=== PATIENT | male | born 1970 | race African-American/Black ===

== ENCOUNTER 2022-11-06 19:18 | Inpatient (IN) | payer BC ==
[~2022-11-06 19:18] MED LIST: HEPARIN SODIUM 1,000 UN/ML (10ML VL) IV ONE; METOPROLOL TARTRATE 5 MG/5 ML VIAL IVP ONE; PRASUGREL 10 MG TAB NG-TUBE ONE
[2022-11-06] MEDS ORDERED: DEXTROSE 5% IN WATER 100 ML with AMIODARONE 150 MG IV ONE ×3 (19:23→21:49)
[2022-11-06 19:26] LABS: Glucose,Whole Blood 153 mg/dL (70-110)
[2022-11-06] MEDS ORDERED: ETOMIDATE 2 MG/ML 10 ML VIAL IVP STA ×2 (19:26→19:32)
[2022-11-06] MEDS ORDERED: ROCURONIUM 10 MG/ML (5 ML VIAL) IV STA ×2 (19:26→19:32)
[2022-11-06] MEDS ORDERED: VERAPAMIL 2.5 MG/ML 2 ML AMP ONE (19:38)
--- NOTE | 2022-11-06 19:46 | ED ---
General Adult HPI - General Chief complaint: Cardiac Arrest/CPR Stated complaint: unresponsive Time Seen by Provider: 11/06/22 19:40 Source: EMS Mode of arrival: EMS Limitations: altered mental status - History of Present Illness Initial comments: Patient presents to the ED by ambulance for evaluation in cardiac arrest. Per EMS, the patient reported having chest pain and was ambulatory to the ambulance when they arrived. Per EMS, the patient was given aspirin his neighbors prior to their arrival, and he was given a dose of nitroglycerin by EMS. Initial EKG obtained by EMS and transmitted to the ED demonstrates ST elevations in leads V2 and V3. EMS reports that the patient became unresponsive and went into ventricular fibrillation arrest shortly thereafter. EMS reports shocking the patient 4 times prior to ED arrival. Patient was not on the nurse monitoring nor was CPR in progress on patient's arrival to the ED. CPR was started and patient was placed on a nurse monitoring immediately upon patient's arrival to the ED. Initial presenting ED cardiac rhythm was ventricular fibrillation. Patient was defibrillated with conversion to a perfusing wide complex rhythm with a measurable blood pressure and palpable peripheral pulses. A left hand peripheral IV was established, but infiltrated when patient was given given an IV amiodarone bolus. Two subsequent peripheral IVs were established, and patient was given another IV amiodarone (150mg) bolus, as well as an amp of IV sodium bicarbonate. Patient was then intubated via RSI, using IV etomidate and IV rocuronium. Dr. Anaya (interventional cardiology) was at bedside with the patient at this point and requested that the patient be transferred immediately to the labor arbitrator hearing office as the labor arbitrator hearing office was ready for him. Blood glucose obtained in the ED was in the 150s. - Related Data Allergies Allergy/AdvReac Type Severity Reaction Status Date / Time Unable to Assess Allergy Verified 11/06/22 19:32 Review of Systems ROS Statement: Those systems with pertinent positive or pertinent negative responses have been documented in the HPI. ROS Other: All systems not noted in ROS Statement are negative. Limitations: ROS unobtainable due to patients medical condition General Exam Limitations: altered mental status General appearance: other (Patient is unresponsive and with agonal respirations prior to intubation) Head exam: Present: atraumatic, normocephalic Eye exam: Present: other (Pupils are equal round and sluggishly reactive to light bilaterally) ENT exam: Present: mucous membranes moist Neck exam: Present: other (Trachea is midline) Respiratory exam: Present: normal lung sounds bilaterally, other (Agonal respirations prior to intubation). Absent: wheezes, rales, rhonchi, stridor Cardiovascular Exam: Present: normal rhythm, tachycardia, normal heart sounds (Normal radial pulses bilaterally (status post defibrillation)), other GI/Abdominal exam: Present: soft. Absent: guarding Extremities exam: Absent: pedal edema Neurological exam: Present: other (Patient is unresponsive and with agonal respirations prior to intubation) Skin exam: Present: warm, dry, intact Course Vital Signs 11/06/22 11/06/22 11/06/22 19:23 19:34 19:40 Pulse Rate 134 H 117 H Respiratory 0 L 14 Rate Blood Pressure 140/101 113/74 O2 Sat by Pulse 100 98 Oximetry Fraction of 100 Inspired Oxygen (FIO2) - Reevaluation(s) Reevaluation #1: 11/06/22 19:15 Code STEMI was activated and prehospital EKG findings were discussed with Dr. Anaya (blasting coal miner) over the phone. Patient has not yet arrived to the ED. 11/06/22 19:40 Patient is showing a normal sinus rhythm on the nurse monitoring and has palpable peripheral pulses at this time. Dr. Anaya is in the ED at bedside with the patient, and he requests sending the patient immediately to the labor arbitrator hearing office. He is aware that no ED EKG has been performed. 11/06/22 20:00 Case, H&P, prehospital EKG findings, ED management, and my discussions with Dr. Anaya as above were discussed with Dr. Sow. He accepts hospital admission. He has no further recommendations at this time. Procedures - Intubation Sedative: Etomidate Mg Given: 20 Paralytic: Rocuronium Mg Given: 50 Assist Device Used: other (Video laryngoscope) ET Tube Size: 8 ET Tube Uncuffed: No Tube Secured Depth (cm): 25 Tube Secured Location: lips Tube Placement Confirmation: visualized tube passing through cords, equal breath sounds bilaterally, no breath sounds over epigastrium Patient Tolerated Procedure: well Intubation Complications: none Medical Decision Making - Medical Decision Making Was pt. sent in by a medical professional or institution (, PA, ADMISSIONS GATE ATTENDANT, urgent care, hospital, or custodial...) When possible be specific @ -[No] Did you speak to anyone other than the patient for history (EMS, parent, family, police, friend...)? What history was obtained from this source @ -History was obtained from EMS. Did you review nursing and triage notes (agree or disagree)? Why? @ -[I reviewed and agree with nursing and triage notes] Were old charts reviewed (outside hosp., previous admission, EMS record, old EKG, old radiological studies, urgent care reports/EKG's, custodial records)? Report findings @ -[No old charts were reviewed] Differential Diagnosis (chest pain, altered mental status, abdominal pain women, abdominal pain men, vaginal bleeding, weakness, fever, dyspnea, syncope, headache, dizziness, GI bleed, back pain, seizure, CVA, palpatations, mental health, musculoskeletal)? @ -ACS/PA, STEMI, cardiac arrest, dysrhythmia, intracranial hemorrhage, syncope, dissection, pulmonary embolism, dehydration, left atrial abnormality, renal failure, hypoglycemia, CHF EKG interpreted by me (3pts min.). @ -[None done] X-rays interpreted by me (1pt min.). @ -Chest x-ray was reviewed myself, and I agree with the radiologist's interpretation as above. CT interpreted by me (1pt min.). @ -[None done] U/S interpreted by me (1pt. min.). @ -[None done] What testing was considered but not performed or refused? (CT, X-rays, U/S, labs)? Why? @ -[None] What meds were considered but not given or refused? Why? @ -[None] Did you discuss the management of the patient with other professionals (professionals i.e. , PA, ADMISSIONS GATE ATTENDANT, lab, RT, psych nurse, drug abuse social worker, passenger service supervisor, teacher, aboriginal liaison officer, supportive employment case manager)? Give summary @ -As above. Was smoking cessation discussed for >3mins.? @ -[No] Was critical care preformed (if so, how long)? @ -Yes, 50 minutes. Were there social determinants of health that impacted care today? How? (Homelessness, low income, unemployed, alcoholism, drug addiction, transportation, low edu. Level, literacy, decrease access to med. care, fpc, rehab)? @ -[No] Was there de-escalation of care discussed even if they declined (Discuss DNR or withdrawal of care, Hospice)? DNR status @ -[No] What co-morbidities impacted this encounter? (DM, HTN, Smoking, COPD, CAD, Cancer, CVA, ARF, Chemo, Hep., AIDS, mental health diagnosis, sleep apnea, morbid obesity)? @ -[None] Was patient admitted / discharged? Hospital course, mention meds given and route, prescriptions, significant lab abnormalities, going to OR and other pertinent info. @ -[Code STEMI was activated prior to patient's arrival to the ED based off of the initial EKG obtained by EMS and transmitted to the ED, which demonstrates ST elevations in leads V2 and V3. EMS reports that the patient became un responsive and went into ventricular fibrillation arrest shortly thereafter. EMS reports shocking the patient 4 times prior to ED arrival. Patient was not on the nurse monitoring nor was CPR in progress on patient's arrival to the ED. CPR was started and patient was placed on a nurse monitoring immediately upon patient's arrival to the ED. Initial presenting ED cardiac rhythm was ventricular fibrillation. Patient was defibrillated with conversion to a perfusing wide complex rhythm with a measurable blood pressure and palpable peripheral pulses. A left hand peripheral IV was established, but infiltrated when patient was given given an IV amiodarone bolus. Two subsequent peripheral IVs were established, and patient was given another IV amiodarone (150mg) bolus, as well as an amp of IV sodium bicarbonate. Patient was then intubated via RSI, using IV etomidate and IV rocuronium. Dr. Anaya (interventional cardiology) was at bedside with the patient at this point and requested that the patient be transferred immediately to the labor arbitrator hearing office, as the labor arbitrator hearing office was ready for him. Blood glucose obtained in the ED was in the 150s. Case was then discussed with Dr. Sow who accepted hospital admission.] Undiagnosed new problem with uncertain prognosis? @ -No Drug Therapy requiring intensive monitoring for toxicity (Heparin, Nitro, Insulin, Cardizem)? @ -[No] Were any procedures done? @ -[No] Diagnosis/symptom? @ -[Ventricular fibrillation cardiac arrest] Acute, or Chronic, or Acute on Chronic? @ -Acute Uncomplicated (without systemic symptoms) or Complicated (systemic symptoms)? @ -Complicated Side effects of treatment? @ -[No] Exacerbation, Progression, or Severe Exacerbation? @ -[No] Poses a threat to life or bodily function? How? (Chest pain, USA, PA, pneumonia, PE, COPD, DKA, ARF, appy, cholecystitis, CVA, Diverticulitis, Homicidal, Suicidal, threat to staff... and all critical care pts) @ -[No] Diagnosis/symptom? @ -STEMI Acute, or Chronic, or Acute on Chronic? @ -Acute Uncomplicated (without systemic symptoms) or Complicated (systemic symptoms)? @ -Complicated Side effects of treatment? @ -[none] Exacerbation, Progression, or Severe Exacerbation] @ -[no] Poses a threat to life or bodily function? @ -[no] - Lab Data Result diagrams: 11/06/22 19:53 11/06/22 19:53 Lab Results 11/06/22 11/06/22 11/06/22 Range/Units 19:24 19:53 19:53 WBC 16.4 H (3.8-10.6) k/uL RBC 5.27 (4.30-5.90) m/uL Hgb 16.2 (13.0-17.5) gm/dL Hct 51.1 (39.0-53.0) % MCV 96.9 (80.0-100.0) fL MCH 30.8 (25.0-35.0) pg MCHC 31.8 (31.0-37.0) g/dL RDW 12.8 (11.5-15.5) % Plt Count 282 (150-450) k/uL MPV 7.5 PT 9.7 (9.0-12.0) sec INR 0.9 (<1.2) APTT 22.4 (22.0-30.0) sec Sodium (137-145) mmol/L Potassium (3.5-5.1) mmol/L Chloride (98-107) mmol/L Carbon Dioxide (22-30) mmol/L Anion Gap mmol/L BUN (9-20) mg/dL Creatinine (0.66-1.25) mg/dL Est GFR (CKD-EPI)AfAm (>60 ml/min/1.73 sqM) Est GFR (CKD-EPI)NonAf (>60 ml/min/1.73 sqM) Glucose (74-99) mg/dL POC Glucose (mg/dL) 153 H (70-110) mg/dL POC Glu Cargo Checker ID [place] Calcium (8.4-10.2) mg/dL Magnesium (1.6-2.3) mg/dL Total Bilirubin (0.2-1.3) mg/dL AST (17-59) U/L ALT (4-49) U/L Alkaline Phosphatase (38-126) U/L Troponin I (0.000-0.034) ng/mL NT-Pro-B Natriuret Pep pg/mL Total Protein (6.3-8.2) g/dL Albumin (3.5-5.0) g/dL 11/06/22 11/06/22 11/06/22 Range/Units 19:53 19:53 19:53 WBC (3.8-10.6) k/uL RBC (4.30-5.90) m/uL Hgb (13.0-17.5) gm/dL Hct (39.0-53.0) % MCV (80.0-100.0) fL MCH (25.0-35.0) pg MCHC (31.0-37.0) g/dL RDW (11.5-15.5) % Plt Count (150-450) k/uL MPV PT (9.0-12.0) sec INR (<1.2) APTT (22.0-30.0) sec Sodium 144 (137-145) mmol/L Potassium 3.6 (3.5-5.1) mmol/L Chloride 106 (98-107) mmol/L Carbon Dioxide 19 L (22-30) mmol/L Anion Gap 19 mmol/L BUN 9 (9-20) mg/dL Creatinine 1.14 (0.66-1.25) mg/dL Est GFR (CKD-EPI)AfAm 86 (>60 ml/min/1.73 sqM) Est GFR (CKD-EPI)NonAf 75 (>60 ml/min/1.73 sqM) Glucose 135 H (74-99) mg/dL POC Glucose (mg/dL) (70-110) mg/dL POC Glu Cargo Checker ID Calcium 9.2 (8.4-10.2) mg/dL Magnesium 1.9 (1.6-2.3) mg/dL Total Bilirubin 0.9 (0.2-1.3) mg/dL AST 37 (17-59) U/L ALT 34 (4-49) U/L Alkaline Phosphatase 57 (38-126) U/L Troponin I 0.041 H* (0.000-0.034) ng/mL NT-Pro-B Natriuret Pep 32 pg/mL Total Protein 8.4 H (6.3-8.2) g/dL Albumin 4.7 (3.5-5.0) g/dL Critical Care Time Critical Care Time: Yes Total Critical Care Time: 50 Disposition Clinical Impression: Cardiac arrest with ventricular fibrillation, STEMI (ST elevation myocardial infarction) Disposition: ADMITTED IP TO THIS HOSP Condition: Critical Is patient prescribed a controlled substance at d/c from ED?: No Time of Disposition: 20:01
--- NOTE | 2022-11-06 19:54 | P.CRDCN ---
History of Present Illness Consult date: 11/06/22 History of present illness: History of Present Illness: The patient is a 52-year-old male who had an episode of chest discomfort at home, according to the ER staff upon arrival of the EMS he had a V. fib arrest requiring 4 cardioversions, subsequently was transferred to the ER on arrival he was unresponsive and was back in ventricular fibrillation requiring cardioversion and intubation. His EKG showed ST segment elevation anteriorly. The patient is intubated, unresponsive, in sinus mechanism with wide-complex rhythm and with a blood pressure around the 100 mmHg. No other history or family where available. Medications: Could not be obtained Review of Systems: Could not be obtained Physical Examination: 52-year-old male overweight intubated, nonresponsive ,Blood pressure 100/70, Heart rate 100 Head: Normocephalic. Eyes: Sclerae nonicteric. Neck: Good carotid upstroke, no bruit, no jugular venous distention. Lungs: Clear to auscultation. Heart: Regular rate and rhythm, S1-S2, no S3, no rub. No murmur. Abdomen: Soft nontender, positive bowel sounds no organomegaly. Extremities: No edema, intact distal pulses. Labs: Pending EKG: Initial EKG from EMS showed sinus mechanism with ST elevation in the anterior precordial leads Impression: 1. Acute anterior wall myocardial infarction 2. Ventricular fibrillation complicating the myocardial infarction 3. Respiratory failure Plan: 1. I have recommended to proceed with emergent cardiac catheterization in view of the presentation 2. Depending on the findings further recommendations will be made 3. The prognosis is guarded 4. No family was available 5. Thank you for this consult we will follow with you Medications and Allergies Allergies Allergy/AdvReac Type Severity Reaction Status Date / Time Unable to Assess Allergy Verified 11/06/22 19:32 Physical Exam Vitals: Vital Signs Pulse Resp BP Pulse Ox 11/06/22 19:34 117 H 14 113/74 98 11/06/22 19:23 134 H 0 L 140/101 100 Intake and Output 11/06/22 11/06/22 11/06/22 06:59 14:59 22:59 Other: Weight 158.258 kg Results Intake and Output 11/06/22 11/06/22 11/06/22 06:59 14:59 22:59 Other: Weight 158.258 kg Patient Weight 11/07/22 07:59 Weight 158.258 kg
[2022-11-06] MEDS ORDERED: SODIUM CHLORIDE 0.9% 1,000 ML IV ONE (19:56)
[2022-11-06] MEDS ORDERED: LIDOCAINE 1% INJ 10MG/ML (30 ML VIAL-PF) SQ ONE (19:57)
--- NOTE | 2022-11-06 19:57 | XR ---
EXAMINATION TYPE: XR chest 1V portable DATE OF EXAM: 11/06/2022 COMPARISON: NONE HISTORY: Cardiac arrest TECHNIQUE: Single view FINDINGS: There is some minimal pulmonary interstitial edema. Heart is top normal in size. Endotrache al tube is 3.4 cm from the mica. No pleural effusion. No pneumothorax. IMPRESSION: Mild increased pulmonary interstitial density.
[2022-11-06] MEDS ORDERED: VERAPAMIL SYRINGE (5 MG/10 ML) INTRAARTER ONE (19:59)
[2022-11-06 20:02] LABS: HCT 51.1 % (39.0-53.0); HGB 16.2 gm/dL (13.0-17.5); MCH 30.8 pg (25.0-35.0); MCHC 31.8 g/dL (31.0-37.0); MCV 96.9 fL (80.0-100.0); Mean Platelet Volume 7.5; Platelet Count 282 k/uL (150-450); RBC 5.27 m/uL (4.30-5.90); RDW 12.8 % (11.5-15.5); WBC 16.4 k/uL (3.8-10.6)
[2022-11-06] MEDS ORDERED: METOPROLOL TARTRATE 5 MG/5 ML VIAL IVP ONE ×5 (20:05→21:41)
[2022-11-06] MEDS ORDERED: PRASUGREL 10 MG TAB NG-TUBE ONE (20:05)
[2022-11-06] MEDS: HEPARIN SODIUM 1,000 UN/ML (10ML VL) IV ONE ×2 (20:05→21:13)
[2022-11-06] MEDS ORDERED: PRASUGREL 10 MG TAB ONE (20:07)
[2022-11-06] MEDS: MIDAZOLAM 2 MG/2 ML VIAL IV ONE ×4 (20:11→21:28)
[2022-11-06 20:14] LABS: Albumin 4.7 g/dL (3.5-5.0); Calcium 9.2 mg/dL (8.4-10.2); Magnesium 1.9 mg/dL (1.6-2.3); Potassium 3.6 mmol/L (3.5-5.1); Total Bilirubin 0.9 mg/dL (0.2-1.3); Total Protein 8.4 g/dL (6.3-8.2)
[2022-11-06 20:23] LABS: ABG Base Excess -5.6 mmol/L; ABG HCO3 22 mmol/L (21-25); ABG PCO2 53 mmHg (35-45); ABG PH 7.23 (7.35-7.45); ABG TCO2 24 mmol/L (19-24); Allen Test Performed? Yes
[2022-11-06] MEDS ORDERED: MIDAZOLAM 2 MG/2 ML VIAL IVP ONE ×2 (20:23→21:17)
[2022-11-06] MEDS ORDERED: IOPAMIDOL-370 125ML BTL INJ ONE (20:23)
[2022-11-06 20:28] LABS: INR 0.9 (<1.2); Partial Thromboplastin Time 22.4 sec (22.0-30.0); Prothrombin Time 9.7 sec (9.0-12.0)
[2022-11-06 20:40] LABS: ABG PO2 59 mmHg (83-108)
[2022-11-06 20:47] LABS: Eosinophils # (M) 0.66 k/uL (0-0.7); Lymphocytes # (M) 7.87 k/uL (1.0-4.8); Monocytes # (M) 0.82 k/uL (0-1.0); Neutrophils # (M) 7.05 k/uL (1.3-7.7); Neutrophils % (M) 43 %; Nucleated Red Blood Cells 0 /100 WBC (0-0); Total Cells Counted 100
[2022-11-06 20:50] LABS: RBC Morphology Normal
[2022-11-06 20:58] LABS: ABG Base Excess -5.3 mmol/L; ABG HCO3 22 mmol/L (21-25); ABG Oxygen Saturation 99.1 % (94-97); ABG PCO2 49 mmHg (35-45); ABG PH 7.26 (7.35-7.45); ABG PO2 126 mmHg (83-108); ABG TCO2 23 mmol/L (19-24); Allen Test Performed? Yes
[2022-11-06] MEDS ORDERED: IOPAMIDOL-370 100ML BTL INJ ONE (20:58)
[2022-11-06] MEDS ORDERED: fentaNYL (PF) 50 MCG/ML 2 ML AMP ONE (21:05)
[2022-11-06] MEDS ORDERED: NITROGLYCERIN SL TABS 0.4 MG TAB SUBLINGUAL PRN (21:17)
[2022-11-06] MEDS ORDERED: MAG HYDROX/AL HYDROX/SIMETH 30 ML CUP PO PRN (21:17)
[2022-11-06] MEDS ORDERED: ZOLPIDEM 5 MG TAB PO PRN (21:17)
[2022-11-06] MEDS ORDERED: ATROPINE SULFATE 0.1 MG/ML 10ML SYRINGE IV PRN (21:17)
[2022-11-06] MEDS: fentaNYL (PF) 50 MCG/1 ML VIAL IVP ONE ×2 (21:17→21:38)
[2022-11-06] MEDS ORDERED: RX INFO: IV CONTRAST WAS GIVEN 1 EACH MISC MISCELLANE PRN (21:17)
[2022-11-06] MEDS ORDERED: EPINEPHrine 10 ML SYRINGE (0.1 MG/ML) IV ONE (21:33)
[2022-11-06] MEDS ORDERED: SODIUM CHLORIDE 0.9% 500 ML 500 ML IV ONE (21:33)
[2022-11-06] MEDS ORDERED: LIDOCAINE 2% SYG (PF) 100 MG/5 ML IV ONE (21:35)
[2022-11-06] MEDS ORDERED: AMIODARONE 50 MG/ML 3 ML VIAL IV ONE (21:38)
--- NOTE | 2022-11-06 21:47 | P.CARDCATH ---
Date of Procedure: 11/06/22 Description of Procedure: Cardiac Catheterization: The patient is a 52-year-old male with unknown prior history who had an episode of chest comfort subsequently collapsed at home, was found by EMS to be in ventricular fibrillation, requiring 4 cardioversions, when he presented to the emergency room he was unresponsive and was back in V. fib was intubated and cardioverted. His EKG showed ST segment elevation anteriorly. No family was available. Recommendations were made regarding cardiac catheterization, Procedure Description: Patient was brought to labeling machine operator intubated and unresponsive. In the Seldinger technique, a 6-Tongan sheath was introduced in the right radial artery . Subsequently, selective coronary angiography was performed using a 5-Tongan 3.5 bend right Anish catheter, prior to that left coronary angiography was performed using a 6-Tongan 3.75 EBU guiding catheter. Multiple views of the coronary artery including hemiaxial views were obtained. After performing angioplasty and stenting, images of the right coronary artery were performed. PCI: Using the EBU guiding catheter and after cannulating the left main a 0.014 BMW J-wire was advanced across the total occlusion of the proximal LAD and positioned distally subsequently a 3.0 x 12 mm Treck was advanced into inflation at 8 alena were done, after removing the balloon a 3.5 x 23 mm Xience evette point stent was advanced and deployed at 16 alena, subsequently a 3.5X18 mm Xience evette point stent was deployed proximal to the first one and deployed at 16 alena, after removing the balloon an IVUS [place] catheter was introduced and imaging were obtained, after removing the catheter 4.0 x 20 mm NC Treck balloon was advanced and inflation up to 10 alena was done. After the last inflation and after appropriate wait the balloon and the wire were withdrawn back in the guiding catheter, images were obtained and reveal stable successful stenting. Subsequently The 5-Tongan pigtail catheter was used to cross the aortic valve and LVEDP was calculated. Following that, catheter and sheath were removed. Hemostasis was obtained with deployment of TR band . Of note, the patient received a total of 11,000 units of intravenous heparin as well as intra- arterial verapamil. He received an oral loading dose of Effient, his ACT was monitored. There was improvement in his ST segment elevation. Upon transferring the patient to his bed he had recurrent ventricular fibrillation requiring cardioversion 3, he was started on IV amiodarone and received lidocaine bolus with stabilization of his rhythm. His blood pressure was stable. Findings: Left main: This is a short sized vessel, bifurcating into LAD and left circumflex, left main has no high-grade stenosis LAD: This vessel is totally occluded proximally with no antegrade flow Left circumflex: This is a large nondominant vessel giving rise to a large obtuse marginal branch that has no evidence of high-grade stenosis RCA: This is a large dominant vessel bifurcating to PDA and PLV, the RCA has no evidence of high-grade stenosis Left Ventriculogram: Not performed Hemodynamics: There was no gradient across the aortic valve , LVEDP was 8-10 mmHg Conclusion: 1. Acutely occluded proximal LAD 2. No obstructive disease in the RCA and left circumflex 3. Successful stenting of the proximal LAD with reduction of stenosis from 100% to 0% with intravascular ultrasound imaging 4. Low left ventricle end-diastolic pressure Recommendations: The patient will continue on aspirin and Effient for at least 1 year without any interruption in addition to aggressive coronary risks modifications. The prognosis remains guarded. Further evaluation of his neurological status will be needed to rule out significant anoxic encephalopathy. No family was available to be updated. Duration of sedation is 63 minutes.
[2022-11-06 21:52] LABS: Glucose,Whole Blood 288 mg/dL (70-110)
[2022-11-06] MEDS ORDERED: AMIODARONE 360 MG in DEXTROSE 5% IN WATER 200 ML IV ONE ×2 (22:00)
[2022-11-06] MEDS ORDERED: propofoL 100 ML IV ONE (22:10)
[2022-11-06] MEDS ORDERED: Potassium Replacement Protocol 1 EACH MISC MISCELLANE PRN (22:24)
[2022-11-06] MEDS: NOREPINEPHRINE 4 MG in SODIUM CHLORIDE 0.9% 250 ML IV SCH (22:35)
[2022-11-06] MEDS: SODIUM CHLORIDE 0.9% 1,000 ML in EMPTY BAG 1 BAG IV SCH (22:48)
[2022-11-06] MEDS ORDERED: POTASSIUM BICARBONATE/CIT AC 20 MEQ TABLET.EFF NG-TUBE SCH (23:00)
[2022-11-06 23:03] LABS: Calcium 7.9 mg/dL (8.4-10.2); Potassium 3.2 mmol/L (3.5-5.1)
[2022-11-07 00:11] LABS: ABG Base Excess -4.1 mmol/L; ABG HCO3 22 mmol/L (21-25); ABG PCO2 40 mmHg (35-45); ABG PH 7.35 (7.35-7.45); ABG PO2 396 mmHg (83-108); ABG TCO2 23 mmol/L (19-24); Allen Test Performed? Yes
[2022-11-07] MEDS ORDERED: Potassium Replacement Protocol 1 EACH MISC MISCELLANE PRN (00:35)
--- NOTE | 2022-11-07 00:36 | P.HPIM ---
History of Present Illness H&P Date: 11/06/22 The patient is a 52-year-old male with a PMH of type II DM who was brought into the emergency room by EMS for cardiac arrest. History obtained from the ED provider in the chart as the patient was intubated at the time of interview. The patient had reportedly had an episode of chest discomfort at home where he had activated EMS. The patient was reportedly thengiven aspirin by his neigh bors and upon EMS arrival, he was ambulatory and was given sublingual nitroglycerin. Initial EKG was obtained which revealed ST elevations in leads V2 and V3. The patient subsequently became unresponsive and developed V. fib arrest. The patient was reportedly shocked 4 times by EMS. After arrival at the emergency room, the patient was noted to be in arrest and CPR was again initiated with initial rhythm being V. fib. The patient underwent another defibrillation with subsequent wide complex rhythm. He was intubated and was taken to the laborer shellfish processing which revealed an acutely occluded proximal LAD which was subsequently stented. Review of systems: Unable to obtain Physical examination: Vital signs reviewed General: Intubated male, no distress, appears at stated age, morbidly obese Derm: no unusual rashes/lesions, warm Head: atraumatic, normocephalic, symmetric Eyes: anicteric sclera, pinpoint pupils bilaterally ENT: Nose and ears atraumatic Neck: No cervical lymphadenopathy, trachea midline, supple Mouth: no lip lesion Cardiovascular: S1S2 reg, no murmur, positive dorsalis pedis pulse bilateral, no edema Lungs: CTA bilateral, no rhonchi, no rales, no accessory muscle use Abdominal: soft, no rigidity Ext: no gross muscle atrophy, no contractures, Neuro: Unable to assess, patient intubated and sedated Assessment: ST elevation CA from an acutely occluded LAD Status post V. fib arrest Type II DM Imaging: Chest x-ray in the emergency room revealed minimal pulmonary interstitial edema. Data Review: Laboratory evaluation was reviewed and was remarkable for leukocytosis of 16.4, pH 7.23, pCO2 53, pO2 59, CO2 19, glucose 135, troponin I 0.041, proBNP 32. Plan: Continue with amiodarone infusion Continue with aspirin 81 mg by mouth daily, Lipitor 80 mg by mouth daily at bedtime, and Lopressor 25 mg by mouth twice a day Continue with mechanical ventilation with pulmonary hygiene Insulin sliding scale and blood glucose monitoring Check A1c DVT prophylaxis: Heparin subq The patient is admitted with an anticipated greater than 2 midnight stay for evaluation of v fib arrest CODE STATUS: Full Code Discussed with: Ex-, daughter Past Medical History - Past Family History Mother Family Medical History: Unable to Obtain (patient intubaed) Medications and Allergies Home Medications Medication Instructions Recorded Confirmed Type Unable To Assess [Unable to Assess] 11/06/22 11/06/22 History Allergies Allergy/AdvReac Type Severity Reaction Status Date / Time Unable to Assess Allergy Verified 11/06/22 19:32 Physical Exam Vitals: Vital Signs Pulse Resp BP Pulse Ox FiO2 11/06/22 22:18 100 11/06/22 21:52 100 11/06/22 19:40 100 11/06/22 19:34 117 H 14 113/74 98 11/06/22 19:23 134 H 0 L 140/101 100 Intake and Output 11/06/22 11/06/22 11/07/22 14:59 22:59 07:59 Intake Total 808.040 Balance 808.040 Intake: IV 800 Intake, IV Titration 8.040 Amount Norepinephrine 4 mg In 8.040 Sodium Chloride 0.9% 250 ml @ 0.03 MCG/KG/MIN 18. 089 mls/hr IV .Q14H3M [facility] Rx#:[id number] Other: Weight 158.258 kg Results CBC & Chem 7: 11/07/22 04:19 11/07/22 04:19 Labs: Abnormal Lab Results - Last 24 Hours (Table) 11/06/22 11/06/22 11/06/22 Range/Units 19:24 19:53 19:53 WBC 16.4 H (3.8-10.6) k/uL Lymphocytes # (Manual) 7.87 H (1.0-4.8) k/uL ABG pH (7.35-7.45) ABG pCO2 (35-45) mmHg ABG pO2 (83-108) mmHg ABG O2 Saturation (94-97) % Potassium (3.5-5.1) mmol/L Carbon Dioxide 19 L (22-30) mmol/L Glucose 135 H (74-99) mg/dL POC Glucose (mg/dL) 153 H (70-110) mg/dL Calcium (8.4-10.2) mg/dL Troponin I (0.000-0.034) ng/mL Total Protein 8.4 H (6.3-8.2) g/dL 11/06/22 11/06/22 11/06/22 Range/Units 19:53 20:20 20:56 WBC (3.8-10.6) k/uL Lymphocytes # (Manual) (1.0-4.8) k/uL ABG pH 7.23 L 7.26 L (7.35-7.45) ABG pCO2 53 H 49 H (35-45) mmHg ABG pO2 59 L* 126 H (83-108) mmHg ABG O2 Saturation 87.0 L 99.1 H (94-97) % Potassium (3.5-5.1) mmol/L Carbon Dioxide (22-30) mmol/L Glucose (74-99) mg/dL POC Glucose (mg/dL) (70-110) mg/dL Calcium (8.4-10.2) mg/dL Troponin I 0.041 H* (0.000-0.034) ng/mL Total Protein (6.3-8.2) g/dL 11/06/22 11/06/22 11/06/22 Range/Units 21:51 22:00 22:00 WBC (3.8-10.6) k/uL Lymphocytes # (Manual) (1.0-4.8) k/uL ABG pH (7.35-7.45) ABG pCO2 (35-45) mmHg ABG pO2 (83-108) mmHg ABG O2 Saturation (94-97) % Potassium 3.2 L (3.5-5.1) mmol/L Carbon Dioxide (22-30) mmol/L Glucose 272 H (74-99) mg/dL POC Glucose (mg/dL) 288 H (70-110) mg/dL Calcium 7.9 L (8.4-10.2) mg/dL Troponin I 3.110 H* (0.000-0.034) ng/mL Total Protein (6.3-8.2) g/dL
[2022-11-07] MEDS ORDERED: MAGNESIUM SULFATE-D5W PMX 1 GM in DEXTROSE/WATER 1 100ML.BAG IVPB ONE ×2 (00:38→22:05)
[2022-11-07] MEDS ORDERED: Magnesium Replacement Protocol 1 EACH MISC MISCELLANE PRN (00:38)
[2022-11-07 00:53] LABS: Glucose,Whole Blood 190 mg/dL (70-110)
[2022-11-07] MEDS ORDERED: POTASSIUM BICARBONATE/CIT AC 20 MEQ TABLET.EFF NG-TUBE SCH (01:00)
[2022-11-07] MEDS ORDERED: SODIUM CHLORIDE 0.9% 1,000 ML IV ONE (01:01)
[2022-11-07] MEDS ORDERED: ALBUMIN HUMAN 25% 50 ML in EMPTY BAG 1 BAG IVPB ONE (01:02)
[2022-11-07] MEDS ORDERED: METOPROLOL TARTRATE 5 MG/5 ML VIAL IVP PRN ×2 (01:46→01:53)
[2022-11-07 01:58] LABS: Amphetamine Screen,Urine Not Detected (NotDetected); Barbiturate Screen,Urine Not Detected (NotDetected); Benzodiazepines Screen,Urine Not Detected (NotDetected); Cocaine Screen,Urine Not Detected (NotDetected); Methadone Screen, Urine Not Detected (NotDetected); Opiate Screen,Urine Not Detected (NotDetected); Oxycodone Screen, Urine Not Detected (NotDetected); Phencyclidine Screen,Urine Not Detected (NotDetected); Tricyclic Antidepressant,Urine Not Detected (NotDetected); Urn Cannabinoid Scrn Detected (NotDetected)
[2022-11-07] MEDS ORDERED: DEXTROSE 5% IN WATER 100 ML with AMIODARONE 150 MG IV ONE (03:04)
[2022-11-07 03:20] LABS: Glucose,Whole Blood 178 mg/dL (70-110)
[2022-11-07] MEDS: ALBUTEROL NEBULIZED 2.5 MG/3 ML INHALATION SCH ×6 (03:34→20:43)
[2022-11-07] MEDS: SODIUM CHLORIDE 0.9% 80 ML with fentaNYL (PF) 1,000 MCG IV SCH ×4 (03:36→11:02)
[2022-11-07] MEDS: INSULIN ASPART (NovoLOG) 100 UNIT/ML VIAL SQ SCH ×5 (03:36→20:01)
[2022-11-07 04:30] LABS: Basophils # (A) 0.1 k/uL (0-0.2); Basophils % (A) 0 %; Eosinophils # (A) 0.2 k/uL (0-0.7); Eosinophils % (A) 1 %; HCT 48.5 % (39.0-53.0); HGB 15.1 gm/dL (13.0-17.5); Lymphocytes # (A) 2.7 k/uL (1.0-4.8); Lymphocytes % (A) 15 %; MCH 29.6 pg (25.0-35.0); MCHC 31.2 g/dL (31.0-37.0); MCV 94.6 fL (80.0-100.0); Mean Platelet Volume 7.3; Monocytes # (A) 0.5 k/uL (0-1.0); Monocytes % (A) 3 %; Neutrophils % (A) 80 %; Platelet Count 368 k/uL (150-450); RBC 5.12 m/uL (4.30-5.90); RDW 13.2 % (11.5-15.5); WBC 17.6 k/uL (3.8-10.6)
[2022-11-07 04:48] LABS: Potassium 4.2 mmol/L (3.5-5.1)
[2022-11-07] MEDS: AMIODARONE 450 MG in DEXTROSE 5% IN WATER 250 ML IV SCH ×4 (04:54→19:45)
[2022-11-07 05:11] LABS: Glucose,Whole Blood 182 mg/dL (70-110)
[2022-11-07] MEDS: NOREPINEPHRINE 4 MG in SODIUM CHLORIDE 0.9% 250 ML IV SCH (06:37)
[2022-11-07] MEDS ORDERED: INSULIN ASPART (NovoLOG) 100 UNIT/ML VIAL SQ SCH (07:30)
[2022-11-07] MEDS: ASPIRIN 81 MG PO SCH (09:10)
[2022-11-07] MEDS: METOPROLOL TARTRATE 25 MG TAB PO SCH ×2 (09:10→20:04)
[2022-11-07 09:12] LABS: Calcium 8.4 mg/dL (8.4-10.2)
--- NOTE | 2022-11-07 09:19 | P.CNPUL ---
History of Present Illness Consult date: 11/07/22 Chief complaint: Cardiac arrest History of present illness: 52-year-old -[place] male patient, had an episode of chest pain and collapsed at home. EMS came to the scene and the patient was found to be in V. fib. The patient required defibrillation 4. He presented to the emergency department unresponsive and he went again into ventricular fibrillation. He was intubated, defibrillated, EKG showed ST segment elevation anteriorly and the patient was taken immediately to emergent cardiac catheterization and the patient was found to have acutely occluded proximal LAD. No abnormalities within the RCA or circumflex. The patient underwent successful stenting of the proximal LAD. Left ventricular end-diastolic pressure was low. The patient was brought into the intensive care unit intubated on a mechanical ventilator. He was kept on propofol. Propofol was dropping his pressure initially and we had to use some fentanyl. This morning fentanyl is often the patient is strictly on propofol at the rate of 40 mcg/kg/m. His calm and comfortable. Overnight, he became hypotensive. He was given IV fluids a total of 2 L he was also given IV albumin. His blood pressure responded. He required pressors, norepinephrine was as high as 26 mcg/m and currently is on a norepinephrine at a dose of 0.06 microvascular kilogram per minute. Urine output is adequate. He does have some diminished pulses in lower extremities, good femoral pulses for now. He had this procedure done through the right radial approach. Chest x-ray was showing some pulmonary edema. The patient has adequate oxygenation. The patient is currently on assist-control mode of mechanical ventilation at the rate of 26, tidal volume 500, FiO2 was 60% and a PEEP of 10. Blood gas shows adequate oxygenation and ventilation. The troponin peaked at 12. The patient has another episode of ventricular fibrillation immediately following the procedure. He was started on amiodarone. Currently amiodarone drip is running at 0.5 mg/m. Blood sugars were elevated and the patient was started on a sliding scale insulin coverage. Potassium was also replaced. Review of Systems ROS unobtainable: due to endotracheal tube Past Medical History Past Medical History: Coronary Artery Disease (CAD), Chest Pain / Angina, Diabetes Mellitus, Myocardial Infarction (MD) Last Myocardial Infarction Date:: 11/06/22 History of Any Multi-Drug Resistant Organisms: None Reported Past Surgical History: No Surgical Hx Reported Past Anesthesia/Blood Transfusion Reactions: No Reported Reaction Smoking Status: Current every day smoker - Past Family History Mother Family Medical History: Unable to Obtain (patient intubaed) Medications and Allergies Home Medications Medication Instructions Recorded Confirmed Type Unable To Assess [Unable to Assess] 11/06/22 11/06/22 History Allergies Allergy/AdvReac Type Severity Reaction Status Date / Time No Known Allergies Allergy Verified 11/07/22 07:13 Physical Exam Vitals: Vital Signs Temp Pulse Pulse Resp BP Pulse Ox FiO2 11/07/22 08:02 60 11/07/22 07:00 71 26 H 111/79 60 11/07/22 06:50 71 26 H 111/79 11/07/22 06:40 73 26 H 100/46 11/07/22 06:30 73 26 H 115/66 11/07/22 06:20 71 26 H 115/66 11/07/22 06:10 74 26 H 117/94 11/07/22 06:00 75 26 H 117/74 11/07/22 05:50 73 26 H 117/74 11/07/22 05:40 72 26 H 117/74 11/07/22 05:30 71 26 H 112/73 11/07/22 05:20 70 26 H 112/73 11/07/22 05:10 71 26 H 112/31 11/07/22 05:00 70 4 L 95/49 11/07/22 04:50 70 0 L 95/49 11/07/22 04:40 70 0 L 98/43 11/07/22 04:30 71 0 L 103/39 11/07/22 04:20 71 8 L 103/39 11/07/22 04:10 79 2 L 100/68 100 11/07/22 04:00 98.9 F 74 26 H 93/60 100 60 11/07/22 03:52 73 26 H 60 11/07/22 03:50 70 26 H 93/60 100 11/07/22 03:40 73 26 H 90/75 100 11/07/22 03:30 74 26 H 91/66 100 11/07/22 03:20 78 26 H 94/50 99 11/07/22 03:10 80 26 H 103/62 98 11/07/22 03:00 112/69 11/07/22 01:50 82 26 H 112/69 97 11/07/22 01:40 94 26 H 102/64 97 11/07/22 01:30 81 26 H 101/46 97 11/07/22 01:20 82 26 H 101/46 96 11/07/22 01:10 81 26 H 101/64 96 11/07/22 01:00 81 26 H 101/68 95 60 11/07/22 00:50 80 26 H 101/68 97 11/07/22 00:40 89 26 H 86/73 95 11/07/22 00:30 82 26 H 94/60 96 11/07/22 00:20 84 26 H 94/60 96 11/07/22 00:19 60 11/07/22 00:10 87 26 H 95 11/07/22 00:00 82 82 26 H 77/47 96 60 11/06/22 23:50 82 26 H 77/47 100 11/06/22 23:40 81 26 H 76/37 100 11/06/22 23:30 77 26 H 79/51 100 100 11/06/22 23:20 78 26 H 79/51 100 11/06/22 23:10 79 26 H 82/35 100 11/06/22 23:00 80 26 H 74/46 100 11/06/22 22:50 83 26 H 74/46 100 11/06/22 22:40 85 26 H 66/43 100 11/06/22 22:30 87 26 H 111/91 100 11/06/22 22:20 86 26 H 114/75 100 11/06/22 22:18 100 11/06/22 22:10 85 26 H 66/33 100 11/06/22 22:00 97.5 F L 89 26 H 89/57 80 11/06/22 21:52 93 35 H 100 11/06/22 19:40 100 11/06/22 19:34 117 H 14 113/74 98 11/06/22 19:23 134 H 0 L 140/101 100 Intake and Output 11/06/22 11/07/22 11/07/22 21:59 06:59 14:59 Intake Total 452.852 Output Total 180 Balance 272.852 Intake: IV 300 Sodium Chloride 0.9% 1, 300 000 ml In Empty Bag 1 bag @ 100 mls/hr IV .Q10H [facility] Rx#:[id number] Intake, IV Titration 152.852 Amount Norepinephrine 4 mg In 105.217 Sodium Chloride 0.9% 250 ml @ 0.03 MCG/KG/MIN 18. 089 mls/hr IV .Q14H3M [facility] Rx#:[id number] propofoL 1,000 mg In 47.635 Empty Bag 1 bag @ 15 MCG/ KG/MIN 14.243 mls/hr IV . Q7H2M [facility] Rx#:[id number] Output: Urine 180 Other: Weight Gen. appearance, calm and comfortable, sedated on propofol, not having any acute respiratory distress Head exam was generally normal. There was no scleral icterus or corneal arcus. Mucous membranes were moist. Neck was supple and without jugular venous distension, thyromegaly, or carotid bruits. Carotids were easily palpable bilaterally. There was no adenopathy. Orogastric and orotracheal tube are both in place. Lungs were clear to auscultation and percussion, and with normal diaphragmatic excursion. No wheezes or rales were noted. Cardiac exam revealed the PMI to be normally situated and sized. The rhythm was regular and no extrasystoles were noted during several minutes of auscultation. The first and second heart sounds were normal and physiologic splitting of the second heart sound was noted. There were no murmurs, rubs, clicks, or gallops. Abdominal exam revealed normal bowel sounds. The abdomen was soft, non-tender, and without masses, organomegaly, or appreciable enlargement of the abdominal aorta. Extremities revealed diminished pulses are palpable. No cyanosis or clubbing. Neurologically the patient is sedated. The patient in the process of getting a sedation holiday. Pupils are equal reactive to light. He arouses and withdrawal to painful stimulation. Results - Laboratory Findings CBC and BMP: 11/07/22 04:19 11/07/22 04:19 ABG ABG pH 7.35 (7.35-7.45) 11/07/22 00:05 ABG pCO2 40 mmHg (35-45) 11/07/22 00:05 ABG pO2 396 mmHg (83-108) H 11/07/22 00:05 ABG O2 Saturation 100.0 % (94-97) H 11/07/22 00:05 PT/INR, D-dimer PT 9.7 sec (9.0-12.0) 11/06/22 19:53 INR 0.9 (<1.2) 11/06/22 19:53 Abnormal lab findings: Abnormal Labs 11/06/22 11/06/22 11/06/22 19:24 19:53 19:53 WBC 16.4 H Neutrophils # Lymphocytes # (Manual) 7.87 H ABG pH ABG pCO2 ABG pO2 ABG O2 Saturation Potassium Chloride Carbon Dioxide 19 L Creatinine Glucose 135 H POC Glucose (mg/dL) 153 H Plasma Lactic Acid Brandon Calcium Troponin I Total Protein 8.4 H U Marijuana (THC) Screen 11/06/22 11/06/22 11/06/22 19:53 20:20 20:56 WBC Neutrophils # Lymphocytes # (Manual) ABG pH 7.23 L 7.26 L ABG pCO2 53 H 49 H ABG pO2 59 L* 126 H ABG O2 Saturation 87.0 L 99.1 H Potassium Chloride Carbon Dioxide Creatinine Glucose POC Glucose (mg/dL) Plasma Lactic Acid Brandon Calcium Troponin I 0.041 H* Total Protein U Marijuana (THC) Screen 11/06/22 11/06/22 11/06/22 21:51 22:00 22:00 WBC Neutrophils # Lymphocytes # (Manual) ABG pH ABG pCO2 ABG pO2 ABG O2 Saturation Potassium 3.2 L Chloride Carbon Dioxide Creatinine Glucose 272 H POC Glucose (mg/dL) 288 H Plasma Lactic Acid Brandon Calcium 7.9 L Troponin I 3.110 H* Total Protein U Marijuana (THC) Screen 11/06/22 11/07/22 11/07/22 23:00 00:05 00:51 WBC Neutrophils # Lymphocytes # (Manual) ABG pH ABG pCO2 ABG pO2 396 H ABG O2 Saturation 100.0 H Potassium Chloride Carbon Dioxide Creatinine Glucose POC Glucose (mg/dL) 190 H Plasma Lactic Acid Brandon Calcium Troponin I Total Protein U Marijuana (THC) Screen Detected H 11/07/22 11/07/22 11/07/22 00:57 00:57 03:18 WBC Neutrophils # Lymphocytes # (Manual) ABG pH ABG pCO2 ABG pO2 ABG O2 Saturation Potassium 5.6 H Chloride Carbon Dioxide Creatinine Glucose POC Glucose (mg/dL) 178 H Plasma Lactic Acid Brandon Calcium Troponin I 12.600 H* Total Protein U Marijuana (THC) Screen 11/07/22 11/07/22 11/07/22 04:19 04:19 04:19 WBC 17.6 H Neutrophils # 14.0 H Lymphocytes # (Manual) ABG pH ABG pCO2 ABG pO2 ABG O2 Saturation Potassium Chloride 108 H Carbon Dioxide Creatinine 1.36 H Glucose 199 H POC Glucose (mg/dL) Plasma Lactic Acid Brandon 3.2 H* Calcium Troponin I Total Protein U Marijuana (THC) Screen 11/07/22 11/07/22 05:09 07:14 WBC Neutrophils # Lymphocytes # (Manual) ABG pH ABG pCO2 ABG pO2 ABG O2 Saturation Potassium Chloride Carbon Dioxide Creatinine Glucose POC Glucose (mg/dL) 182 H Plasma Lactic Acid Brandon 3.1 H* Calcium Troponin I Total Protein U Marijuana (THC) Screen - Diagnostic Findings Chest x-ray: image reviewed Assessment and Plan Plan: Acute cardiac arrest/ventricular fibrillation, post defibrillation/post successful cardiac resuscitation. This was related to an acute ST segment elevation myocardial infarction. Acute STEMI related to occlusion of the LAD post cardiac catheterization and stenting of LAD Recurrent ventricular fibrillation, current cardiac rhythm is sinus and the patient is on amiodarone Acute hypoxic/hypercapnic respiratory failure post cardiac arrest, currently intubated on a mechanical ventilator. Increased interstitial markings and pulmonary edema, cardiogenic in nature Obesity Diabetes mellitus Hypotension post cardiac arrest, likely cardiac in nature and the patient also had a lower left posterior end-diastolic pressure and the patient was given IV fluids, responded nicely and the patient is currently on minimal dose of norepinephrine running at 0.06 mcg/kg/m Chronic smoker Marijuana use Electrolyte imbalance with mild hypokalemia, replaced. Plan Hemodynamically the patient is doing well. Chest x-ray from this morning showing a small effusion/atelectatic changes in the left lung base. Endotracheal tube is in a good location Continue ventilator support for now and dropped FiO2 down to 50% and dropped the PEEP down to 5 Discontinue the propofol or wean off the propofol and assess the patient's menta l status and check weaning parameters and assess readiness and candidacy for further weaning Continue IV amiodarone loading Continue aspirin and Effient for now Wean off norepinephrine and the patient is currently down to 0.06 mcg/kg/m High-dose statins with Lipitor 80 mg by mouth on a daily basis Restart metoprolol once the patient's blood pressure is further stabilized Will need an echocardiogram Troponin peaked at 12. We'll watch for any signs of anoxic encephalopathy. I believe that the pat dwayne's cardiac arrest Was rather brief Condition is critical and we'll continue to follow make further recommendations based on his progress.
--- NOTE | 2022-11-07 09:26 | P.PN ---
Subjective Progress Note Date: 11/07/22 PROGRESS NOTE The patient is a 52-year-old male who presented with chest discomfort, recurrent ventricle fibrillation, requiring multiple cardioversion, respiratory failure and cardiac arrest, he underwent cardiac catheterization and was found to have acutely occluded LAD and underwent stenting of that vessel. He remains intubated and sedated. According to the nursing staff when his sedation with decreased he was following commands. He is on a low dose of norepinephrine. He continues to be in sinus mechanism but he has short burst of VT but no sustained ventricular tachycardia or fibrillation. He has good urinary output. He continues to be on IV amiodarone. There is no episodes of atrial fibrillation. His oxygenation is better. He required large amount of fluid yesterday. He's feeling pressure was low Medications: Metoprolol 25 mg twice a day, insulin, Lipitor 80 mg daily, IV amiodarone, Effient, norepinephrine being weaned off PHYSICAL EXAMINATION: 52-year-old male, intubated and sedated Blood pressure 111/79 heart rate 70 LUNGS: Clear to auscultation HEART: Regular rate and rhythm, S1, S2. No S3. No systolic murmur ABDOMEN: Soft, obese, no organomegaly, positive bowel sounds EXTREMETIES: No edema, intact right radial LAB: BUN 12, creatinine 1.36, hemoglobin 15.1. Troponin peak of 12.6, WBC 17.6, hemoglobin 15.1. PH 7.35, pCO2 40 and pO2 of 396. EKG shows sinus mechanism with QS in V1 to V3 consistent with anterior wall myocardial infarction. Chest x-ray this morning with no infiltrate and mild congestion. IMPRESSION: 1. Status post acute anterior wall myocardial infarction with stenting of the LAD 2. Recurrent ventricular fibrillation, stabilizing on IV amiodarone and beta jono 3. Respiratory failure post cardiac arrest 4. History of chronic tobacco use 5. History of diabetes PLAN: 1. Attempt to wean if neurologically stable 2. Wean norepinephrine 3. Obtain an echocardiogram with Doppler 4. Continue beta jono 5. Depending on his progress further recommendations will be made, prognosis remains guarded. Objective - Vital Signs Vital signs: Vital Signs Temp 98.9 F 11/07/22 04:00 Pulse 71 11/07/22 07:00 Resp 26 H 11/07/22 07:00 BP 111/79 11/07/22 07:00 Pulse Ox 100 11/07/22 04:10 FiO2 60 11/07/22 08:02 Intake & Output 11/06/22 11/07/22 11/07/22 17:59 06:59 18:59 Intake Total 452.852 Output Total 180 Balance 272.852 Weight Intake: IV 300 Sodium Chloride 0.9% 1, 300 000 ml In Empty Bag 1 bag @ 100 mls/hr IV .Q10H [facility] Rx#:[id number] Intake, IV Titration 152.852 Amount Norepinephrine 4 mg In 105.217 Sodium Chloride 0.9% 250 ml @ 0.03 MCG/KG/MIN 18. 089 mls/hr IV .Q14H3M [facility] Rx#:[id number] propofoL 1,000 mg In 47.635 Empty Bag 1 bag @ 15 MCG/ KG/MIN 14.243 mls/hr IV . Q7H2M [facility] Rx#:[id number] Output: Urine 180 - Labs CBC & Chem 7: 11/07/22 04:19 11/07/22 04:19 Labs: Abnormal Lab Results - Last 24 Hours (Table) 11/06/22 11/06/22 11/06/22 Range/Units 19:24 19:53 19:53 WBC 16.4 H (3.8-10.6) k/uL Neutrophils # (1.3-7.7) k/uL Lymphocytes # (Manual) 7.87 H (1.0-4.8) k/uL ABG pH (7.35-7.45) ABG pCO2 (35-45) mmHg ABG pO2 (83-108) mmHg ABG O2 Saturation (94-97) % Potassium (3.5-5.1) mmol/L Chloride (98-107) mmol/L Carbon Dioxide 19 L (22-30) mmol/L Creatinine (0.66-1.25) mg/dL Glucose 135 H (74-99) mg/dL POC Glucose (mg/dL) 153 H (70-110) mg/dL Plasma Lactic Acid Brandon (0.7-2.0) mmol/L Calcium (8.4-10.2) mg/dL Troponin I (0.000-0.034) ng/mL Total Protein 8.4 H (6.3-8.2) g/dL U Marijuana (THC) Screen (NotDetected) 0311/06/22 11/06/22 Range/Units 19:53 20:20 20:56 WBC (3.8-10.6) k/uL Neutrophils # (1.3-7.7) k/uL Lymphocytes # (Manual) (1.0-4.8) k/uL ABG pH 7.23 L 7.26 L (7.35-7.45) ABG pCO2 53 H 49 H (35-45) mmHg ABG pO2 59 L* 126 H (83-108) mmHg ABG O2 Saturation 87.0 L 99.1 H (94-97) % Potassium (3.5-5.1) mmol/L Chloride (98-107) mmol/L Carbon Dioxide (22-30) mmol/L Creatinine (0.66-1.25) mg/dL Glucose (74-99) mg/dL POC Glucose (mg/dL) (70-110) mg/dL Plasma Lactic Acid Brandon (0.7-2.0) mmol/L Calcium (8.4-10.2) mg/dL Troponin I 0.041 H* (0.000-0.034) ng/mL Total Protein (6.3-8.2) g/dL U Marijuana (THC) Screen (NotDetected) 11/06/22 11/06/22 11/06/22 Range/Units 21:51 22:00 22:00 WBC (3.8-10.6) k/uL Neutrophils # (1.3-7.7) k/uL Lymphocytes # (Manual) (1.0-4.8) k/uL ABG pH (7.35-7.45) ABG pCO2 (35-45) mmHg ABG pO2 (83-108) mmHg ABG O2 Saturation (94-97) % Potassium 3.2 L (3.5-5.1) mmol/L Chloride (98-107) mmol/L Carbon Dioxide (22-30) mmol/L Creatinine (0.66-1.25) mg/dL Glucose 272 H (74-99) mg/dL POC Glucose (mg/dL) 288 H (70-110) mg/dL Plasma Lactic Acid Brandon (0.7-2.0) mmol/L Calcium 7.9 L (8.4-10.2) mg/dL Troponin I 3.110 H* (0.000-0.034) ng/mL Total Protein (6.3-8.2) g/dL U Marijuana (THC) Screen (NotDetected) 11/06/22 11/07/22 11/07/22 Range/Units 23:00 00:05 00:51 WBC (3.8-10.6) k/uL Neutrophils # (1.3-7.7) k/uL Lymphocytes # (Manual) (1.0-4.8) k/uL ABG pH (7.35-7.45) ABG pCO2 (35-45) mmHg ABG pO2 396 H (83-108) mmHg ABG O2 Saturation 100.0 H (94-97) % Potassium (3.5-5.1) mmol/L Chloride (98-107) mmol/L Carbon Dioxide (22-30) mmol/L Creatinine (0.66-1.25) mg/dL Glucose (74-99) mg/dL POC Glucose (mg/dL) 190 H (70-110) mg/dL Plasma Lactic Acid Brandon (0.7-2.0) mmol/L Calcium (8.4-10.2) mg/dL Troponin I (0.000-0.034) ng/mL Total Protein (6.3-8.2) g/dL U Marijuana (THC) Screen Detected H (NotDetected) 11/07/22 11/07/22 11/07/22 Range/Units 00:57 00:57 03:18 WBC (3.8-10.6) k/uL Neutrophils # (1.3-7.7) k/uL Lymphocytes # (Manual) (1.0-4.8) k/uL ABG pH (7.35-7.45) ABG pCO2 (35-45) mmHg ABG pO2 (83-108) mmHg ABG O2 Saturation (94-97) % Potassium 5.6 H (3.5-5.1) mmol/L Chloride (98-107) mmol/L Carbon Dioxide (22-30) mmol/L Creatinine (0.66-1.25) mg/dL Glucose (74-99) mg/dL POC Glucose (mg/dL) 178 H (70-110) mg/dL Plasma Lactic Acid Brandon (0.7-2.0) mmol/L Calcium (8.4-10.2) mg/dL Troponin I 12.600 H* (0.000-0.034) ng/mL Total Protein (6.3-8.2) g/dL U Marijuana (THC) Screen (NotDetected) 11/07/22 11/07/22 11/07/22 Range/Units 04:19 04:19 04:19 WBC 17.6 H (3.8-10.6) k/uL Neutrophils # 14.0 H (1.3-7.7) k/uL Lymphocytes # (Manual) (1.0-4.8) k/uL ABG pH (7.35-7.45) ABG pCO2 (35-45) mmHg ABG pO2 (83-108) mmHg ABG O2 Saturation (94-97) % Potassium (3.5-5.1) mmol/L Chloride 108 H (98-107) mmol/L Carbon Dioxide (22-30) mmol/L Creatinine 1.36 H (0.66-1.25) mg/dL Glucose 199 H (74-99) mg/dL POC Glucose (mg/dL) (70-110) mg/dL Plasma Lactic Acid Brandon 3.2 H* (0.7-2.0) mmol/L Calcium (8.4-10.2) mg/dL Troponin I (0.000-0.034) ng/mL Total Protein (6.3-8.2) g/dL U Marijuana (THC) Screen (NotDetected) 11/07/22 11/07/22 Range/Units 05:09 07:14 WBC (3.8-10.6) k/uL Neutrophils # (1.3-7.7) k/uL Lymphocytes # (Manual) (1.0-4.8) k/uL ABG pH (7.35-7.45) ABG pCO2 (35-45) mmHg ABG pO2 (83-108) mmHg ABG O2 Saturation (94-97) % Potassium (3.5-5.1) mmol/L Chloride (98-107) mmol/L Carbon Dioxide (22-30) mmol/L Creatinine (0.66-1.25) mg/dL Glucose (74-99) mg/dL POC Glucose (mg/dL) 182 H (70-110) mg/dL Plasma Lactic Acid Brandon 3.1 H* (0.7-2.0) mmol/L Calcium (8.4-10.2) mg/dL Troponin I (0.000-0.034) ng/mL Total Protein (6.3-8.2) g/dL U Marijuana (THC) Screen (NotDetected)
[2022-11-07] MEDS: PRASUGREL 10 MG TAB PO SCH (09:27)
[2022-11-07] MEDS: CHLORHEXIDINE GLUCONATE 15 ML CUP MUCOUS MEM SCH ×2 (09:27→20:01)
--- NOTE | 2022-11-07 09:41 | XR ---
EXAMINATION TYPE: XR chest 1V DATE OF EXAM: 11/07/2022 9:26 AM COMPARISON: 11/06/2022 TECHNIQUE: XR chest 1V Portable AP radiograph of the chest. CLINICAL INDICATION:Male, 52 years old with history of vent management; FINDINGS: Lungs/Pleura: There is no evidence of pleural effusion, focal consolidation, or pneumothorax. Pulmonary vascularity: Unremarkable. Heart/mediastinum: Cardiomediastinal silhouette is unremarkable. Musculoskeletal: No acute osseous pathology. Other findings: None Lines/Tubes: Endotracheal tube with distal tip 7.4 cm above the mica. Nasogastric tube with its distal tip and side-port projecting under the diaphragm. IMPRESSION: Support tubes in satisfactory position. Bibasilar atelectasis.
[2022-11-07 12:18] LABS: Chol/HDL Ratio 4.45 Ratio; LDL Cholesterol,Calculated 128.9 mg/dL (0.0-131.0)
[2022-11-07 12:23] LABS: Glucose,Whole Blood 112 mg/dL (70-110)
--- NOTE | 2022-11-07 12:29 | P.PN ---
Subjective Progress Note Date: 11/07/22 Hospital Course: 52-year-old male with a PMH of type II DM who was brought into the emergency room by EMS for cardiac arrest. The patient had reportedly had an episode of chest discomfort at home where he had activated EMS. The patient was reportedly thengiven aspirin by his neighbors and upon EMS arrival, he was ambulatory and was given sublingual nitroglycerin. Initial EKG was obtained which revealed ST elevations in leads V2 and V3. The patient subsequently became unresponsive and developed V. fib arrest. The patient was reportedly shocked 4 times by EMS. After arrival at the emergency room, the patient was noted to be in arrest and CPR was again initiated with initial rhythm being V. fib. The patient underwent another defibrillation with subsequent wide complex rhythm. He was intubated and was taken to the laborer wrecking and salvaging which revealed an acutely occluded proximal LAD w hich was subsequently stented. Currently patient is intubated and sedated, on norepinephrine. Subjective: Patient seen and examined at bedside. No acute events overnight. Currently patient is intubated and sedated. Has a Moran catheter in place. Remains on propofol and norepinephrine. Also on amiodarone drip. Pertinent positives and negatives as discussed above, a complete review of syste ms was performed and all other systems are negative. Vitals Signs Reviewed. General: Intubated and sedated Derm: warm, dry Head: atraumatic, normocephalic, symmetric Eyes: Pupils equal and reactive, anicteric sclera Mouth: no lip lesion, mucus membranes moist Cardiovascular: S1S2 reg, no murmur Lungs: CTA bilateral, no rhonchi, no rales , intubated Abdominal: soft, nontender to palpation, no guarding, no appreciable organomegaly Ext: Cold extremities Neuro: Sedated Psych: Unable to assess Data Reviewed Today: Pertinent Labs: WBC 17.6, hemoglobin 15.1, sodium 145, potassium 4.2, chloride 108, bicarb 22, creatinine 1.36, glucose 199, lactic acid 2.5 Imaging: Chest x-ray independently interpreted, ET tube and NG tube in place, bibasilar opacities Assessment and Plan: Patient is currently in critical condition, remains intubated, sedated, on pressors. Prognosis very guarded. Active: Status post ST elevation [place], and LAD stent Status post V. fib arrest Ventilator dependent respiratory failure Cardiogenic shock, likely Oliguric, acute kidney injury Lactic acidosis Leukocytosis Type 2 diabetes -Cardiology note reviewed: Wean norepinephrine, echocardiogram pending -Business Liaison Officer note reviewed: FiO2 decreased to 50%, PEEP decreased to 5, continue weaning propofol, wean pressors -Catheterization report reviewed: Proximal LAD was acutely occluded dry percent, successful stenting. The left ventricular end-diastolic pressure. -On amiodarone drip 0.5, aspirin 81 mg, atorvastatin 80 mg,, Lopressor 25 mg twice a day, effient 10 mg -Continue to monitor urine output, BMP tomorrow -Lactic acid improving, while patient is on pressors -Leukocytosis likely reactive in the setting of [place] -Reassess mental status once off of propofol -CT had ordered -Add DVT prophylaxis once CT head has resulted -Blood sugars around 180s, continue sliding scale every 6 hours Code status: Full code Anticipated discharge place: Pending clinical course Anticipated discharge time: Pending clinical course Objective - Vital Signs Vital signs: Vital Signs Temp 97.7 F 11/07/22 08:00 Pulse 68 11/07/22 12:21 Resp 26 H 11/07/22 11:00 BP 108/70 11/07/22 11:00 Pulse Ox 94 L 11/07/22 11:20 FiO2 50 11/07/22 10:45 Intake & Output 11/06/22 11/07/22 11/07/22 17:59 06:59 18:59 Intake Total 778.486 Output Total 300 Balance 478.486 Weight Intake: IV 500 Sodium Chloride 0.9% 1, 500 000 ml In Empty Bag 1 bag @ 100 mls/hr IV .Q10H [facility] Rx#:[id number] Intake, IV Titration 278.486 Amount Norepinephrine 4 mg In 186.618 Sodium Chloride 0.9% 250 ml @ 0.03 MCG/KG/MIN 18. 089 mls/hr IV .Q14H3M [facility] Rx#:[id number] propofoL 1,000 mg In 91.868 Empty Bag 1 bag @ 15 MCG/ KG/MIN 14.243 mls/hr IV . Q7H2M [facility] Rx#:[id number] Output: Urine 300 Other: Voiding Method Indwelling Catheter - Labs CBC & Chem 7: 11/07/22 04:19 11/07/22 04:19 Labs: Abnormal Lab Results - Last 24 Hours (Table) 11/06/22 11/06/22 11/06/22 Range/Units 19:24 19:53 19:53 WBC 16.4 H (3.8-10.6) k/uL Neutrophils # (1.3-7.7) k/uL Lymphocytes # (Manual) 7.87 H (1.0-4.8) k/uL ABG pH (7.35-7.45) ABG pCO2 (35-45) mmHg ABG pO2 (83-108) mmHg ABG O2 Saturation (94-97) % Potassium (3.5-5.1) mmol/L Chloride (98-107) mmol/L Carbon Dioxide 19 L (22-30) mmol/L Creatinine (0.66-1.25) mg/dL Glucose 135 H (74-99) mg/dL POC Glucose (mg/dL) 153 H (70-110) mg/dL Plasma Lactic Acid Brandon (0.7-2.0) mmol/L Calcium (8.4-10.2) mg/dL Troponin I (0.000-0.034) ng/mL Total Protein 8.4 H (6.3-8.2) g/dL Triglycerides (0.00-149.00) mg/dL Cholesterol (0.00-200.00) mg/dL U Marijuana (THC) Screen (NotDetected) 11/06/22 11/06/22 11/06/22 Range/Units 19:53 20:20 20:56 WBC (3.8-10.6) k/uL Neutrophils # (1.3-7.7) k/uL Lymphocytes # (Manual) (1.0-4.8) k/uL ABG pH 7.23 L 7.26 L (7.35-7.45) ABG pCO2 53 H 49 H (35-45) mmHg ABG pO2 59 L* 126 H (83-108) mmHg ABG O2 Saturation 87.0 L 99.1 H (94-97) % Potassium (3.5-5.1) mmol/L Chloride (98-107) mmol/L Carbon Dioxide (22-30) mmol/L Creatinine (0.66-1.25) mg/dL Glucose (74-99) mg/dL POC Glucose (mg/dL) (70-110) mg/dL Plasma Lactic Acid Brandon (0.7-2.0) mmol/L Calcium (8.4-10.2) mg/dL Troponin I 0.041 H* (0.000-0.034) ng/mL Total Protein (6.3-8.2) g/dL Triglycerides (0.00-149.00) mg/dL Cholesterol (0.00-200.00) mg/dL U Marijuana (THC) Screen (NotDetected) 11/06/22 11/06/22 11/06/22 Range/Units 21:51 22:00 22:00 WBC (3.8-10.6) k/uL Neutrophils # (1.3-7.7) k/uL Lymphocytes # (Manual) (1.0-4.8) k/uL ABG pH (7.35-7.45) ABG pCO2 (35-45) mmHg ABG pO2 (83-108) mmHg ABG O2 Saturation (94-97) % Potassium (3.5-5.1) mmol/L Chloride (98-107) mmol/L Carbon Dioxide (22-30) mmol/L Creatinine (0.66-1.25) mg/dL Glucose (74-99) mg/dL POC Glucose (mg/dL) 288 H (70-110) mg/dL Plasma Lactic Acid Brandon (0.7-2.0) mmol/L Calcium (8.4-10.2) mg/dL Troponin I 3.110 H* (0.000-0.034) ng/mL Total Protein (6.3-8.2) g/dL Triglycerides 150.00 H (0.00-149.00) mg/dL Cholesterol 205.00 H (0.00-200.00) mg/dL U Marijuana (THC) Screen (NotDetected) 11/06/22 11/06/22 11/07/22 Range/Units 22:00 23:00 00:05 WBC (3.8-10.6) k/uL Neutrophils # (1.3-7.7) k/uL Lymphocytes # (Manual) (1.0-4.8) k/uL ABG pH (7.35-7.45) ABG pCO2 (35-45) mmHg ABG pO2 396 H (83-108) mmHg ABG O2 Saturation 100.0 H (94-97) % Potassium 3.2 L (3.5-5.1) mmol/L Chloride (98-107) mmol/L Carbon Dioxide (22-30) mmol/L Creatinine (0.66-1.25) mg/dL Glucose 272 H (74-99) mg/dL POC Glucose (mg/dL) (70-110) mg/dL Plasma Lactic Acid Brandon (0.7-2.0) mmol/L Calcium 7.9 L (8.4-10.2) mg/dL Troponin I (0.000-0.034) ng/mL Total Protein (6.3-8.2) g/dL Triglycerides (0.00-149.00) mg/dL Cholesterol (0.00-200.00) mg/dL U Marijuana (THC) Screen Detected H (NotDetected) 11/07/22 11/07/22 11/07/22 Range/Units 00:51 00:57 00:57 WBC (3.8-10.6) k/uL Neutrophils # (1.3-7.7) k/uL Lymphocytes # (Manual) (1.0-4.8) k/uL ABG pH (7.35-7.45) ABG pCO2 (35-45) mmHg ABG pO2 (83-108) mmHg ABG O2 Saturation (94-97) % Potassium 5.6 H (3.5-5.1) mmol/L Chloride (98-107) mmol/L Carbon Dioxide (22-30) mmol/L Creatinine (0.66-1.25) mg/dL Glucose (74-99) mg/dL POC Glucose (mg/dL) 190 H (70-110) mg/dL Plasma Lactic Acid Brandon (0.7-2.0) mmol/L Calcium (8.4-10.2) mg/dL Troponin I 12.600 H* (0.000-0.034) ng/mL Total Protein (6.3-8.2) g/dL Triglycerides (0.00-149.00) mg/dL Cholesterol (0.00-200.00) mg/dL U Marijuana (THC) Screen (NotDetected) 11/07/22 11/07/22 11/07/22 Range/Units 03:18 04:19 04:19 WBC (3.8-10.6) k/uL Neutrophils # (1.3-7.7) k/uL Lymphocytes # (Manual) (1.0-4.8) k/uL ABG pH (7.35-7.45) ABG pCO2 (35-45) mmHg ABG pO2 (83-108) mmHg ABG O2 Saturation (94-97) % Potassium (3.5-5.1) mmol/L Chloride 108 H (98-107) mmol/L Carbon Dioxide (22-30) mmol/L Creatinine 1.36 H (0.66-1.25) mg/dL Glucose 199 H (74-99) mg/dL POC Glucose (mg/dL) 178 H (70-110) mg/dL Plasma Lactic Acid Brandon 3.2 H* (0.7-2.0) mmol/L Calcium (8.4-10.2) mg/dL Troponin I (0.000-0.034) ng/mL Total Protein (6.3-8.2) g/dL Triglycerides (0.00-149.00) mg/dL Cholesterol (0.00-200.00) mg/dL U Marijuana (THC) Screen (NotDetected) 11/07/22 11/07/22 11/07/22 Range/Units 04:19 05:09 07:14 WBC 17.6 H (3.8-10.6) k/uL Neutrophils # 14.0 H (1.3-7.7) k/uL Lymphocytes # (Manual) (1.0-4.8) k/uL ABG pH (7.35-7.45) ABG pCO2 (35-45) mmHg ABG pO2 (83-108) mmHg ABG O2 Saturation (94-97) % Potassium (3.5-5.1) mmol/L Chloride (98-107) mmol/L Carbon Dioxide (22-30) mmol/L Creatinine (0.66-1.25) mg/dL Glucose (74-99) mg/dL POC Glucose (mg/dL) 182 H (70-110) mg/dL Plasma Lactic Acid Brandon 3.1 H* (0.7-2.0) mmol/L Calcium (8.4-10.2) mg/dL Troponin I (0.000-0.034) ng/mL Total Protein (6.3-8.2) g/dL Triglycerides (0.00-149.00) mg/dL Cholesterol (0.00-200.00) mg/dL U Marijuana (THC) Screen (NotDetected) 11/07/22 11/07/22 Range/Units 10:33 12:22 WBC (3.8-10.6) k/uL Neutrophils # (1.3-7.7) k/uL Lymphocytes # (Manual) (1.0-4.8) k/uL ABG pH (7.35-7.45) ABG pCO2 (35-45) mmHg ABG pO2 (83-108) mmHg ABG O2 Saturation (94-97) % Potassium (3.5-5.1) mmol/L Chloride (98-107) mmol/L Carbon Dioxide (22-30) mmol/L Creatinine (0.66-1.25) mg/dL Glucose (74-99) mg/dL POC Glucose (mg/dL) 112 H (70-110) mg/dL Plasma Lactic Acid Brandon 2.5 H* (0.7-2.0) mmol/L Calcium (8.4-10.2) mg/dL Troponin I (0.000-0.034) ng/mL Total Protein (6.3-8.2) g/dL Triglycerides (0.00-149.00) mg/dL Cholesterol (0.00-200.00) mg/dL U Marijuana (THC) Screen (NotDetected) Microbiology - Last 24 Hours (Table) 11/06/22 22:05 Sputum Culture - Preliminary Sputum
--- NOTE | 2022-11-07 13:54 | CA ---
Transthoracic Echo Report Name: Xavier Huber Age: 52 Gender: M : 1970 Exam Date: 11/07/2022 09:38 Exam Location: [place] [facility] Ht (in): 67 Wt (lb): 348 Ordering Physician: Jonn Anaya MD ([id number]) Attending/Referring Phys: Police Magistrate Cookie Cid RDCS Procedure CPT: Indications: [place] Cardiac Hx: Technical Quality: Technically difficult study Contrast 1: Lumason Total Dose (mL): 5 Contrast 2: Total Dose (mL): MEASUREMENTS (Male / Female) Normal Values 2D ECHO LV Diastolic Diameter PLAX 5.0 cm 4.2 - 5.9 / 3.9 - 5.3 cm LV Systolic Diameter PLAX 3.9 cm IVS Diastolic Thickness 1.5 cm 0.6 - 1.0 / 0.6 - 0.9 cm LVPW Diastolic Thickness 1.5 cm 0.6 - 1.0 / 0.6 - 0.9 cm LV Relative Wall Thickness 0.6 LA Volume 80.5 cm??? 18 - 58 / 22 - 52 cm??? M-MODE Aortic Root Diameter MM 3.8 cm LA Systolic Diameter MM 4.0 cm LA Ao Ratio MM 1.1 AV Cusp Separation MM 2.3 cm DOPPLER AV Peak Velocity 121.8 cm/s AV Peak Gradient 5.9 mmHg AV Mean Velocity 86.3 cm/s AV Mean Gradient 3.3 mmHg AV Velocity Time Integral 23.0 cm LVOT Peak Velocity 110.3 cm/s LVOT Peak Gradient 4.9 mmHg LVOT Velocity Time Integral 20.7 cm MV Area PHT 2.7 cm??? Mitral E Point Velocity 60.2 cm/s Mitral A Point Velocity 74.8 cm/s Mitral E to A Ratio 0.8 MV Deceleration Time 277.9 ms MV E' Velocity 5.7 cm/s Mitral E to MV E' Ratio 10.6 FINDINGS Left Ventricle Moderately increased left ventricular wall thickness. Left ventricular cavity size normal. Anteroapical and anteroseptal severe hypokinesis, estimated ejection fraction 30-35%. Right Ventricle Right ventricle not well visualized. Right Atrium Right atrium not well visualized. Left Atrium Severely increased left atrial volume. Mitral Valve Structurally normal mitral valve. Jbnv-bk-vudensnd mitral regurgitation. Aortic Valve No aortic valve stenosis or regurgitation. Tricuspid Valve Structurally normal tricuspid valve. Trace to mild tricuspid regurgitation. Pulmonic Valve Pulmonic valve not well visualized. Pericardium No pericardial effusion. Aorta Normal size aortic root and proximal ascending aorta. CONCLUSIONS Lumason ECHO contrast used for improved visualization of the endocardial borders (inadequate visualization of two or more contiguous segments). Severely impaired left ventricle systolic function with segmental wall motion abnormality consistent with coronary artery disease Mild to moderate mitral with mild tricuspid regurgitation. Previewed by: Dr. Jonn Anaya MD (Electronically Signed) Final Date: 07 November 2022 13:53
[2022-11-07] MEDS: SODIUM CHLORIDE 0.9% 1,000 ML in EMPTY BAG 1 BAG IV SCH ×2 (17:10→19:36)
[2022-11-07] MEDS: HEPARIN SODIUM,PORCINE/PF 5,000 UNIT/0.5 ML SYRINGE SQ SCH ×2 (17:11→23:00)
[2022-11-07] MEDS: ACETAMINOPHEN TAB 325 MG TAB PO PRN (17:55)
[2022-11-07 19:52] LABS: Glucose,Whole Blood 152 mg/dL (70-110)
[2022-11-07 19:58] LABS: Glucose,Whole Blood 151 mg/dL (70-110)
[2022-11-07] MEDS: ATORVASTATIN 80 MG TAB PO SCH (20:04)
[2022-11-07] MEDS ORDERED: ALBUTEROL NEBULIZED 2.5 MG/3 ML INHALATION PRN (20:46)
[2022-11-07 21:46] LABS: HCT 44.9 % (39.0-53.0); HGB 14.5 gm/dL (13.0-17.5); MCH 30.2 pg (25.0-35.0); MCHC 32.2 g/dL (31.0-37.0); MCV 93.8 fL (80.0-100.0); Mean Platelet Volume 7.4; Platelet Count 227 k/uL (150-450); RBC 4.79 m/uL (4.30-5.90); RDW 13.1 % (11.5-15.5); WBC 18.8 k/uL (3.8-10.6)
[2022-11-08] MEDS: ACETAMINOPHEN TAB 325 MG TAB PO PRN (00:03)
[2022-11-08] MEDS: SODIUM CHLORIDE 0.9% 80 ML with fentaNYL (PF) 1,000 MCG IV SCH ×2 (00:24)
[2022-11-08] MEDS: SODIUM CHLORIDE 0.9% 1,000 ML in EMPTY BAG 1 BAG IV SCH (03:16)
[2022-11-08 05:11] LABS: African American GFR (CKD) >90 (>60 ml/min/1.73 sqM); Anion Gap 8 mmol/L; Blood Urea Nitrogen 9 mg/dL (9-20); Calcium 8.6 mg/dL (8.4-10.2); Carbon Dioxide 23 mmol/L (22-30); Chloride 112 mmol/L (98-107); Glucose 139 mg/dL (74-99); Non-African American GFR(CKD) 85 (>60 ml/min/1.73 sqM); Potassium 3.8 mmol/L (3.5-5.1); Sodium 143 mmol/L (137-145)
[2022-11-08 06:05] LABS: Glucose,Whole Blood 130 mg/dL (70-110)
[2022-11-08] MEDS ORDERED: MAGNESIUM SULFATE-D5W PMX 1 GM in DEXTROSE/WATER 1 100ML.BAG IVPB ONE (06:27)
[2022-11-08] MEDS: INSULIN ASPART (NovoLOG) 100 UNIT/ML VIAL SQ SCH ×4 (06:49→21:09)
[2022-11-08] MEDS ORDERED: POTASSIUM CHLORIDE ER 20 MEQ TAB.ER PO SCH (07:00)
--- NOTE | 2022-11-08 07:39 | XR ---
EXAMINATION TYPE: XR chest 1V portable DATE OF EXAM: 11/08/2022 6:23 AM COMPARISON: Chest radiographs from 11/07/2022 TECHNIQUE: XR chest 1V portable Portable AP radiograph of the chest. CLINICAL INDICATION:Male, 52 years old with history of Tube placement; FINDINGS: The patient is rotated which limits evaluation. Lungs/Pleura: There is no evidence of pleural effusion, focal consolidation, or pneumothorax. Mild d iffuse pulmonary edema. Heart/mediastinum: Cardiomediastinal silhouette is unremarkable. Musculoskeletal: No acute osseous pathology. Other findings: None Lines/Tubes: Interval removal of endotracheal and enteric tubes. IMPRESSION: Development of mild diffuse pulmonary edema.
[2022-11-08] MEDS: ALBUTEROL NEBULIZED 2.5 MG/3 ML INHALATION SCH ×3 (07:48→19:52)
[2022-11-08] MEDS ORDERED: POTASSIUM CHLORIDE ER 20 MEQ TAB.ER PO STA (08:42)
[2022-11-08] MEDS: HEPARIN SODIUM,PORCINE/PF 5,000 UNIT/0.5 ML SYRINGE SQ SCH ×2 (08:55→16:15)
[2022-11-08] MEDS: ASPIRIN 81 MG PO SCH (08:55)
[2022-11-08] MEDS: PRASUGREL 10 MG TAB PO SCH (08:55)
[2022-11-08] MEDS: METOPROLOL TARTRATE 25 MG TAB PO SCH ×2 (08:55→21:00)
[2022-11-08] MEDS: SPIRONOLACTONE 25 MG TAB PO SCH (08:56)
[2022-11-08] MEDS: CHLORHEXIDINE GLUCONATE 15 ML CUP MUCOUS MEM SCH ×2 (08:56→21:09)
[2022-11-08] MEDS: FUROSEMIDE 10 MG/ML 4 ML VIAL IV SCH ×2 (08:56→20:59)
[2022-11-08] MEDS ORDERED: lisinopriL 5 MG TAB PO SCH (09:00)
[2022-11-08] MEDS ORDERED: FUROSEMIDE 20 MG TAB PO SCH (09:00)
[2022-11-08 10:26] LABS: Appearance,Urine Clear (Clear); Bilirubin,Urine Negative (Negative); Blood,Urine Small (Negative); Color,Urine Colorless; Glucose,Urine (UA) Negative (Negative); Ketones,Urine Negative (Negative); Leukocyte Esterase,Urine Negative (Negative); Mucus,Urine Rare /hpf; Nitrite,Urine Negative (Negative); Protein,Urine Negative (Negative); RBC,Urine 6 /hpf (0-5); Specific Gravity,Urine 1.005 (1.001-1.035); Urobilinogen,Urine <2.0 mg/dL (<2.0); WBC,Urine 1 /hpf (0-5)
[2022-11-08] MEDS ORDERED: lisinopriL 5 MG TAB PO STA (11:19)
--- NOTE | 2022-11-08 11:30 | P.PN ---
Subjective Progress Note Date: 11/08/22 Principal diagnosis: Acute cardiac arrest/ventricular fibrillation 52-year-old -Faroese male patient, had an episode of chest pain and collapsed at home. EMS came to the scene and the patient was found to be in V. fib. The patient required defibrillation 4. He presented to the emergency department unresponsive and he went again into ventricular fibrillation. He was intubated, defibrillated, EKG showed ST segment elevation anteriorly and the patient was taken immediately to emergent cardiac catheterization and the patient was found to have acutely occluded proximal LAD. No abnormalities within the RCA or circumflex. The patient underwent successful stenting of the proximal LAD. Left ventricular end-diastolic pressure was low. The patient was brought into the intensive care unit intubated on a mechanical ventilator. He was kept on propofol. Propofol was dropping his pressure initially and we had to use some fentanyl. This morning fentanyl is often the patient is strictly on propofol at the rate of 40 mcg/kg/m. His calm and comfortable. Overnight, he became hypotensive. He was given IV fluids a total of 2 L he was also given IV albumin. His blood pressure responded. He required pressors, norepinephrine was as high as 26 mcg/m and currently is on a norepinephrine at a dose of 0.06 microvascular kilogram per minute. Urine output is adequate. He does have some diminished pulses in lower extremities, good femoral pulses for now. He had this procedure done through the right radial approach. Chest x-ray was showing some pulmonary edema. The patient has adequate oxygenation. The patient is currently on assist-control mode of mechanical ventilation at the rate of 26, tidal volume 500, FiO2 was 60% and a PEEP of 10. Blood gas shows adequate oxygenation and ventilation. The troponin peaked at 12. The patient has another episode of ventricular fibrillation immediately following the procedure. He was started on amiodarone. Currently amiodarone drip is running at 0.5 mg/m. Blood sugars were elevated and the patient was started on a sliding scale insulin coverage. Potassium was also replaced. Reevaluated today in the ICU on 11/08/2022, patient remains in the ICU, in no distress, however he continues to have intermittent episodes of diaphoresis. He is on 2 L nasal cannula. IV fluids at KVO. Has been receiving Lasix 40 mg IV push and he is also receiving Aldactone. Patient is status post stenting of LAD 2 his initial presentation was a presentation of ventricular fibrillation/cardiac arrest ejection fraction is 30-35%. Eventually the patient may require a LifeVest when time comes to discharge the patient home. Patient denies any chest pain, denies any shortness of breath, chest x-ray is showing mild interstitial edema. Basic metabolic profile is normal BUN is 9 creatinine 1.02, pro-calcitonin level is 2.04, chest x-ray is more consistent with pulmonary edema than pneumonia. Echocardiogram yesterday showed severe hypokinesis with ejection fraction of 30-35%. Objective - Vital Signs Vital signs: Vital Signs Temp 98.6 F 11/08/22 08:00 Pulse 68 11/08/22 11:00 Resp 14 11/08/22 11:00 BP 148/79 11/08/22 11:00 Pulse Ox 98 11/08/22 11:00 FiO2 2 11/08/22 06:00 Intake & Output 11/07/22 11/08/22 11/08/22 18:59 06:59 18:59 Intake Total 8942.566 6544.505 260 Output Total 0349 437 9917 Balance 168.486 677.505 -1275 Weight 154.6 kg 154.6 kg Intake: IV 1200 1300 260 Magnesium Sulfate-D5w Pmx 100 1 gm In Dextrose/Water 1 100ml.bag @ 100 mls/hr IVPB ONCE ONE Rx#: [id number] Sodium Chloride 0.9% 1, 1200 1200 260 000 ml In Empty Bag 1 bag @ 20 mls/hr IV .Q24H [facility] Rx#:[id number] Intake, IV Titration 278.486 247.505 Amount Amiodarone 450 mg In 247.505 Dextrose 5% in Water 250 ml @ 0.5 MG/MIN 16.667 mls/hr IV .Q15H [facility] Rx#: [id number] Norepinephrine 4 mg In 186.618 Sodium Chloride 0.9% 250 ml @ 0.03 MCG/KG/MIN 18. 089 mls/hr IV .Q14H3M [facility] Rx#:[id number] propofoL 1,000 mg In 91.868 Empty Bag 1 bag @ 15 MCG/ KG/MIN 14.243 mls/hr IV . Q7H2M [facility] Rx#:[id number] Output: Urine 7636 331 9980 Other: Voiding Method Indwelling Catheter Indwelling Catheter Indwelling Catheter - Exam Physical Exam: Revealed a 62-year-old -Faroese male in no distress on 2 L nasal cannula patient is noted to be a bit diaphoretic. Head: Atraumatic, normocephalic. HEENT:[Neck is supple.] [No neck masses.] [No thyromegaly.] [No JVD.] Chest: [Symmetrical chest expansion, crackles at the bases. Cardiac Exam: [Normal S1 and S2, no S3 gallop, no murmur.] Abdomen: [Soft, nontender, no megaly, no rebound, no guarding, normal bowel sounds.] Extremities: [No clubbing, no edema, no cyanosis.] Good pulses bilaterally. Neurological Exam: Alert and oriented 3. [No focal neurologic deficit.] Psychiatric: Normal mood, affect and normal mental status examination. Skin: No rashes. - Labs CBC & Chem 7: 11/07/22 21:21 11/08/22 04:35 Labs: Abnormal Lab Results - Last 24 Hours (Table) 11/06/22 11/07/22 11/07/22 Range/Units 22:00 04:19 12:22 WBC (3.8-10.6) k/uL Chloride (98-107) mmol/L Glucose (74-99) mg/dL POC Glucose (mg/dL) 112 H (70-110) mg/dL Hemoglobin A1c 6.4 H (0.0-6.0) % Triglycerides 150.00 H (0.00-149.00) mg/dL Cholesterol 205.00 H (0.00-200.00) mg/dL Procalcitonin (0.02-0.09) ng/mL Urine Blood (Negative) Urine RBC (0-5) /hpf Urine Mucus (None) /hpf 11/07/22 11/07/22 11/07/22 Range/Units 19:51 19:57 21:21 WBC 18.8 H (3.8-10.6) k/uL Chloride (98-107) mmol/L Glucose (74-99) mg/dL POC Glucose (mg/dL) 152 H 151 H (70-110) mg/dL Hemoglobin A1c (0.0-6.0) % Triglycerides (0.00-149.00) mg/dL Cholesterol (0.00-200.00) mg/dL Procalcitonin (0.02-0.09) ng/mL Urine Blood (Negative) Urine RBC (0-5) /hpf Urine Mucus (None) /hpf 11/08/22 11/08/22 11/08/22 Range/Units 04:35 06:04 07:43 WBC (3.8-10.6) k/uL Chloride 112 H (98-107) mmol/L Glucose 139 H (74-99) mg/dL POC Glucose (mg/dL) 130 H (70-110) mg/dL Hemoglobin A1c (0.0-6.0) % Triglycerides (0.00-149.00) mg/dL Cholesterol (0.00-200.00) mg/dL Procalcitonin 2.04 H (0.02-0.09) ng/mL Urine Blood (Negative) Urine RBC (0-5) /hpf Urine Mucus (None) /hpf 11/08/22 Range/Units 09:56 WBC (3.8-10.6) k/uL Chloride (98-107) mmol/L Glucose (74-99) mg/dL POC Glucose (mg/dL) (70-110) mg/dL Hemoglobin A1c (0.0-6.0) % Triglycerides (0.00-149.00) mg/dL Cholesterol (0.00-200.00) mg/dL Procalcitonin (0.02-0.09) ng/mL Urine Blood Small H (Negative) Urine RBC 6 H (0-5) /hpf Urine Mucus Rare H (None) /hpf Microbiology - Last 24 Hours (Table) 11/06/22 22:05 Gram Stain - Preliminary Sputum Sputum Culture - Preliminary Assessment and Plan Assessment: Impression: Acute cardiac arrest/ventricular fibrillation with successful cardiac resuscitation and acute ST elevation myocardial infarction requiring stenting of LAD on admission. Acute hypoxic/hypercapnic respiratory failure post cardiac arrest patient was extubated uneventfully. Acute pulmonary edema secondary to acute LV dysfunction Obesity Type 2 diabetes Tobacco dependence syndrome Ischemic cardiomyopathy and LV dysfunction Recommendation: Continue to monitor in the ICU Continue diuretics, Lasix and Aldactone, monitor electrolytes and renal status Continue incentive spirometry Continue statins and aspirin and beta blockers and effient Continue diuretics and monitor daily input and output and daily x-rays of the chest Titrate oxygen accordingly Continue GI and DVT prophylaxis We will continue to follow Time with Patient: Less than 30
[2022-11-08 11:47] LABS: Glucose,Whole Blood 153 mg/dL (70-110)
[2022-11-08] MEDS ORDERED: NITROGLYCERIN SL TABS 0.4 MG TAB SUBLINGUAL STA (13:35)
[2022-11-08] MEDS: hydrALAZINE HCL 25 MG TAB PO SCH ×2 (13:40→22:09)
--- NOTE | 2022-11-08 15:23 | P.PN ---
Subjective Progress Note Date: 11/08/22 Patient seen and examined at bedside. Patient states that he has some mild chest pain status post cardiac arrest. Patient denies shortness of breath. Patient admits diaphoresis. Patient also admits that his urethra very irritable with a pain described as a pressure. Patient further states it is very uncomfortable. Objective - Vital Signs Vital signs: Vital Signs Temp 98.6 F 11/08/22 12:00 Pulse 84 11/08/22 14:27 Resp 23 11/08/22 13:00 BP 150/102 11/08/22 13:00 Pulse Ox 96 11/08/22 13:00 FiO2 2 11/08/22 06:00 Intake & Output 11/07/22 11/08/22 11/08/22 18:59 06:59 18:59 Intake Total 2877.646 3023.505 300 Output Total 9241 342 6414 Balance 168.486 677.505 -1610 Weight 154.6 kg 154.6 kg Intake: IV 1200 1300 300 Magnesium Sulfate-D5w Pmx 100 1 gm In Dextrose/Water 1 100ml.bag @ 100 mls/hr IVPB ONCE ONE Rx#: [id number] Sodium Chloride 0.9% 1, 1200 1200 300 000 ml In Empty Bag 1 bag @ 20 mls/hr IV .Q24H [facility] Rx#:[id number] Intake, IV Titration 278.486 247.505 Amount Amiodarone 450 mg In 247.505 Dextrose 5% in Water 250 ml @ 0.5 MG/MIN 16.667 mls/hr IV .Q15H [facility] Rx#: [id number] Norepinephrine 4 mg In 186.618 Sodium Chloride 0.9% 250 ml @ 0.03 MCG/KG/MIN 18. 089 mls/hr IV .Q14H3M [facility] Rx#:[id number] propofoL 1,000 mg In 91.868 Empty Bag 1 bag @ 15 MCG/ KG/MIN 14.243 mls/hr IV . Q7H2M [facility] Rx#:[id number] Output: Urine 2015 130 9916 Other: Voiding Method Indwelling Catheter Indwelling Catheter Indwelling Catheter - Exam General: [non toxic], [mild diaphoresis], [appears at stated age] Derm: [warm], [dry] Head: [atraumatic], [normocephalic], [symmetric] Eyes: [EOMI], [no lid lag], [anicteric sclera] Mouth: [no lip lesion], [mucus membranes moist] Cardiovascular: [S1S2 reg], [no murmur], [positive posterior tibial pulse bilateral], Lungs: [CTA bilateral], [no rhonchi, no rales] , [no accessory muscle use] Abdominal: [soft], [ nontender to palpation], [no guarding], [no appreciable organomegaly] Ext: [no gross muscle atrophy], [no edema], [no contractures] Neuro: [ CN II-XI grossly intact], [no focal neuro deficits] Psych: [Alert], [oriented], [appropriate affect] - Labs CBC & Chem 7: 11/07/22 21:21 11/08/22 04:35 Labs: Abnormal Lab Results - Last 24 Hours (Table) 11/07/22 11/07/22 11/07/22 Range/Units 04:19 19:51 19:57 WBC (3.8-10.6) k/uL Chloride (98-107) mmol/L Glucose (74-99) mg/dL POC Glucose (mg/dL) 152 H 151 H (70-110) mg/dL Hemoglobin A1c 6.4 H (0.0-6.0) % Procalcitonin (0.02-0.09) ng/mL Urine Blood (Negative) Urine RBC (0-5) /hpf Urine Mucus (None) /hpf 11/07/22 11/08/22 11/08/22 Range/Units 21:21 04:35 06:04 WBC 18.8 H (3.8-10.6) k/uL Chloride 112 H (98-107) mmol/L Glucose 139 H (74-99) mg/dL POC Glucose (mg/dL) 130 H (70-110) mg/dL Hemoglobin A1c (0.0-6.0) % Procalcitonin (0.02-0.09) ng/mL Urine Blood (Negative) Urine RBC (0-5) /hpf Urine Mucus (None) /hpf 11/08/22 11/08/22 11/08/22 Range/Units 07:43 09:56 11:45 WBC (3.8-10.6) k/uL Chloride (98-107) mmol/L Glucose (74-99) mg/dL POC Glucose (mg/dL) 153 H (70-110) mg/dL Hemoglobin A1c (0.0-6.0) % Procalcitonin 2.04 H (0.02-0.09) ng/mL Urine Blood Small H (Negative) Urine RBC 6 H (0-5) /hpf Urine Mucus Rare H (None) /hpf Microbiology - Last 24 Hours (Table) 11/06/22 22:05 Gram Stain - Preliminary Sputum Sputum Culture - Preliminary Assessment and Plan Assessment: Patient is extubated. Active: urethral pain and pressure concern for UTI Status post ST elevation [place], and LAD stent Status post V. fib arrest Ventilator dependent respiratory failure Cardiogenic shock, likely Oliguric, acute kidney injury Lactic acidosis Leukocytosis Type 2 diabetes -Obtain urine culture along with blood cultures and procalcitinin level due to elevated white blood cell count place patient on IV Rocephin due to positive UA -Cardiology note reviewed: Wean norepinephrine, echocardiogram reveals an ejection fraction of 30-35%. Moderately increased left ventricular wall thickness. Left ventricular cavity size normal. Anterior apical and anteroseptal severe hypokinesis -Catheterization report reviewed: Proximal LAD was acutely occluded dry percent, successful stenting. The left ventricular end-diastolic pressure. -On amiodarone drip 0.5, aspirin 81 mg, atorvastatin 80 mg,, Lopressor 25 mg twice a day, effient 10 mg -Continue to monitor urine output -Lactic acid improving, while patient is on pressors -Leukocytosis: Panculture -Blood sugars around 180s, continue sliding scale every 6 hours Code status: Full code Anticipated discharge place: Pending clinical course Anticipated discharge time: Pending clinical course
--- NOTE | 2022-11-08 15:57 | PN ---
PROGRESS NOTE SUBJECTIVE: This is a 52-year-old obese -[place] gentleman, who has presented to the hospital with a cardiac arrest and had ventricular tachycardia, underwent PTCA and stenting of LAD, has ejection fraction in the 30% to 35% range with anteroapical hypokinesia. For the first 24 hours, he had a lot of ventricular ectopy, but now, he has no significant ectopy. His potassium is 3.8, and magnesium is 1.9. These are being supplemented modestly. He complains of shortness of breath. He feels he is more short of breath today. He has no chest discomfort. He has some chest wall discomfort. OBJECTIVE: VITAL SIGNS: Blood pressure is 150/80. Pulse rate is 70 per minute, sinus. No significant ventricular ectopy. NECK: There is JVD of 1 cm. No carotid bruit. HEART: S1 and S2 heard normally with a short systolic murmur at left sternal border. LUNGS: Reveal fine bibasilar rales. ABDOMEN: Soft. EXTREMITIES: Lower extremities reveal diminished pulses. CENTRAL NERVOUS SYSTEM: Grossly within normal limits. IMPRESSION: 1. Acute anterior myocardial infarction with cardiac arrest, status post percutaneous coronary intervention, doing better. Ventricular ectopy has resolved. 2. Probable hypertension. 3. Obesity. 4. Ejection fraction in the 30% to 35% range. RECOMMENDATIONS: I am recommending that we will switch him from p.o. to IV Lasix, supplement potassium, decrease the fluids to KVO, repeat another echo tomorrow morning. His amiodarone has already been discontinued, and he is now on Aldactone also. He is on subcutaneous heparin. Based on clinical course, we will make further recommendations. I may increase the lisinopril if his blood pressure tends to be higher. Discussed my thoughts in detail with the patient. MMODL / IJN: [id number] /
[2022-11-08 16:16] LABS: Glucose,Whole Blood 124 mg/dL (70-110)
[2022-11-08] MEDS: ATORVASTATIN 80 MG TAB PO SCH (21:00)
[2022-11-08] MEDS: lisinopriL 10 MG TAB PO SCH (21:00)
[2022-11-08 21:09] LABS: Glucose,Whole Blood 166 mg/dL (70-110)
[2022-11-09] MEDS: HEPARIN SODIUM,PORCINE/PF 5,000 UNIT/0.5 ML SYRINGE SQ SCH ×3 (00:20→16:23)
[2022-11-09] MEDS: ACETAMINOPHEN TAB 325 MG TAB PO PRN ×2 (01:59→22:25)
[2022-11-09] MEDS: SODIUM CHLORIDE 0.9% 1,000 ML in EMPTY BAG 1 BAG IV SCH (03:30)
[2022-11-09 04:23] LABS: Basophils % (A) 0 %; Eosinophils # (A) 0.2 k/uL (0-0.7); Eosinophils % (A) 1 %; HGB 13.6 gm/dL (13.0-17.5); Lymphocytes # (A) 2.2 k/uL (1.0-4.8); Lymphocytes % (A) 15 %; MCH 30.3 pg (25.0-35.0); MCHC 33.1 g/dL (31.0-37.0); MCV 91.4 fL (80.0-100.0); Mean Platelet Volume 7.2; Monocytes # (A) 0.4 k/uL (0-1.0); Monocytes % (A) 3 %; Neutrophils # (A) 11.8 k/uL (1.3-7.7); Neutrophils % (A) 80 %; Platelet Count 228 k/uL (150-450); RBC 4.48 m/uL (4.30-5.90); WBC 14.8 k/uL (3.8-10.6)
[2022-11-09 04:36] LABS: ALT 70 U/L (4-49); AST 90 U/L (17-59); African American GFR (CKD) >90 (>60 ml/min/1.73 sqM); Albumin 3.6 g/dL (3.5-5.0); Alkaline Phosphatase 50 U/L (38-126); Anion Gap 4 mmol/L; Blood Urea Nitrogen 11 mg/dL (9-20); Calcium 8.5 mg/dL (8.4-10.2); Carbon Dioxide 25 mmol/L (22-30); Chloride 109 mmol/L (98-107); Glucose 122 mg/dL (74-99); Magnesium 1.8 mg/dL (1.6-2.3); Non-African American GFR(CKD) >90 (>60 ml/min/1.73 sqM); Potassium 3.7 mmol/L (3.5-5.1); Sodium 138 mmol/L (137-145); Total Bilirubin 1.9 mg/dL (0.2-1.3); Total Protein 6.6 g/dL (6.3-8.2)
[2022-11-09] MEDS ORDERED: Magnesium Replacement Protocol 1 EACH MISC MISCELLANE PRN (04:52)
[2022-11-09] MEDS ORDERED: MAGNESIUM SULFATE-D5W PMX 1 GM in DEXTROSE/WATER 1 100ML.BAG IVPB ONE (04:52)
[2022-11-09] MEDS ORDERED: Potassium Replacement Protocol 1 EACH MISC MISCELLANE PRN (05:18)
[2022-11-09] MEDS ORDERED: POTASSIUM CHLORIDE ER 20 MEQ TAB.ER PO SCH (06:00)
[2022-11-09 06:43] LABS: Glucose,Whole Blood 113 mg/dL (70-110)
[2022-11-09] MEDS: INSULIN ASPART (NovoLOG) 100 UNIT/ML VIAL SQ SCH ×4 (06:43→22:05)
--- NOTE | 2022-11-09 07:39 | XR ---
EXAMINATION TYPE: XR chest 1V portable DATE OF EXAM: 11/09/2022 6:11 AM COMPARISON: Chest radiographs from 11/08/2022 TECHNIQUE: XR chest 1V portable Portable AP radiograph of the chest. CLINICAL INDICATION:Male, 52 years old with history of Tube placement; FINDINGS: Patient is rotated which limits evaluation. Lungs/Pleura: There is no evidence of pleural effusion, focal consolidation, or pneumothorax. Decreas ed mild diffuse pulmonary edema. Heart/mediastinum: Cardiomediastinal silhouette is unremarkable. Musculoskeletal: No acute osseous pathology. IMPRESSION: Decreased mild diffuse pulmonary edema.
[2022-11-09] MEDS: ALBUTEROL NEBULIZED 2.5 MG/3 ML INHALATION SCH ×3 (08:06→21:03)
[2022-11-09] MEDS ORDERED: POTASSIUM CHLORIDE ER 20 MEQ TAB.ER PO STA (08:45)
[2022-11-09] MEDS: METOPROLOL TARTRATE 25 MG TAB PO SCH ×2 (09:57→20:10)
[2022-11-09] MEDS: ASPIRIN 81 MG PO SCH (09:57)
[2022-11-09] MEDS: lisinopriL 10 MG TAB PO SCH ×2 (09:57→20:11)
[2022-11-09] MEDS: hydrALAZINE HCL 25 MG TAB PO SCH ×3 (09:58→22:25)
[2022-11-09] MEDS: CHLORHEXIDINE GLUCONATE 15 ML CUP MUCOUS MEM SCH (09:58)
--- NOTE | 2022-11-09 10:24 | CA ---
Transthoracic Echo Report Name: Xavier Huber Age: 52 Gender: M : 1970 Exam Date: 11/09/2022 08:03 Exam Location: [facility] Ht (in): 67 Wt (lb): 340 Ordering Physician: Didier Lewis MD ([id number]) Attending/Referring Phys: Sort Supervisor Jeni Wilson RDCS Procedure CPT: Indications: LV function Cardiac Hx: Technical Quality: Technically difficult study Contrast 1: Lumason Total Dose (mL): 3 Contrast 2: Total Dose (mL): MEASUREMENTS (Male / Female) Normal Values 2D ECHO LV Diastolic Diameter PLAX 5.6 cm 4.2 - 5.9 / 3.9 - 5.3 cm LV Systolic Diameter PLAX 4.4 cm IVS Diastolic Thickness 1.5 cm 0.6 - 1.0 / 0.6 - 0.9 cm LVPW Diastolic Thickness 1.5 cm 0.6 - 1.0 / 0.6 - 0.9 cm LV Relative Wall Thickness 0.5 LV Diastolic Volume MOD BP 137.6 cm??? 67 - 155 / 56 - 104 cm??? LV Systolic Volume MOD BP 75.7 cm??? 22 - 58 / 19 - 49 cm??? LV Ejection Fraction MOD BP 45.0 % >= 55 % LV Diastolic Volume MOD 4C 139.4 cm??? LV Systolic Volume MOD 4C 70.8 cm??? LV Ejection Fraction MOD 4C 49.2 % LV Diastolic Length 4C 7.6 cm LV Systolic Length 4C 7.9 cm LV Diastolic Volume MOD 2C 134.5 cm??? LV Systolic Volume MOD 2C 77.5 cm??? LV Ejection Fraction MOD 2C 42.4 % LV Diastolic Length 2C 7.4 cm LV Systolic Length 2C 7.2 cm LA Volume 68.5 cm??? 18 - 58 / 22 - 52 cm??? DOPPLER AV Peak Velocity 130.1 cm/s AV Peak Gradient 6.8 mmHg MV Area PHT 5.0 cm??? Mitral E Point Velocity 91.4 cm/s Mitral A Point Velocity 72.9 cm/s Mitral E to A Ratio 1.3 MV Deceleration Time 151.7 ms MV E' Velocity 9.0 cm/s Mitral E to MV E' Ratio 10.2 FINDINGS Left Ventricle Left ventricular ejection fraction is estimated at 40-45 %. Left ventricular cavity size normal. Moderate concentric left ventricular hypertrophy. Apical septum and apical inferior vasquez hypokinesis Right Ventricle Right ventricle not well visualized. Right Atrium Right atrium not well visualized. Left Atrium Mildly increased left atrial volume. Mitral Valve Mild to moderate mitral regurgitation Aortic Valve Aortic valve not well visualized. Tricuspid Valve Tricuspid valve not well visualized. Pulmonic Valve Pulmonic valve not well visualized. Pericardium Normal pericardium. No pericardial effusion. Aorta Aortic root and proximal ascending aorta not well visualized. CONCLUSIONS Impaired LV systolic function with EF between 40-45% with mid ventricle hypokinesia and apical akinesia Mild to moderate mitral regurgitation Previewed by: Dr. Jase Sandoval MD (Electronically Signed) Final Date: 09 November 2022 10:23
[2022-11-09] MEDS: PRASUGREL 10 MG TAB PO SCH (10:55)
[2022-11-09] MEDS: FUROSEMIDE 10 MG/ML 4 ML VIAL IV SCH ×2 (10:55→20:12)
[2022-11-09] MEDS: SPIRONOLACTONE 25 MG TAB PO SCH (10:55)
[2022-11-09 11:32] LABS: Glucose,Whole Blood 135 mg/dL (70-110)
--- NOTE | 2022-11-09 12:35 | P.PN ---
Subjective Progress Note Date: 11/09/22 Principal diagnosis: Acute cardiac arrest/ventricular fibrillation 52-year-old -[place] male patient, had an episode of chest pain and collapsed at home. EMS came to the scene and the patient was found to be in V. fib. The patient required defibrillation 4. He presented to the emergency department unresponsive and he went again into ventricular fibrillation. He was intubated, defibrillated, EKG showed ST segment elevation anteriorly and the patient was taken immediately to emergent cardiac catheterization and the patient was found to have acutely occluded proximal LAD. No abnormalities within the RCA or circumflex. The patient underwent successful stenting of the proximal LAD. Left ventricular end-diastolic pressure was low. The patient was brought into the intensive care unit intubated on a mechanical ventilator. He was kept on propofol. Propofol was dropping his pressure initially and we had to use some fentanyl. This morning fentanyl is often the patient is strictly on propofol at the rate of 40 mcg/kg/m. His calm and comfortable. Overnight, he became hypotensive. He was given IV fluids a total of 2 L he was also given IV albumin. His blood pressure responded. He required pressors, norepinephrine was as high as 26 mcg/m and currently is on a norepinephrine at a dose of 0.06 microvascular kilogram per minute. Urine output is adequate. He does have some diminished pulses in lower extremities, good femoral pulses for now. He had this procedure done through the right radial approach. Chest x-ray was showing some pulmonary edema. The patient has adequate oxygenation. The patient is currently on assist-control mode of mechanical ventilation at the rate of 26, tidal volume 500, FiO2 was 60% and a PEEP of 10. Blood gas shows adequate oxygenation and ventilation. The troponin peaked at 12. The patient has another episode of ventricular fibrillation immediately following the procedure. He was started on amiodarone. Currently amiodarone drip is running at 0.5 mg/m. Blood sugars were elevated and the patient was started on a sliding scale insulin coverage. Potassium was also replaced. Reevaluated today in the ICU on 11/08/2022, patient remains in the ICU, in no distress, however he continues to have intermittent episodes of diaphoresis. He is on 2 L nasal cannula. IV fluids at KVO. Has been receiving Lasix 40 mg IV push and he is also receiving Aldactone. Patient is status post stenting of LAD 2 his initial presentation was a presentation of ventricular fibrillation/cardiac arrest ejection fraction is 30-35%. Eventually the patient may require a LifeVest when time comes to discharge the patient home. Patient denies any chest pain, denies any shortness of breath, chest x-ray is showing mild interstitial edema. Basic metabolic profile is normal BUN is 9 creatinine 1.02, pro-calcitonin level is 2.04, chest x-ray is more consistent with pulmonary edema than pneumonia. Echocardiogram yesterday showed severe hypokinesis with ejection fraction of 30-35%. Patient was reevaluated today on 11/09/2022, patient remains in the ICU, room air, in no distress, patient is scheduled to have repeat echocardiogram today. His chest x-ray is showing improvement in his pulmonary edema. No further episodes of diaphoresis. His IV fluids at KVO. Patient was seen by cardiology and the plan is to transfer the patient to the cardiac floor. WBC count is 14.8 hemoglobin 13.6 electrodes are normal renal profile is normal, repeat echocardiogram this morning showed slight improvement in his LV function, e jection fraction is now 40-45%. There is also evidence of [id number] mitral regurgitation. Objective - Vital Signs Vital signs: Vital Signs Temp 99.0 F 11/09/22 09:00 Pulse 68 11/09/22 12:00 Resp 20 11/09/22 12:00 BP 137/81 11/09/22 12:00 Pulse Ox 96 11/09/22 12:00 FiO2 2 11/08/22 06:00 Intake & Output 11/08/22 11/09/22 11/09/22 18:59 06:59 18:59 Intake Total 400 340 90 Output Total 2445 1900 1400 Balance -5 -1560 -1310 Weight 154.6 kg 152.5 kg Intake: IV 400 240 90 Sodium Chloride 0.9% 1, 400 240 90 000 ml In Empty Bag 1 bag @ 20 mls/hr IV .Q24H [facility] Rx#:[id number] Intake, IV Titration 100 Amount Magnesium Sulfate-D5w Pmx 100 1 gm In Dextrose/Water 1 100ml.bag @ 100 mls/hr IVPB ONCE ONE Rx#: [id number] Output: Urine 2445 1900 1400 Other: Voiding Method Indwelling Catheter Urinal - Exam Physical Exam: Revealed a 62-year-old -[place] male in no distress on room air.. Head: Atraumatic, normocephalic. HEENT:[Neck is supple.] [No neck masses.] [No thyromegaly.] [No JVD.] Chest: [Symmetrical chest expansion, clear bilaterally no crackles or rhonchi or wheezes Cardiac Exam: [Normal S1 and S2, no S3 gallop, no murmur.] Abdomen: [Soft, nontender, no megaly, no rebound, no guarding, normal bowel sounds.] Extremities: [No clubbing, no edema, no cyanosis.] Good pulses bilaterally. Neurological Exam: Alert and oriented 3. [No focal neurologic deficit.] Psychiatric: Normal mood, affect and normal mental status examination. Skin: No rashes. - Labs CBC & Chem 7: 11/09/22 04:09 11/09/22 04:09 Labs: Abnormal Lab Results - Last 24 Hours (Table) 11/08/22 11/08/22 11/09/22 Range/Units 16:14 21:08 04:09 WBC 14.8 H (3.8-10.6) k/uL Neutrophils # 11.8 H (1.3-7.7) k/uL Chloride (98-107) mmol/L Glucose (74-99) mg/dL POC Glucose (mg/dL) 124 H 166 H (70-110) mg/dL Total Bilirubin (0.2-1.3) mg/dL AST (17-59) U/L ALT (4-49) U/L 11/09/22 11/09/22 11/09/22 Range/Units 04:09 06:41 11:30 WBC (3.8-10.6) k/uL Neutrophils # (1.3-7.7) k/uL Chloride 109 H (98-107) mmol/L Glucose 122 H (74-99) mg/dL POC Glucose (mg/dL) 113 H 135 H (70-110) mg/dL Total Bilirubin 1.9 H (0.2-1.3) mg/dL AST 90 H (17-59) U/L ALT 70 H (4-49) U/L Microbiology - Last 24 Hours (Table) 11/08/22 07:43 Blood Culture - Preliminary Blood No Growth after 24 hours 11/08/22 07:49 Blood Culture - Preliminary Blood No Growth after 24 hours 11/06/22 22:05 Gram Stain - Final Sputum Sputum Culture - Final Assessment and Plan Assessment: Impression: Acute cardiac arrest/ventricular fibrillation with successful cardiac resuscitation and acute ST elevation myocardial infarction requiring stenting of LAD on admission. Acute hypoxic/hypercapnic respiratory failure post cardiac arrest patient was extubated uneventfully. Acute pulmonary edema secondary to acute LV dysfunction Obesity Type 2 diabetes Tobacco dependence syndrome Ischemic cardiomyopathy and LV dysfunction Recommendation: Consider transferring the patient out of the ICU to a monitor bed on the cardiac floor. Continue diuretics, chest x-ray is showing significant improvement. Continue statins and aspirin and beta blockers and effient Continue GI and DVT prophylaxis We will continue to follow Time with Patient: Less than 30
[2022-11-09 13:56] LABS: Appearance,Urine Clear (Clear); Bilirubin,Urine Negative (Negative); Blood,Urine Trace (Negative); Color,Urine Light Yellow; Glucose,Urine (UA) Negative (Negative); Ketones,Urine Negative (Negative); Leukocyte Esterase,Urine Negative (Negative); Nitrite,Urine Negative (Negative); PH, Urine 7.5 (5.0-8.0); Protein,Urine Negative (Negative); RBC,Urine 14 /hpf (0-5); Specific Gravity,Urine 1.007 (1.001-1.035); WBC,Urine 1 /hpf (0-5)
--- NOTE | 2022-11-09 14:24 | P.PN ---
Subjective Progress Note Date: 11/09/22 52-year-old male with a PMH of type II DM who was brought into the emergency room by EMS for cardiac arrest. The patient had reportedly had an episode of chest discomfort at home where he had activated EMS. The patient was reportedly thengiven aspirin by his neighbors and upon EMS arrival, he was ambulatory and was given sublingual nitroglycerin. Initial EKG was obtained which revealed ST elevations in leads V2 and V3. The patient subsequently became unresponsive and developed V. fib arrest. The patient was reportedly shocked 4 times by EMS. After arrival at the emergency room, the patient was noted to be in arrest and CPR was again initiated with initial rhythm being V. fib. The patient underwent another defibrillation with subsequent wide complex rhythm. He was intubated and was taken to the laundry laborer which revealed an acutely occluded proximal LAD which was subsequently stented. Patient was extubated on 11/08. Patient was seen and examined. No acute events overnight. Patient reports mild chest discomfort. He reports dysuria after his Moran catheter was removed. BP 127/70, P 81, RR 26, O2 saturation of 94% on RA. General: non toxic, no distress, appears at stated age Derm: warm, dry Head: atraumatic, normocephalic, symmetric Eyes: EOMI, no lid lag, anicteric sclera Mouth: no lip lesion, mucus membranes moist Cardiovascular: S1S2 reg, no murmur Lungs: CTA bilateral, no rhonchi, no rales , no accessory muscle use Ext: no gross muscle atrophy, no edema, no contractures Neuro: no focal neuro deficits Psych: Alert, oriented, appropriate affect #Status post ST elevation [place], and LAD stent #Status post V. fib arrest #Cardiogenic shock, likely #Oliguric, acute kidney injury #Lactic acidosis #Leukocytosis #Transaminitis #Type 2 diabetes Resolved: Ventilator dependent respiratory failure I have reviewed the following oim consultant notes: Manager Clinical Informatics documentation 11/09, consider transferring out of ICU, continue diuretics, statins, ASA, beta jono and effient. I have reviewed the results of the following tests: CBC shows leukocytosis of 14.8. This is decreased from WBC count of 18.8 yesterday. Possibly reactive, no signs of active infection. CMP shows K 3.7, Cl 109, BUN 11, Cr 0.97, T. Bili 1.9, AST 90, ALT 70. UA shows trace blood and 14 RBCs. I have ordered the following tests: Agree with CXR ordered for tomorrow. Agree with Echocardiogram ordered for today. I have discussed the care of this patient with the following independent historian: None. I have independently interpreted the following test below: CXR shows pulmonary edema. This is decreased from yesterday. I have discussed the management of this patient with the following physician: None. This patient has a high risk of morbidity due to the following reasons: Patient has an acute diagnosis of STEMI and VFib arrest requiring intubation and pressors that poses a threat to life or bodily function. Echocardiogram reveals depressed EF of 30-35%. He is currently extubated. Continue aspirin 81 mg by mouth daily, Lipitor 80 mg by mouth at bedtime, Parasugel 10 mg by mouth daily, and Metoprolol 25 mg by mouth twice a day. Continue Metoprolol as above. Also on Lisinopril 10 mg by mouth twice a day and Aldactone 25 mg by mouth daily. Continue Lasix 40 mg IV twice a day. This is nephrotoxic and his renal function should be monitored daily. Patient has diuresed 3.6 L over the past 24 hours. He will likely need a LifeVest on discharge. Plans for repeat Echocardiogram today. Heparin SQ for DVT prophylaxis. Patient would like to be FULL CODE. Objective - Vital Signs Vital signs: Vital Signs Temp 98.4 F 11/09/22 04:00 Pulse 80 11/09/22 08:17 Resp 26 H 11/09/22 07:00 BP 127/70 11/09/22 07:00 Pulse Ox 95 11/09/22 08:08 FiO2 2 11/08/22 06:00 Intake & Output 11/08/22 11/09/22 11/09/22 18:59 06:59 18:59 Intake Total 400 340 20 Output Total 2445 1900 150 Balance -2045 -1560 -130 Weight 154.6 kg 152.5 kg Intake: IV 400 240 20 Sodium Chloride 0.9% 1, 400 240 20 000 ml In Empty Bag 1 bag @ 20 mls/hr IV .Q24H [facility] Rx#:[id number] Intake, IV Titration 100 Amount Magnesium Sulfate-D5w Pmx 100 1 gm In Dextrose/Water 1 100ml.bag @ 100 mls/hr IVPB ONCE ONE Rx#: [id number] Output: Urine 6688 1900 150 Other: Voiding Method Indwelling Catheter Urinal - Labs CBC & Chem 7: 11/09/22 04:09 11/09/22 04:09 Labs: Abnormal Lab Results - Last 24 Hours (Table) 11/08/22 11/08/22 11/08/22 Range/Units 07:43 09:56 11:45 WBC (3.8-10.6) k/uL Neutrophils # (1.3-7.7) k/uL Chloride (98-107) mmol/L Glucose (74-99) mg/dL POC Glucose (mg/dL) 153 H (70-110) mg/dL Total Bilirubin (0.2-1.3) mg/dL AST (17-59) U/L ALT (4-49) U/L Procalcitonin 2.04 H (0.02-0.09) ng/mL Urine Blood Small H (Negative) Urine RBC 6 H (0-5) /hpf Urine Mucus Rare H (None) /hpf 11/08/22 11/08/22 11/09/22 Range/Units 16:14 21:08 04:09 WBC 14.8 H (3.8-10.6) k/uL Neutrophils # 11.8 H (1.3-7.7) k/uL Chloride (98-107) mmol/L Glucose (74-99) mg/dL POC Glucose (mg/dL) 124 H 166 H (70-110) mg/dL Total Bilirubin (0.2-1.3) mg/dL AST (17-59) U/L ALT (4-49) U/L Procalcitonin (0.02-0.09) ng/mL Urine Blood (Negative) Urine RBC (0-5) /hpf Urine Mucus (None) /hpf 11/09/22 11/09/22 Range/Units 04:09 06:41 WBC (3.8-10.6) k/uL Neutrophils # (1.3-7.7) k/uL Chloride 109 H (98-107) mmol/L Glucose 122 H (74-99) mg/dL POC Glucose (mg/dL) 113 H (70-110) mg/dL Total Bilirubin 1.9 H (0.2-1.3) mg/dL AST 90 H (17-59) U/L ALT 70 H (4-49) U/L Procalcitonin (0.02-0.09) ng/mL Urine Blood (Negative) Urine RBC (0-5) /hpf Urine Mucus (None) /hpf Microbiology - Last 24 Hours (Table) 11/06/22 22:05 Gram Stain - Final Sputum Sputum Culture - Final
[2022-11-09] MEDS: HYDROCORTISONE SUCCINATE 100 MG/2 ML VIAL IV SCH (16:23)
[2022-11-09 16:55] LABS: Glucose,Whole Blood 110 mg/dL (70-110)
[2022-11-09 19:47] LABS: Glucose,Whole Blood 121 mg/dL (70-110)
[2022-11-09] MEDS: ATORVASTATIN 80 MG TAB PO SCH (20:11)
--- NOTE | 2022-11-09 21:51 | PN ---
PROGRESS NOTE SUBJECTIVE: This is a gentleman, who is 52 years of age, had an anterior NV, underwent stenting of LAD. He feels better compared to yesterday. His breathing is easier. His weight is down. He is in sinus rhythm, and heart rate in the 70s. Blood pressure control is better with hydralazine and lisinopril combination. Labs are good. OBJECTIVE: VITAL SIGNS: Stable. HEART: S1 and S2 heard normally. No significant murmurs. LUNGS: Reveal decent air entry, improved. ABDOMEN: Unchanged. LOWER EXTREMITIES: Unchanged. IMPRESSION: 1. Ischemic heart disease with stenting of left anterior descending with ST-elevation myocardial infarction presentation on Tuesday. 2. Obesity. 3. Hypertension. 4. History of smoking and chronic obstructive pulmonary disease. RECOMMENDATIONS: I am recommending that we increase activity, move him to telemetry, check a CBC and BMP tomorrow, continue IV Lasix at least for 1 more day, and based on clinical course, we will make further recommendations. I will also check echocardiogram today. His renal function is normal. MMODL / IJN: [id number] /
[2022-11-10 05:35] LABS: Basophils % (A) 0 %; Eosinophils % (A) 0 %; HCT 43.8 % (39.0-53.0); HGB 14.4 gm/dL (13.0-17.5); Lymphocytes # (A) 1.3 k/uL (1.0-4.8); Lymphocytes % (A) 10 %; MCH 30.3 pg (25.0-35.0); MCV 91.9 fL (80.0-100.0); Mean Platelet Volume 7.8; Monocytes # (A) 0.5 k/uL (0-1.0); Monocytes % (A) 4 %; Neutrophils % (A) 85 %; Platelet Count 252 k/uL (150-450); RBC 4.76 m/uL (4.30-5.90); RDW 12.9 % (11.5-15.5); WBC 12.9 k/uL (3.8-10.6)
[2022-11-10 05:43] LABS: African American GFR (CKD) >90 (>60 ml/min/1.73 sqM); Anion Gap 7 mmol/L; Blood Urea Nitrogen 13 mg/dL (9-20); Calcium 9.1 mg/dL (8.4-10.2); Carbon Dioxide 28 mmol/L (22-30); Chloride 104 mmol/L (98-107); Glucose 168 mg/dL (74-99); Non-African American GFR(CKD) 84 (>60 ml/min/1.73 sqM); Potassium 3.8 mmol/L (3.5-5.1); Sodium 139 mmol/L (137-145)
[2022-11-10] MEDS: SODIUM CHLORIDE 0.9% 1,000 ML in EMPTY BAG 1 BAG IV SCH (05:52)
[2022-11-10] MEDS ORDERED: POTASSIUM CHLORIDE ER 20 MEQ TAB.ER PO SCH (06:00)
[2022-11-10 06:53] LABS: Glucose,Whole Blood 117 mg/dL (70-110)
[2022-11-10] MEDS: INSULIN ASPART (NovoLOG) 100 UNIT/ML VIAL SQ SCH ×4 (07:13→20:01)
[2022-11-10] MEDS: ALBUTEROL NEBULIZED 2.5 MG/3 ML INHALATION SCH ×3 (07:56→20:26)
[2022-11-10] MEDS: FUROSEMIDE 40 MG TAB PO SCH (08:54)
[2022-11-10] MEDS: METOPROLOL TARTRATE 25 MG TAB PO SCH ×2 (08:54→20:00)
[2022-11-10] MEDS: HEPARIN SODIUM,PORCINE/PF 5,000 UNIT/0.5 ML SYRINGE SQ SCH ×4 (08:54→23:55)
[2022-11-10] MEDS: lisinopriL 20 MG TAB PO SCH (08:54)
[2022-11-10] MEDS: PRASUGREL 10 MG TAB PO SCH (08:54)
[2022-11-10] MEDS: ASPIRIN 81 MG PO SCH (08:54)
[2022-11-10] MEDS: HYDROCORTISONE SUCCINATE 100 MG/2 ML VIAL IV SCH ×2 (08:54)
[2022-11-10] MEDS: SPIRONOLACTONE 25 MG TAB PO SCH (08:54)
--- NOTE | 2022-11-10 09:56 | PN ---
PROGRESS NOTE SUBJECTIVE: This gentleman suffered from an acute anterior CA last Tuesday. He is doing much better today. His echo revealed an improved ejection fraction in the 40% to 45% range. OBJECTIVE: VITAL SIGNS: Stable. Blood pressure control is much better. NECK: No JVD. HEART: S1 and S2 heard normally. No significant murmurs. LUNGS: Clear. ABDOMEN: Unremarkable. LOWER EXTREMITIES: Unremarkable. RECOMMENDATIONS: I am recommending that we discontinue IV Lasix, place him on Lasix 40 mg every morning, increase the lisinopril to 20 mg in the morning, 10 mg in the evening, discontinue hydralazine, increase activity and possible discharge tomorrow. He does not require a LifeVest. Advised to see Dr. Erickson in 1 week. Discussed my thoughts in detail with the patient. MMODL / IJN: [id number] /
[2022-11-10 11:30] LABS: Glucose,Whole Blood 115 mg/dL (70-110)
--- NOTE | 2022-11-10 11:52 | P.PN ---
Subjective Progress Note Date: 11/10/22 Principal diagnosis: Acute cardiac arrest/ventricular fibrillation 52-year-old -[place] male patient, had an episode of chest pain and collapsed at home. EMS came to the scene and the patient was found to be in V. fib. The patient required defibrillation 4. He presented to the emergency department unresponsive and he went again into ventricular fibrillation. He was intubated, defibrillated, EKG showed ST segment elevation anteriorly and the patient was taken immediately to emergent cardiac catheterization and the patient was found to have acutely occluded proximal LAD. No abnormalities within the RCA or circumflex. The patient underwent successful stenting of the proximal LAD. Left ventricular end-diastolic pressure was low. The patient was brought into the intensive care unit intubated on a mechanical ventilator. He was kept on propofol. Propofol was dropping his pressure initially and we had to use some fentanyl. This morning fentanyl is often the patient is strictly on propofol at the rate of 40 mcg/kg/m. His calm and comfortable. Overnight, he became hypotensive. He was given IV fluids a total of 2 L he was also given IV albumin. His blood pressure responded. He required pressors, norepinephrine was as high as 26 mcg/m and currently is on a norepinephrine at a dose of 0.06 microvascular kilogram per minute. Urine output is adequate. He does have some diminished pulses in lower extremities, good femoral pulses for now. He had this procedure done through the right radial approach. Chest x-ray was showing some pulmonary edema. The patient has adequate oxygenation. The patient is currently on assist-control mode of mechanical ventilation at the rate of 26, tidal volume 500, FiO2 was 60% and a PEEP of 10. Blood gas shows adequate oxygenation and ventilation. The troponin peaked at 12. The patient has another episode of ventricular fibrillation immediately following the procedure. He was started on amiodarone. Currently amiodarone drip is running at 0.5 mg/m. Blood sugars were elevated and the patient was started on a sliding scale insulin coverage. Potassium was also replaced. Reevaluated today in the ICU on 11/08/2022, patient remains in the ICU, in no distress, however he continues to have intermittent episodes of diaphoresis. He is on 2 L nasal cannula. IV fluids at KVO. Has been receiving Lasix 40 mg IV push and he is also receiving Aldactone. Patient is status post stenting of LAD 2 his initial presentation was a presentation of ventricular fibrillation/cardiac arrest ejection fraction is 30-35%. Eventually the patient may require a LifeVest when time comes to discharge the patient home. Patient denies any chest pain, denies any shortness of breath, chest x-ray is showing mild interstitial edema. Basic metabolic profile is normal BUN is 9 creatinine 1.02, pro-calcitonin level is 2.04, chest x-ray is more consistent with pulmonary edema than pneumonia. Echocardiogram yesterday showed severe hypokinesis with ejection fraction of 30-35%. Patient was reevaluated today on 11/09/2022, patient remains in the ICU, room air, in no distress, patient is scheduled to have repeat echocardiogram today. His chest x-ray is showing improvement in his pulmonary edema. No further episodes of diaphoresis. His IV fluids at KVO. Patient was seen by cardiology and the plan is to transfer the patient to the cardiac floor. WBC count is 14.8 hemoglobin 13.6 electrodes are normal renal profile is normal, repeat echocardiogram this morning showed slight improvement in his LV function, e jection fraction is now 40-45%. There is also evidence of [id number] mitral regurgitation. Patient was reevaluated today on 11/10/2022, patient is doing well symptomatically, sitting at a bedside chair, patient had an improved echocardiogram yesterday, hence he may not need LifeVest. Patient is on room air, not in any distress, and he is presently an overflow in the ICU. Could be transferred to a cardiac floor or could even be considered for discharge home if cleared by cardiology. Labs today were basically unremarkable. Objective - Vital Signs Vital signs: Vital Signs Temp 98.1 F 11/10/22 08:00 Pulse 76 11/10/22 11:36 Resp 15 11/10/22 11:36 BP 134/96 11/10/22 08:00 Pulse Ox 96 11/10/22 04:00 FiO2 2 11/08/22 06:00 Intake & Output 11/09/22 11/10/22 11/10/22 18:59 06:59 18:59 Intake Total 90 200 Output Total 1700 2450 700 Balance -1610 -2250 -700 Weight 146 kg Intake: IV 90 0 Sodium Chloride 0.9% 1, 90 0 000 ml In Empty Bag 1 bag @ 20 mls/hr IV .Q24H [facility] Rx#:[id number] Oral 200 Output: Urine 1700 2450 700 Other: Voiding Method Urinal Urinal Urinal # Voids 1 0 1 # Bowel Movements 1 - Exam Physical Exam: Revealed a 62-year-old -[place] male in no distress on room air.. Head: Atraumatic, normocephalic. HEENT:[Neck is supple.] [No neck masses.] [No thyromegaly.] [No JVD.] Chest: [Symmetrical chest expansion, clear bilaterally no crackles or rhonchi or wheezes Cardiac Exam: [Normal S1 and S2, no S3 gallop, no murmur.] Abdomen: [Soft, nontender, no megaly, no rebound, no guarding, normal bowel sounds.] Extremities: [No clubbing, no edema, no cyanosis.] Good pulses bilaterally. Neurological Exam: Alert and oriented 3. [No focal neurologic deficit.] Psychiatric: Normal mood, affect and normal mental status examination. Skin: No rashes. - Labs CBC & Chem 7: 11/10/22 04:41 11/10/22 04:41 Labs: Abnormal Lab Results - Last 24 Hours (Table) 11/09/22 11/09/22 11/10/22 Range/Units 13:32 19:45 04:41 WBC 12.9 H (3.8-10.6) k/uL Neutrophils # 11.0 H (1.3-7.7) k/uL Glucose (74-99) mg/dL POC Glucose (mg/dL) 121 H (70-110) mg/dL Urine Blood Trace H (Negative) Urine RBC 14 H (0-5) /hpf 11/10/22 11/10/22 11/10/22 Range/Units 04:41 06:52 11:28 WBC (3.8-10.6) k/uL Neutrophils # (1.3-7.7) k/uL Glucose 168 H (74-99) mg/dL POC Glucose (mg/dL) 117 H 115 H (70-110) mg/dL Urine Blood (Negative) Urine RBC (0-5) /hpf Microbiology - Last 24 Hours (Table) 11/08/22 07:49 Blood Culture - Preliminary Blood No Growth after 48 hours 11/08/22 07:43 Blood Culture - Preliminary Blood No Growth after 48 hours 11/06/22 22:05 Gram Stain - Final Sputum Sputum Culture - Final Assessment and Plan Assessment: Impression: Acute cardiac arrest/ventricular fibrillation with successful cardiac resuscitation and acute ST elevation myocardial infarction requiring stenting of LAD on admission. Acute hypoxic/hypercapnic respiratory failure post cardiac arrest patient was extubated uneventfully. Acute pulmonary edema secondary to acute LV dysfunction Obesity Type 2 diabetes Tobacco dependence syndrome Ischemic cardiomyopathy and LV dysfunction, repeat echocardiogram showed improvement in LV function. Recommendation: Patient is presently on overflow to go to a monitored bed on the cardiac unit. Consider discharging the patient home once cleared by cardiology Continue statins and aspirin and beta blockers and effient Continue GI and DVT prophylaxis We will continue to follow Time with Patient: Less than 30
[2022-11-10 12:55] VITALS: BMI 50.4
--- NOTE | 2022-11-10 14:15 | P.PN ---
Subjective Progress Note Date: 11/10/22 52-year-old male with a PMH of type II DM who was brought into the emergency room by EMS for cardiac arrest. The patient had reportedly had an episode of chest discomfort at home where he had activated EMS. The patient was reportedly thengiven aspirin by his neighbors and upon EMS arrival, he was ambulatory and was given sublingual nitroglycerin. Initial EKG was obtained which revealed ST elevations in leads V2 and V3. The patient subsequently became unresponsive and developed V. fib arrest. The patient was reportedly shocked 4 times by EMS. After arrival at the emergency room, the patient was noted to be in arrest and CPR was again initiated with initial rhythm being V. fib. The patient underwent another defibrillation with subsequent wide complex rhythm. He was intubated and was taken to the mine laborer which revealed an acutely occluded proximal LAD which was subsequently stented. Patient was extubated on 11/08. Patient was seen and examined. No acute events overnight. Patient reports mild right sided chest discomfort. BP 127/70, P 81, RR 26, O2 saturation of 94% on RA. General: non toxic, no distress, appears at stated age Derm: warm, dry Head: atraumatic, normocephalic, symmetric Eyes: EOMI, no lid lag, anicteric sclera Mouth: no lip lesion, mucus membranes moist Cardiovascular: S1S2 reg, no murmur Lungs: CTA bilateral, no rhonchi, no rales , no accessory muscle use Ext: no gross muscle atrophy, no edema, no contractures Neuro: no focal neuro deficits Psych: Alert, oriented, appropriate affect #Status post ST elevation AR, and LAD stent #Status post V. fib arrest #Cardiogenic shock, likely #Oliguric, acute kidney injury #Lactic acidosis #Leukocytosis #Transaminitis #Type 2 diabetes Resolved: Ventilator dependent respiratory failure I have reviewed the following travel service consultant notes: [employer] documentation 11/10, transfer out of ICU, statins, ASA, beta jono and effient. Cardiology note 11/10, discontinue lasix IV and switch to oral, increase lisinopril, discontinue hydralazine, he does not require LifeVest. I have reviewed the results of the following tests: CBC shows leukocytosis of 12.9. This is decreased from WBC count of 14.8 yesterday. Possibly reactive, no signs of active infection. BMP shows BUN 13, Cr 1.03 Echocardiogram shows EF 40-45% with hypokinetic wall motion. I have ordered the following tests: None. I have discussed the care of this patient with the following independent historian: None. I have independently interpreted the following test below: None. I have discussed the management of this patient with the following physician: None. This patient has a moderate risk of morbidity due to the following reasons: Patient has an acute diagnosis of STEMI and VFib arrest requiring intubation and pressors that poses a threat to life or bodily function. Echocardiogram reveals depressed EF of 30-35%. Repeat echocardiogram shows EF of 40-45%. He is currently extubated. Continue aspirin 81 mg by mouth daily, Lipitor 80 mg by mouth at bedtime, Parasugel 10 mg by mouth daily, and Metoprolol 25 mg by mouth twice a day. Continue Metoprolol as above. Also on Lisinopril 20 mg by mouth in the morning along with 10 mg at bedtime and Aldactone 25 mg by mouth daily. Switch Lasix IV 40 mg by mouth daily. Patient has diuresed 1L over the past 24 hours. Heparin SQ for DVT prophylaxis. Patient would like to be FULL CODE. Objective - Vital Signs Vital signs: Vital Signs Temp 98.9 F 11/10/22 12:00 Pulse 79 11/10/22 13:00 Resp 26 H 11/10/22 12:00 BP 138/78 11/10/22 12:00 Pulse Ox 95 11/10/22 12:00 FiO2 2 11/08/22 06:00 Intake & Output 11/09/22 11/10/22 11/10/22 18:59 06:59 18:59 Intake Total 90 200 Output Total 1700 2450 700 Balance -1610 -2250 -700 Weight 146 kg 146 kg Intake: IV 90 0 Sodium Chloride 0.9% 1, 90 0 000 ml In Empty Bag 1 bag @ 20 mls/hr IV .Q24H [facility] Rx#:[id number] Oral 200 Output: Urine 1700 2450 700 Other: Voiding Method Urinal Urinal Urinal # Voids 1 0 1 # Bowel Movements 1 - Labs CBC & Chem 7: 11/10/22 04:41 11/10/22 04:41 Labs: Abnormal Lab Results - Last 24 Hours (Table) 11/09/22 11/10/22 11/10/22 Range/Units 19:45 04:41 04:41 WBC 12.9 H (3.8-10.6) k/uL Neutrophils # 11.0 H (1.3-7.7) k/uL Glucose 168 H (74-99) mg/dL POC Glucose (mg/dL) 121 H (70-110) mg/dL 11/10/22 11/10/22 Range/Units 06:52 11:28 WBC (3.8-10.6) k/uL Neutrophils # (1.3-7.7) k/uL Glucose (74-99) mg/dL POC Glucose (mg/dL) 117 H 115 H (70-110) mg/dL Microbiology - Last 24 Hours (Table) 11/08/22 07:49 Blood Culture - Preliminary Blood No Growth after 48 hours 11/08/22 07:43 Blood Culture - Preliminary Blood No Growth after 48 hours
[2022-11-10 16:32] LABS: Glucose,Whole Blood 142 mg/dL (70-110)
[2022-11-10 19:58] LABS: Glucose,Whole Blood 132 mg/dL (70-110)
[2022-11-10] MEDS: ATORVASTATIN 80 MG TAB PO SCH (20:00)
[2022-11-10] MEDS ORDERED: lisinopriL 10 MG TAB PO SCH (21:00)
[2022-11-11 06:39] LABS: Glucose,Whole Blood 99 mg/dL (70-110)
[2022-11-11 06:43] LABS: Basophils # (A) 0.1 k/uL (0-0.2); Basophils % (A) 1 %; Eosinophils # (A) 0.1 k/uL (0-0.7); Eosinophils % (A) 1 %; HCT 43.4 % (39.0-53.0); HGB 13.9 gm/dL (13.0-17.5); Lymphocytes # (A) 3.9 k/uL (1.0-4.8); Lymphocytes % (A) 32 %; MCH 29.9 pg (25.0-35.0); MCHC 31.9 g/dL (31.0-37.0); MCV 93.5 fL (80.0-100.0); Mean Platelet Volume 7.6; Monocytes # (A) 0.6 k/uL (0-1.0); Monocytes % (A) 5 %; Neutrophils # (A) 7.5 k/uL (1.3-7.7); Neutrophils % (A) 60 %; Platelet Count 260 k/uL (150-450); RBC 4.64 m/uL (4.30-5.90); RDW 12.9 % (11.5-15.5); WBC 12.4 k/uL (3.8-10.6)
[2022-11-11] MEDS: INSULIN ASPART (NovoLOG) 100 UNIT/ML VIAL SQ SCH ×2 (06:46→12:30)
[2022-11-11 07:23] LABS: Calcium 8.5 mg/dL (8.4-10.2); Magnesium 1.8 mg/dL (1.6-2.3); Potassium 3.8 mmol/L (3.5-5.1)
[2022-11-11] MEDS: ALBUTEROL NEBULIZED 2.5 MG/3 ML INHALATION SCH ×2 (08:03→10:48)
--- NOTE | 2022-11-11 08:45 | P.PN ---
Subjective PROGRESS NOTE The patient is a 52-year-old male who presented with chest discomfort, recurrent ventricle fibrillation, requiring multiple cardioversion, respiratory failure and cardiac arrest, he underwent cardiac catheterization and was found to have acutely occluded LAD and underwent stenting of that vessel. He remains intubated and sedated. According to the nursing staff when his sedation with decreased he was following commands. He is on a low dose of norepinephrine. He continues to be in sinus mechanism but he has short burst of VT but no sustained ventricular tachycardia or fibrillation. He has good urinary output. He continues to be on IV amiodarone. There is no episodes of atrial fibrillation. His oxygenation is better. He required large amount of fluid yesterday. He's feeling pressure was low 11/11 Patient seen and examined. No further ectopy noted. Patient was increased on lisinopril yesterday with blood pressures well controlled. He denies any chest pain or pressure. Denies any shortness breath. Does still have a cough may be related to intubation. PHYSICAL EXAMINATION: Vitals reviewed LUNGS: Clear to auscultation HEART: Regular rate and rhythm, S1, S2. No S3. No systolic murmur ABDOMEN: Soft, obese, no organomegaly, positive bowel sounds EXTREMETIES: No edema, intact right radial IMPRESSION: 1. Status post acute anterior wall myocardial infarction with stenting of the LAD 2. Recurrent ventricular fibrillation, stabilizing on IV amiodarone and beta jono 3. Respiratory failure post cardiac arrest 4. History of chronic tobacco use 5. History of diabetes 6. Hypertension PLAN: Continue current regimen. No further ectopy noted and V. fib related to his acute coronary syndrome. No need for LifeVest. Appears stable for discharge home on current regimen. If cough persists, change Lisinopril outpt. Objective - Vital Signs Vital signs: Vital Signs Temp 98.3 F 11/11/22 04:00 Pulse 80 11/11/22 08:16 Resp 15 11/11/22 08:16 BP 94/78 11/11/22 04:00 Pulse Ox 96 11/11/22 04:00 FiO2 2 11/08/22 06:00 Intake & Output 11/10/22 11/11/22 11/11/22 18:59 06:59 18:59 Output Total 1000 651 Balance -1000 -651 Weight 146 kg 144.9 kg Output: Urine 1000 650 Stool 1 Other: Voiding Method Urinal Urinal # Voids 1 1 - Labs CBC & Chem 7: 11/11/22 05:50 11/11/22 05:50 Labs: Abnormal Lab Results - Last 24 Hours (Table) 11/10/22 11/10/22 11/10/22 Range/Units 11:28 16:31 19:56 WBC (3.8-10.6) k/uL Glucose (74-99) mg/dL POC Glucose (mg/dL) 115 H 142 H 132 H (70-110) mg/dL 11/11/22 11/11/22 Range/Units 05:50 05:50 WBC 12.4 H (3.8-10.6) k/uL Glucose 100 H (74-99) mg/dL POC Glucose (mg/dL) (70-110) mg/dL Microbiology - Last 24 Hours (Table) 11/08/22 07:49 Blood Culture - Preliminary Blood No Growth after 48 hours 11/08/22 07:43 Blood Culture - Preliminary Blood No Growth after 48 hours
[2022-11-11] MEDS: HEPARIN SODIUM,PORCINE/PF 5,000 UNIT/0.5 ML SYRINGE SQ SCH (09:00)
[2022-11-11] MEDS: ASPIRIN 81 MG PO SCH (09:48)
[2022-11-11] MEDS: PRASUGREL 10 MG TAB PO SCH (09:48)
[2022-11-11] MEDS: FUROSEMIDE 40 MG TAB PO SCH (09:49)
[2022-11-11] MEDS: SPIRONOLACTONE 25 MG TAB PO SCH (09:49)
[2022-11-11] MEDS: METOPROLOL TARTRATE 25 MG TAB PO SCH (09:50)
[2022-11-11] MEDS: lisinopriL 20 MG TAB PO SCH (09:50)
[2022-11-11] MEDS: SODIUM CHLORIDE 0.9% 80 ML with fentaNYL (PF) 1,000 MCG IV SCH ×2 (09:54)
[2022-11-11 11:38] LABS: Glucose,Whole Blood 114 mg/dL (70-110)
--- NOTE | 2022-11-11 12:12 | P.PN ---
Subjective Progress Note Date: 11/11/22 Principal diagnosis: Acute cardiac arrest/ventricular fibrillation 52-year-old -[place] Citizen male patient, had an episode of chest pain and collapsed at home. EMS came to the scene and the patient was found to be in V. fib. The patient required defibrillation 4. He presented to the emergency department unresponsive and he went again into ventricular fibrillation. He was intubated, defibrillated, EKG showed ST segment elevation anteriorly and the patient was taken immediately to emergent cardiac catheterization and the patient was found to have acutely occluded proximal LAD. No abnormalities within the RCA or circumflex. The patient underwent successful stenting of the proximal LAD. Left ventricular end-diastolic pressure was low. The patient was brought into the intensive care unit intubated on a mechanical ventilator. He was kept on propofol. Propofol was dropping his pressure initially and we had to use some fentanyl. This morning fentanyl is often the patient is strictly on propofol at the rate of 40 mcg/kg/m. His calm and comfortable. Overnight, he became hypotensive. He was given IV fluids a total of 2 L he was also given IV albumin. His blood pressure responded. He required pressors, norepinephrine was as high as 26 mcg/m and currently is on a norepinephrine at a dose of 0.06 microvascular kilogram per minute. Urine output is adequate. He does have some diminished pulses in lower extremities, good femoral pulses for now. He had this procedure done through the right radial approach. Chest x-ray was showing some pulmonary edema. The patient has adequate oxygenation. The patient is currently on assist-control mode of mechanical ventilation at the rate of 26, tidal volume 500, FiO2 was 60% and a PEEP of 10. Blood gas shows adequate oxygenation and ventilation. The troponin peaked at 12. The patient has another episode of ventricular fibrillation immediately following the procedure. He was started on amiodarone. Currently amiodarone drip is running at 0.5 mg/m. Blood sugars were elevated and the patient was started on a sliding scale insulin coverage. Potassium was also replaced. Reevaluated today in the ICU on 11/08/2022, patient remains in the ICU, in no distress, however he continues to have intermittent episodes of diaphoresis. He is on 2 L nasal cannula. IV fluids at KVO. Has been receiving Lasix 40 mg IV push and he is also receiving Aldactone. Patient is status post stenting of LAD 2 his initial presentation was a presentation of ventricular fibrillation/cardiac arrest ejection fraction is 30-35%. Eventually the patient may require a LifeVest when time comes to discharge the patient home. Patient denies any chest pain, denies any shortness of breath, chest x-ray is showing mild interstitial edema. Basic metabolic profile is normal BUN is 9 creatinine 1.02, pro-calcitonin level is 2.04, chest x-ray is more consistent with pulmonary edema than pneumonia. Echocardiogram yesterday showed severe hypokinesis with ejection fraction of 30-35%. Patient was reevaluated today on 11/09/2022, patient remains in the ICU, room air, in no distress, patient is scheduled to have repeat echocardiogram today. His chest x-ray is showing improvement in his pulmonary edema. No further episodes of diaphoresis. His IV fluids at KVO. Patient was seen by cardiology and the plan is to transfer the patient to the cardiac floor. WBC count is 14.8 hemoglobin 13.6 electrodes are normal renal profile is normal, repeat echocardiogram this morning showed slight improvement in his LV function, e jection fraction is now 40-45%. There is also evidence of [id number] mitral regurgitation. Patient was reevaluated today on 11/10/2022, patient is doing well symptomatically, sitting at a bedside chair, patient had an improved echocardiogram yesterday, hence he may not need LifeVest. Patient is on room air, not in any distress, and he is presently an overflow in the ICU. Could be transferred to a cardiac floor or could even be considered for discharge home if cleared by cardiology. Labs today were basically unremarkable. Patient was reevaluated today on 11/11/2022, patient is doing well, he is on room air, no specific complaints. Patient is not in any distress, he was seen by car diology, and clear the patient for discharge Objective - Vital Signs Vital signs: Vital Signs Temp 98.2 F 11/11/22 08:00 Pulse 76 11/11/22 11:17 Resp 15 11/11/22 11:17 BP 134/79 11/11/22 08:00 Pulse Ox 96 11/11/22 08:00 FiO2 2 11/08/22 06:00 Intake & Output 11/10/22 11/11/22 11/11/22 18:59 06:59 18:59 Intake Total 10 Output Total 1000 651 Balance -1000 -651 10 Weight 146 kg 144.9 kg Intake: IV 10 Invasive Line 4 10 Output: Urine 1000 650 Stool 1 Other: Voiding Method Urinal Urinal Urinal # Voids 1 1 - Exam Physical Exam: Revealed a 62-year-old -[place] Citizen male in no distress on room air.. Head: Atraumatic, normocephalic. HEENT:[Neck is supple.] [No neck masses.] [No thyromegaly.] [No JVD.] Chest: [Symmetrical chest expansion, clear bilaterally no crackles or rhonchi or wheezes Cardiac Exam: [Normal S1 and S2, no S3 gallop, no murmur.] Abdomen: [Soft, nontender, no megaly, no rebound, no guarding, normal bowel sounds.] Extremities: [No clubbing, no edema, no cyanosis.] Good pulses bilaterally. Neurological Exam: Alert and oriented 3. [No focal neurologic deficit.] Psychiatric: Normal mood, affect and normal mental status examination. Skin: No rashes. - Labs CBC & Chem 7: 11/11/22 05:50 11/11/22 05:50 Labs: Abnormal Lab Results - Last 24 Hours (Table) 11/10/22 11/10/22 11/11/22 Range/Units 16:31 19:56 05:50 WBC 12.4 H (3.8-10.6) k/uL Glucose (74-99) mg/dL POC Glucose (mg/dL) 142 H 132 H (70-110) mg/dL 11/11/22 11/11/22 Range/Units 05:50 11:36 WBC (3.8-10.6) k/uL Glucose 100 H (74-99) mg/dL POC Glucose (mg/dL) 114 H (70-110) mg/dL Microbiology - Last 24 Hours (Table) 11/08/22 07:43 Blood Culture - Preliminary Blood No Growth after 72 hours 11/08/22 07:49 Blood Culture - Preliminary Blood No Growth after 72 hours Assessment and Plan Assessment: Impression: Acute cardiac arrest/ventricular fibrillation with successful cardiac resuscitation and acute ST elevation myocardial infarction requiring stenting of LAD on admission. Acute hypoxic/hypercapnic respiratory failure post cardiac arrest patient was extubated uneventfully. Acute pulmonary edema secondary to acute LV dysfunction Obesity Type 2 diabetes Tobacco dependence syndrome Ischemic cardiomyopathy and LV dysfunction, repeat echocardiogram showed improvement in LV function. Hence no need for LifeVest Recommendation: We'll clear the patient for discharge home if cleared by cardiology. Patient to follow-up with cardiology outpatient basis Time with Patient: Less than 30
--- NOTE | 2022-11-11 12:58 | P.DS ---
Providers Date of admission: 11/06/22 20:01 Expected date of discharge: 11/11/22 Attending physician: Jerald Sow MD Consults: 11/06/22 20:01 Consult Physician Urgent Consulting Provider: Jonn Anaya Consult Reason/Comments: stemi, cardiac arrest Do you want consulting provider notified?: Already Contacted 11/06/22 21:17 Consult Physician Routine Consulting Provider: [facility] Consult Reason/Comments: Post Interventional Patient Do you want consulting provider notified?: Already Contacted 11/06/22 21:29 Consult Physician Routine Consulting Provider: Memo Medina Consult Reason/Comments: vent manag Do you want consulting provider notified?: Already Contacted Primary care physician: Stated None Hospital Course: 52-year-old male with a PMH of type II DM who was brought into the emergency room by EMS for cardiac arrest. The patient had reportedly had an episode of chest discomfort at home where he had activated EMS. The patient was reportedly thengiven aspirin by his neighbors and upon EMS arrival, he was ambulatory and was given sublingual nitroglycerin. Initial EKG was obtained which revealed ST elevations in leads V2 and V3. The patient subsequently became unresponsive and developed V. fib arrest. The patient was reportedly shocked 4 times by EMS. After arrival at the emergency room, the patient was noted to be in arrest and CPR was again initiated with initial rhythm being V. fib. The patient underwent another defibrillation with subsequent wide complex rhythm. He was intubated and was taken to the labor specialist which revealed an acutely occluded proximal LAD which was subsequently stented. Patient was extubated on 11/08. He continued to progress well. Echocardiogram revealed depressed EF of 30-35%. Repeat echocardiogram showed EF of 40-45%. Cardiology recommended no LifeVest on discharge. Patient seen and examined. No acute events overnight. Patient reports no chest pain, shortness breath or palpitations. No nausea or vomiting. No fever or chills. He'll be discharged home on aspirin, Effient, Aldactone, lisinopril, Lasix, Lipitor and metoprolol. He is advised follow-up with his PCP within 1-2 days of discharge. He is advised follow-up with cardiology within 1 week of discharge. Patient verbalized understanding of the plan. Pertinent studies include chest x-ray, echocardiogram. Pertinent procedures include cardiac cath. General: non toxic, no distress, appears at stated age Derm: warm, dry Head: atraumatic, normocephalic, symmetric Eyes: EOMI, no lid lag, anicteric sclera Mouth: no lip lesion, mucus membranes moist Ext: no gross muscle atrophy, no edema, no contractures Neuro: no focal neuro deficits Psych: Alert, oriented, appropriate affect Discharge diagnosis: #Status post ST elevation IA, and LAD stent #Status post V. fib arrest #Cardiogenic shock, likely #Oliguric, acute kidney injury #Lactic acidosis #Leukocytosis #Transaminitis #Type 2 diabetes Resolved: Ventilator dependent respiratory failure This complex discharge took 35 minutes complete. Patient Condition at Discharge: Stable Plan - Discharge Summary New Discharge Prescriptions: New Aspirin [Adult Low Dose Aspirin EC] 81 mg PO DAILY #30 tab Spironolactone [Aldactone] 25 mg PO DAILY #30 tab Prasugrel [Effient] 10 mg PO DAILY #30 tab Nitroglycerin Sl Tabs [Nitrostat] 0.4 mg SUBLINGUAL Q5M PRN #30 tab PRN Reason: Chest Pain lisinopriL [Zestril] 10 mg PO HS #30 tab Furosemide [Lasix] 40 mg PO DAILY #30 tab Atorvastatin [Lipitor] 80 mg PO HS #30 tab Metoprolol Tartrate [Lopressor] 25 mg PO BID #60 tab lisinopriL [Zestril] 20 mg PO DAILY #30 tab Discharge Medication List Aspirin [Adult Low Dose Aspirin EC] 81 mg PO DAILY #30 tab 11/11/22 [Rx] Atorvastatin [Lipitor] 80 mg PO HS #30 tab 11/11/22 [Rx] Furosemide [Lasix] 40 mg PO DAILY #30 tab 11/11/22 [Rx] Metoprolol Tartrate [Lopressor] 25 mg PO BID #60 tab 11/11/22 [Rx] Nitroglycerin Sl Tabs [Nitrostat] 0.4 mg SUBLINGUAL Q5M PRN #30 tab 11/11/22 [Rx] Prasugrel [Effient] 10 mg PO DAILY #30 tab 11/11/22 [Rx] Spironolactone [Aldactone] 25 mg PO DAILY #30 tab 11/11/22 [Rx] lisinopriL [Zestril] 10 mg PO HS #30 tab 11/11/22 [Rx] lisinopriL [Zestril] 20 mg PO DAILY #30 tab 11/11/22 [Rx] Follow up Appointment(s)/Referral(s): Jonn Anaya MD [STAFF PHYSICIAN] - 1 Week Kodak Joyner MD [REFERRING] - 1 Week Patient Instructions/Handouts: *Surgery [facility] - After Heart Catheterization - Release Of Information Clerk Instructions, Heart Attack (DC), Heart Healthy Diet (ED), After Radial Heart Catheterization (GEN) Activity/Diet/Wound Care/Special Instructions: Patient to discharge to self care. He will stay with his daughter upon discharge. Diet: Cardiac Follow up with PCP within 1-2 days of discharge. Follow up with Cardiology within 1 week of discharge. Take all medications as advised. Come back to the ED for chest pain, shortness of breath, palpitations, dizziness. Discharge/Stand Alone Forms: Who Do I Call?, Help In The Home Discharge Disposition: HOME SELF-CARE
[2022-11-11 20:11] VITALS: BP 106/74; PULSE 63; RESP 16; TEMP 98.8
== END 2022-11-11 18:12 | disposition home or self-care (01) | DRG 246 ==
LOC: EC 19:18 → 2SICU 20:01
PROVIDERS: ADMIT Internal Medicine; ATTEND Internal Medicine
PROC: 3E043XZ Introduction of Vasopressor into Central Vein, Percutaneous Approach (ICD-10-PCS; 2022-11-06)
PROC: B2161ZZ Fluoroscopy of Right and Left Heart using Low Osmolar Contrast (ICD-10-PCS; principal; 2022-11-06 19:34)
PROC: B2111ZZ Fluoroscopy of Multiple Coronary Arteries using Low Osmolar Contrast (ICD-10-PCS; principal; 2022-11-06 19:34)
PROC: 027035Z Dilation of Coronary Artery, One Artery with Two Drug-eluting Intraluminal Devices, Percutaneous Approach (ICD-10-PCS; principal; 2022-11-06 19:34)
PROC: 4A023N7 Measurement of Cardiac Sampling and Pressure, Left Heart, Percutaneous Approach (ICD-10-PCS; 2022-11-06 19:34)
PROC: 5A1935Z Respiratory Ventilation, Less than 24 Consecutive Hours (ICD-10-PCS; 2022-11-06 19:34)
PROC: 0BH17EZ Insertion of Endotracheal Airway into Trachea, Via Natural or Artificial Opening (ICD-10-PCS; 2022-11-06 19:34)
PROC: 0D9670Z Drainage of Stomach with Drainage Device, Via Natural or Artificial Opening (ICD-10-PCS; 2022-11-07)
DX: I21.09 ST elevation (STEMI) myocardial infarction involving other coronary artery of anterior wall (principal); I46.2 Cardiac arrest due to underlying cardiac condition; I49.01 Ventricular fibrillation; J96.01 Acute respiratory failure with hypoxia; J96.02 Acute respiratory failure with hypercapnia; R57.0 Cardiogenic shock; Z68.43 Body mass index [BMI] 50.0-59.9, adult; N17.9 Acute kidney failure, unspecified; E87.20 Acidosis, unspecified; J44.9 Chronic obstructive pulmonary disease, unspecified; E11.9 Type 2 diabetes mellitus without complications; E66.9 Obesity, unspecified; R74.01 Elevation of levels of liver transaminase levels; I25.10 Atherosclerotic heart disease of native coronary artery without angina pectoris; I49.3 Ventricular premature depolarization; I34.0 Nonrheumatic mitral (valve) insufficiency; Z87.891 Personal history of nicotine dependence; Z79.899 Other long term (current) drug therapy; D72.829 Elevated white blood cell count, unspecified; E87.6 Hypokalemia; Z79.82 Long term (current) use of aspirin
CPT/HCPCS: 31500; 36415; 36600; 71045; 80048; 80053; 80061; 80306; 81001; 82805; 83036; 83605; 83735; 83880; 84132; 84145; 84484; 85025; 85027; 85610; 85730; 87040; 87070; 87205; 92978; 93306; 93458; 94640; 96365; 96375; 99291

== ENCOUNTER → 2023-04-28 | Day surgery (SDC) | payer BC ==
[2023-04-26 16:02] VITALS: BMI 42.0
[~2023-04-28] MED LIST changes: +ALPRAZolam 0.25 MG TAB PO PRN; +ALPRAZolam 0.5 MG TAB PO PRN; +ASPIRIN 325 MG TAB PO ONE; +ASPIRIN 81 MG PO SCH; +ATORVASTATIN 80 MG TAB PO ONE; +ATORVASTATIN 80 MG TAB PO SCH; +DAPAGLIFLOZIN PROPANEDIOL 10 MG TABLET PO SCH; +HEPARIN SODIUM,PORCINE (1 ML) 2,500 UNIT in SODIUM CHLORIDE 0.9% 250 ML IRRIGATION PRN; +HEPARIN SODIUM,PORCINE 10,000 UNIT in SODIUM CHLORIDE 0.9% 1,000 ML IRRIGATION PRN; +IOPAMIDOL-370 100ML BTL INJ ONE; +MD COMMUNICATION TO PHARMACY 1 EACH MISC PO ONE; +METOPROLOL TARTRATE 25 MG TAB PO SCH; -METOPROLOL TARTRATE 5 MG/5 ML VIAL IVP ONE; +MIDAZOLAM 2 MG/2 ML VIAL IVP ONE; +NITROGLYCERIN SL TABS 0.4 MG TAB SUBLINGUAL PRN; -PRASUGREL 10 MG TAB NG-TUBE ONE; +RX INFO: IV CONTRAST WAS GIVEN 1 EACH MISC MISCELLANE PRN; +SODIUM CHLORIDE 0.9% 1,000 ML IV SCH; +SODIUM CHLORIDE 0.9% 1,000 ML in EMPTY BAG 1 BAG IV SCH; +SPIRONOLACTONE 25 MG TAB PO SCH; +VERAPAMIL SYRINGE (5 MG/10 ML) INTRAARTER ONE; +fentaNYL (PF) 50 MCG/ML 2 ML AMP IVP ONE; +lisinopriL 10 MG TAB PO SCH
[2023-04-28 08:47] VITALS: TEMP 98.8
[2023-04-28] MEDS: LIDOCAINE 1% INJ 10MG/ML (20 ML MDV) SQ ONE ×2 (09:23→09:33)
--- NOTE | 2023-04-28 10:22 | P.CARDCATH ---
Date of Procedure: 04/28/23 Description of Procedure: Cardiac Catheterization: The patient is a 53-year-old male with known history of hypertension and hyperlipidemia who presented in October with cardiac arrest and evidence of anterior wall myocardial infarction. Was found to have occluded proximal LAD and received 2 stents. He has been doing well until recently when he started to complain of chest and arm discomfort, exertional pattern. He had an abnormal MPI. Recommendations were made regarding cardiac catheterization, the risks and the complications were discussed with the patient who is in full understanding and agreement. Procedure Description: Patient was brought to blood and plasma laboratory assistant in fasting semi-sedated state after receiving Fentanyl and Benadryl achieiving moderate conscious sedated state. Using Xylocaine Anesthesia and Seldinger technique, a 6-Croatian sheath was introduced in the left radial artery . Attempts to cannulate the right radial artery was unsuccessful in advancing the wire. Subsequently, selective coronary angiography was performed using a 5-Croatian 4 bend Anish catheter. Multiple views of the coronary artery including hemiaxial views were obtained. The 5-Croatian pigtail catheter was used to cross the aortic valve and LVEDP was calculated. An LEON view of the left ventricle was obtained. Following that, catheter and sheath were removed. Hemostasis was obtained with deployment of TR band . There was no immediate complication. Patient was returned to room in stable condition. Of note, the patient received a total of 5000 units of intravenous heparin as well as intra-arterial verapamil. Findings: Left main: This is a short sized vessel, Bifurcating into LAD and left circumflex, left main has no obstructive disease LAD: This vessel is totally occluded proximally at the takeoff. There is ipsilateral collaterals feeding the midsegment and the diagonal branch. Left circumflex: This is a large size vessel, nondominant, giving rise to large proximal obtuse marginal branch, the left circumflex has no obstructive disease. RCA: This is a large dominant vessel, bifurcating distally to PDA and PLV, the RCA has no obstructive disease Left Ventriculogram: Performed in the 30 LEON view and revealed anteroapical hypokinesis, ejection fraction is 45-50%. There is no significant mitral reg urgitation. Hemodynamics: There was no gradient across the aortic valve, LVEDP was 6-10 mmHg Conclusion: 1. Total occlusion of the ostium of the LAD with ipsilateral collaterals 2. No obstructive disease in the left circumflex and the RCA 3. Mildly impaired left ventricular systolic function 4. Low left ventricle end-diastolic pressure Recommendations: In view of the anatomy and the total occlusion in addition to his prior history of recommended proceeding with evaluation for coronary artery bypass grafting to the LAD. The findings and the recommendations were discussed with the patient and the family and they were in full understanding and agreement. Duration of sedation is 43 minutes.
[2023-04-28 16:20] VITALS: BP 100/60; PULSE 68; RESP 16
--- NOTE | 2023-04-28 17:02 | XR ---
EXAMINATION TYPE: XR chest 2V DATE OF EXAM: 04/28/2023 4:58 PM COMPARISON: Chest radiographs from 11/09/2022 TECHNIQUE: XR chest 2V Frontal and lateral views of the chest. CLINICAL INDICATION:Male, 53 years old with history of PreOp Cardiac Surgery; FINDINGS: Lungs/Pleura: There is no evidence of pleural effusion, focal consolidation, or pneumothorax. Pulmonary vascularity: Unremarkable. Heart/mediastinum: Cardiomediastinal silhouette is unremarkable. Musculoskeletal: No acute osseous pathology. Mild degenerative changes of the thoracic spine. IMPRESSION: No acute cardiopulmonary disease/process.
[2023-04-28 17:06] LABS: Basophils % (A) 0 %; Eosinophils # (A) 0.2 k/uL (0-0.7); Eosinophils % (A) 2 %; HGB 14.8 gm/dL (13.0-17.5); Lymphocytes # (A) 2.3 k/uL (1.0-4.8); Lymphocytes % (A) 22 %; MCH 30.2 pg (25.0-35.0); MCHC 32.8 g/dL (31.0-37.0); MCV 92.2 fL (80.0-100.0); Monocytes # (A) 0.5 k/uL (0-1.0); Monocytes % (A) 5 %; Neutrophils # (A) 7.2 k/uL (1.3-7.7); Neutrophils % (A) 70 %; Platelet Count 291 k/uL (150-450); RBC 4.88 m/uL (4.30-5.90); RDW 12.3 % (11.5-15.5); WBC 10.3 k/uL (3.8-10.6)
[2023-04-28 17:10] LABS: Appearance,Urine Clear (Clear); Bilirubin,Urine Negative (Negative); Blood,Urine Negative (Negative); Color,Urine Colorless; Glucose,Urine (UA) 4+ (Negative); Ketones,Urine Negative (Negative); Leukocyte Esterase,Urine Negative (Negative); Nitrite,Urine Negative (Negative); PH, Urine 5.5 (5.0-8.0); Protein,Urine Negative (Negative); Specific Gravity,Urine 1.027 (1.001-1.035); Urobilinogen,Urine <2.0 mg/dL (<2.0)
[2023-04-28 17:21] LABS: INR 0.9 (<1.2); Partial Thromboplastin Time 25.7 sec (22.0-30.0)
[2023-04-28 17:23] LABS: ALT 32 U/L (4-49); AST 34 U/L (17-59); African American GFR (CKD) 72 (>60 ml/min/1.73 sqM); Albumin 4.1 g/dL (3.5-5.0); Alkaline Phosphatase 53 U/L (38-126); Anion Gap 8 mmol/L; Blood Urea Nitrogen 25 mg/dL (9-20); Calcium 9.4 mg/dL (8.4-10.2); Carbon Dioxide 24 mmol/L (22-30); Chloride 106 mmol/L (98-107); Glucose 113 mg/dL (74-99); Magnesium 2.1 mg/dL (1.6-2.3); Non-African American GFR(CKD) 62 (>60 ml/min/1.73 sqM); Potassium 4.8 mmol/L (3.5-5.1); Sodium 138 mmol/L (137-145); Total Bilirubin 0.5 mg/dL (0.2-1.3); Total Protein 7.4 g/dL (6.3-8.2)
--- NOTE | 2023-04-28 18:39 | US ---
EXAMINATION TYPE: US carotid duplex BILAT DATE OF EXAM: 04/28/2023 COMPARISON: NONE CLINICAL INDICATION: Male, 53 years old with history of PreOp Cardiac Surgery; preop TECHNIQUE: Carotid duplex ultrasound examination. Indirect Doppler criteria was utilized. FINDINGS: EXAM MEASUREMENTS: RIGHT: Peak Systolic Velocity (PSV) cm/sec ----- Right CCA: 120.0 ----- Right ICA: 104.2 ----- Right ECA: 69.1 ICA/CCA ratio: 0.9 RIGHT: End Diastole cm/sec ----- Right CCA: 9.7 ----- Right ICA: 9.7 ----- Right ECA: 9.8 LEFT: Peak Systolic Velocity (PSV) cm/sec ----- Left CCA: 132.3 ----- Left ICA: 93.5 ----- Left ECA: 54.7 ICA/CCA ratio: 0.7 LEFT: End Diastole cm/sec ----- Left CCA: 19.2 ----- Left ICA: 14.4 ----- Left ECA: 6.3 VERTEBRALS (direction of flow): Right Vertebral: Antegrade Left Vertebral: Antegrade Rhythm: Normal ONCOLOGY RESEARCH RN NOTES: No plaque seen bilaterally IMPRESSION: No ultrasound evidence for hemodynamically significant stenosis of the bilateral visualized carotid a rterial systems. Criteria for Assigning % of Stenosis / Diameter reduction (Estimation based on the indirect measurements of the internal carotid artery velocities (ICA PSV). 1. Normal (no stenosis)=ICA PSV < 125 cm/s: ratio < 2.0: ICA EDV<40 cm/s. 2. Less than 50% stenosis=ICA PSV < 125 cm/s: ratio < 2.0: ICA EDV<40 cm/s. 3. 50 to 69% stenosis=ICA PSV of 125 to 230 cm/s: ration 2.0 ? 4.0: ICA EDV 40-100 cm/s. 4. Greater than 70% stenosis to near occlusion= ICA PSV > 230 cm/s: ratio > 4.0: ICA EDV > 100 cm/s. 5. Near occlusion= ICA PSV velocities may be low or undetectable: variable ratio and ICA EDV. 6. Total occlusion=unable to detect flow.
--- NOTE | 2023-04-28 18:39 | US ---
EXAMINATION TYPE: US vein mapping BILAT DATE OF EXAM: 04/28/2023 5:23 PM COMPARISON: NONE CLINICAL INDICATION: Male, 53 years old with history of PreOp Cardiac Surgery; preop SIDE PERFORMED: Bilateral TECHNIQUE: Lower extremity saphenous vein is examined and measured utilizing real time linear array sonography. DUPLEX FINDINGS: Greater Saphenous: Color flow seen Lesser Saphenous: Color flow seen Measurements in mm: Right Greater Saphenous: Groin: 7.8 x 6.3 mm High Thigh: 7.8 x 7.3 mm Mid Thigh: 5.3 x 4.4 mm Above Knee: 4.1 x 3.7 mm Knee: mm Below Knee: 7.6 x 5.7 mm Mid Calf: 4.4 x 3.9 mm At Ankle: 4.4 x 3.2 mm Left Greater Saphenous: Groin: 8.5 x 8.0 mm High Thigh: 9.7 x 8.8 mm Mid Thigh: 4.2 x 3.7 mm Above Knee: 3.8 x 3.8 mm Knee: 3.0 x 2.4 mm Below Knee: 5.9 x 5.1 mm Mid Calf: 3.0 x 2.7 mm At Ankle: 2.6 x 2.1 mm Varicosities seen in bilateral knees and calves IMPRESSION: 1. Bilateral GSV measurements listed above. 2. Performing surgeon to determine viability as conduit.
--- NOTE | 2023-04-28 18:40 | US ---
EXAMINATION TYPE: Pre-Operative Non-Invasive Evaluation of the hand for Potential Radial Artery Mansoor , Measurements only DATE OF EXAM: 04/28/2023 5:23 PM CLINICAL INDICATION: Male, 53 years old with history of preop cardiac surgery; SIDE PERFORMED: Bilateral TECHNIQUE: Radial artery is measured utilizing real time linear array sonography. Dominant hand: Right Duplex Findings: Radial Artery: Color flow seen Measurements in mm, transverse view: Right Radial: mm Proximal: 3.9 x 2.3 mm Mid: 3.6 x 2.8 mm Distal: 4.0 x 3.8 mm Left Radial: mm Proximal: 4.3 x 4.2 Mid: 3.9 x 3.4 mm Distal: Not seen due to heart cath site IMPRESSION: 1. Bilateral radial artery measurements listed above. 2. Performing surgeon to determine viability as conduit.
--- NOTE | 2023-04-28 18:53 | P.GSCN ---
History of Present Illness Consult date: 04/28/23 Reason for Consult: Coronary artery disease, evaluation for myocardial revascularization surgery Requesting physician: Jonn Anaya History of present illness: This is a 53-year-old gentleman who is followed on an outpatient basis by Marianela VIGIL for his primary care and Dr. Anaya for his cardiology care. The patient has a past medical history significant for hypertension, hyperlipidemia, diabetes mellitus type 2, and recent acute myocardial infarction with cardiac arrest requiring ACLS with return of spontaneous circulation, he is status post stent placement to his left anterior descending coronary artery in October 2022. He also has a history of obesity, acute kidney injury in October 2022 and tobacco dependence in which he quit smoking in October. Since his stent placement in October, the patient has been on maximum medical therapy in which she has been compliant in taking his medications. The patient continues to have complaints of episodes of left arm and chest discomfort with physical activity. He denies any recent fever, chills, nausea, vomiting, weight gain, headache, hemoptysis, hematemesis, lightheadedness, claudication, presyncope or syncope. On 04/07/2023 the patient underwent a nuclear Lexiscan Cardiolite stress test which showed nondiagnostic electrocardiographic stress testing, abnormal myocardial perfusion imaging with a partially reversible anterior and anterior apical wall defect with segmental wall motion abnormality suggestive of stress-induced ischemia in the LAD territory. The patient also had a transthoracic 2-D echocardiogram done in November 2022 which showed a left ventricular size and systolic function to be normal with an ejection fraction of 50-55%, mild mitral valve regurgitation, mild tricuspid valve regurgitation and no pericardial effusion. Due to the patient's history of acute myocardial infarction, continued chest discomfort and left arm discomfort, and findings on the stress test he was recommended to undergo a cardiac catheterization which was completed today by Dr. Anaya. The cardiac catheterization demonstrated a total occlusion of the ostium of the left anterior descending coronary artery with ipsilateral collaterals, no obstructive disease in the left circumflex or RCA and mildly impaired left ventricular systolic function. Due to the findings on the cardiac catheterization a consult was placed Dr. Del Lanza from cardiothoracic surgery for further evaluation and treatment recommendations including myocardial revascularization. Review of Systems A 14 point review of systems was completed and was negative except as mentioned in the HPI. Past Medical History Past Medical History: Coronary Artery Disease (CAD), Chest Pain / Angina, Diabetes Mellitus, Hyperlipidemia, Hypertension, Myocardial Infarction (AL) Additional Past Medical History / Comment(s): CAME IN VIA EMS IN CARDIAC ARREST- WENT INTO V-FIB AND WAS INTUBATED 11/06/22 Last Myocardial Infarction Date:: 11/06/22 History of Any Multi-Drug Resistant Organisms: None Reported Past Surgical History: Heart Catheterization With Stent, Orthopedic Surgery Additional Past Surgical History / Comment(s): RT LITTLE FINGER REATTACHED Past Anesthesia/Blood Transfusion Reactions: No Reported Reaction Date of Last Stent Placement:: 11/06/22 Smoking Status: Former smoker - Past Family History Mother Family Medical History: Myocardial Infarction (AL) Medications and Allergies Home Medications Medication Instructions Recorded Confirmed Type Aspirin [Adult Low Dose Aspirin EC] 81 mg PO DAILY #30 tab 11/11/22 04/28/23 Rx Atorvastatin [Lipitor] 80 mg PO HS #30 tab 11/11/22 04/28/23 Rx Metoprolol Tartrate [Lopressor] 25 mg PO BID #60 tab 11/11/22 04/28/23 Rx Nitroglycerin Sl Tabs [Nitrostat] 0.4 mg SUBLINGUAL Q5M PRN #30 tab 11/11/22 04/26/23 Rx Spironolactone [Aldactone] 25 mg PO DAILY #30 tab 11/11/22 04/28/23 Rx lisinopriL [Zestril] 10 mg PO HS #30 tab 11/11/22 04/28/23 Rx Dapagliflozin Propanediol [Farxiga] 10 mg PO DAILY 04/26/23 04/28/23 History Allergies Allergy/AdvReac Type Severity Reaction Status Date / Time stainless steel Allergy Rash/Hives Uncoded 04/26/23 15:45 Surgical - Exam Vital Signs Temp Pulse Resp BP Pulse Ox 98.8 F 62 18 91/57 98 04/28/23 08:11 04/28/23 08:11 04/28/23 08:11 04/28/23 08:11 04/28/23 08:11 - General well developed, well nourished, no distress, no pain, obese - Eyes PERRL, normal ocular movement, no pale, no icteric - ENT normal pinna, normal nares, normal mucosa, no hearing loss, no congestion - Neck Neck is supple, no lymphadenopathy. no masses, no bruits, trachea midline, no venous distension - Respiratory Lung sounds are essentially clear throughout, no wheezes, rhonchi or crackles. Respirations are symmetrical and nonlabored. - Cardiovascular Regular rhythm and rate. S1 and S2 present, negative for S3, or gallop. Systolic murmur heard best at the base 2/6. - Abdomen Abdomen is soft, nontender and nondistended. Active bowel sounds present in all 4 abdominal quadrants. No guarding or rigidity. No organomegaly appreciated. - Genitourinary Deferred - Rectum Deferred - Integumentary Skin is warm and dry. No clubbing or cyanosis is present. no rash, no growths, no abnormal pigmentation - Neurologic No focal deficits. - Musculoskeletal Moves all 4 extremities with equal strength bilateral. - Psychiatric oriented to time, oriented to person, oriented to place, speech is normal, memory intact Results - Labs 04/28/23 16:26 04/28/23 16:26 Abnormal Lab Results - Last 24 Hours (Table) 04/28/23 04/28/23 Range/Units 15:00 16:26 BUN 25 H (9-20) mg/dL Creatinine 1.32 H (0.66-1.25) mg/dL Glucose 113 H (74-99) mg/dL Urine Glucose (UA) 4+ H (Negative) Diabetes panel 04/28/23 Range/Units 16:26 Sodium 138 (137-145) mmol/L Potassium 4.8 (3.5-5.1) mmol/L Chloride 106 (98-107) mmol/L Carbon Dioxide 24 (22-30) mmol/L BUN 25 H (9-20) mg/dL Creatinine 1.32 H (0.66-1.25) mg/dL Glucose 113 H (74-99) mg/dL Calcium 9.4 (8.4-10.2) mg/dL AST 34 (17-59) U/L ALT 32 (4-49) U/L Alkaline Phosphatase 53 (38-126) U/L Total Protein 7.4 (6.3-8.2) g/dL Albumin 4.1 (3.5-5.0) g/dL Thyroid panel 04/28/23 Range/Units 16:26 TSH 0.514 (0.465-4.680) mIU/L Calcium panel 04/28/23 Range/Units 16:26 Calcium 9.4 (8.4-10.2) mg/dL Albumin 4.1 (3.5-5.0) g/dL Pituitary panel 04/28/23 Range/Units 16:26 Sodium 138 (137-145) mmol/L Potassium 4.8 (3.5-5.1) mmol/L Chloride 106 (98-107) mmol/L Carbon Dioxide 24 (22-30) mmol/L BUN 25 H (9-20) mg/dL Creatinine 1.32 H (0.66-1.25) mg/dL Glucose 113 H (74-99) mg/dL Calcium 9.4 (8.4-10.2) mg/dL TSH 0.514 (0.465-4.680) mIU/L Adrenal panel 04/28/23 Range/Units 16:26 Sodium 138 (137-145) mmol/L Potassium 4.8 (3.5-5.1) mmol/L Chloride 106 (98-107) mmol/L Carbon Dioxide 24 (22-30) mmol/L BUN 25 H (9-20) mg/dL Creatinine 1.32 H (0.66-1.25) mg/dL Glucose 113 H (74-99) mg/dL Calcium 9.4 (8.4-10.2) mg/dL Total Bilirubin 0.5 (0.2-1.3) mg/dL AST 34 (17-59) U/L ALT 32 (4-49) U/L Alkaline Phosphatase 53 (38-126) U/L Total Protein 7.4 (6.3-8.2) g/dL Albumin 4.1 (3.5-5.0) g/dL - Imaging Additional studies: Cardiac catheterization results reviewed by Dr. Del Lanza. Assessment and Plan Assessment: Coronary artery disease [place] artery, status post PCI left anterior descending coronary artery in February 2023 History of ischemic cardiomyopathy, most recent transthoracic 2-D echocardiogram ejection fraction of 50-55% Hypertension History of cardiac arrest with ACLS and return of spontaneous circulation in October 2022 Hyperlipidemia Diabetes mellitus type 2 History of acute kidney injury in October 2022 Remote history of nicotine dependence, quit smoking in October 2022 Obesity with a BMI of 44.1 kg/m Plan: The patient was seen and examined in follow-up today 04/28/2023 in the extended stay unit with Dr. Lanza. His chart and diagnostics were reviewed. Dr. ocasio reviewed the findings on the cardiac catheterization films with the patient and his family members present at his bedside. Treatment options were discussed including myocardial revascularization surgery. Risks and benefits of surgery were discussed and knowing and understanding these risks the patient wished to proceed with the surgical option. Preoperative testing has been initiated as well as preoperative teaching. The patient has been instructed to stop his prasugrel. Continue to optimize medical management with aspirin, statin and beta jono. A 5 m walk test will be obtained once the patient is able to ambulate. Once the patient's preoperative testing has been obtained we will calculate an STS risk score which will be discussed with the patient. Medical management other comorbidities per primary care service and other consultants. Once the patient's preoperative testing has been obtained further discussions on timing of surgery will be had with the patient. Thank you Dr. Anaya for this consult and we will look for to working with you in the care of this patient. I have personally seen and examined the patient, performed the documentation and the assessment and plan as written. Number of minutes spent on the visit, 30 minutes . Anand WEINBERG
--- NOTE | 2023-04-28 21:24 | US ---
EXAMINATION TYPE: US arterial LE single level DATE OF EXAM: 04/28/2023 9:09 PM CLINICAL INDICATION: Male, 53 years old with history of Ankle Brachial Index (JOJO); JOJO Right Brachial Pressure: 116 Left Brachial Pressure: Deferred due to radial approach Ankle-Brachial Indices: Right: 1.05 Left: 1.05 Toe Brachial Indices: Unable to obtain due to machine malfunction Multiphasic waveforms bilaterally. IMPRESSION: Normal ankle-brachial indices bilaterally.
[2023-04-29 02:28] LABS: Hepatitis A Antibody IgM Nonreactive; Hepatitis B Core IgM Nonreactive; Hepatitis B Surface Antigen Nonreactive; Hepatitis C IgG Antibody Nonreactive
[2023-04-29 14:44] LABS: Chol/HDL Ratio 3.19 Ratio; LDL Cholesterol,Calculated 49.2 mg/dL (0.0-131.0)
== END | disposition home or self-care (01) ==
LOC: CATHCVL 07:35
PROVIDERS: ATTEND Internal Medicine Interventional Cardiology
DX: I25.10 Atherosclerotic heart disease of native coronary artery without angina pectoris (principal); I46.9 Cardiac arrest, cause unspecified; I10 Essential (primary) hypertension; E78.5 Hyperlipidemia, unspecified; E11.9 Type 2 diabetes mellitus without complications; F17.210 Nicotine dependence, cigarettes, uncomplicated; Z95.1 Presence of aortocoronary bypass graft; Z79.899 Other long term (current) drug therapy
CPT/HCPCS: 94150; 93458; 80061; 80053; 80074; 84443; 83735; 85025; 85610; 85730; 81003; 87070; 83036; 71046; 93930; 93970; 93922; 93880; C1769 ×3; C1894; J2250; J2001; J3010; J1644; Q9967

== ENCOUNTER 2023-05-10 05:38 | Inpatient (IN) | payer BC ==
[~2023-05-10 05:38] MED LIST changes: +ALBUMIN HUMAN 25% 50 ML IV ONE; +ALBUMIN HUMAN 5% 500 ML IVPB ONE; -ALPRAZolam 0.25 MG TAB PO PRN; -ALPRAZolam 0.5 MG TAB PO PRN; -ASPIRIN 81 MG PO SCH; +ATORVASTATIN 10 MG TAB PO ONE; -ATORVASTATIN 80 MG TAB PO ONE; -ATORVASTATIN 80 MG TAB PO SCH; +CALCIUM CHLORIDE 100 MG/ML 10 ML SYRINGE IV ONE; +CHLORHEXIDINE GLUCONATE 15 ML CUP MUCOUS MEM ONE; +CLEVIDIPINE BUTYRATE 25 MG in EMPTY BAG 1 BAG IV ONE; -DAPAGLIFLOZIN PROPANEDIOL 10 MG TABLET PO SCH; +ELECTROLYTE-A SOLUTION 1,000 ML with POTASSIUM CHLORIDE 100 MEQ, MAGNESIUM SULFATE 16 M... IV ONE; +ELECTROLYTE-A SOLUTION 1,000 ML with POTASSIUM CHLORIDE 40 MEQ, MAGNESIUM SULFATE 16 ME... IV ONE; -HEPARIN SODIUM,PORCINE (1 ML) 2,500 UNIT in SODIUM CHLORIDE 0.9% 250 ML IRRIGATION PRN; +HEPARIN SODIUM,PORCINE (1 ML) 5,000 UNIT in SODIUM CHLORIDE 0.9% 500 ML 500 ML IV ONE; -HEPARIN SODIUM,PORCINE 10,000 UNIT in SODIUM CHLORIDE 0.9% 1,000 ML IRRIGATION PRN; +INSULIN REGULAR 100 UNIT in SODIUM CHLORIDE 0.9% 100 ML IV ONE; -IOPAMIDOL-370 100ML BTL INJ ONE; +LACTATED RINGERS 1,000 ML IV ONE; +MAGNESIUM SULFATE 16.24 MEQ in EMPTY SYRINGE 1 SYR IV ONE; +MANNITOL 25% 12.5 GM/50 ML VIAL IV ONE; -MD COMMUNICATION TO PHARMACY 1 EACH MISC PO ONE; +METOPROLOL TARTRATE 12.5 MG TAB PO ONE; -METOPROLOL TARTRATE 25 MG TAB PO SCH; -MIDAZOLAM 2 MG/2 ML VIAL IVP ONE; +NITROGLYCERIN SL TABS 0.4 MG TAB SUBLINGUAL ONE; -NITROGLYCERIN SL TABS 0.4 MG TAB SUBLINGUAL PRN; +NITROGLYCERIN-D5W PMX 25 MG/250 ML BTL IV ONE; +NITROGLYCERIN-D5W PMX 50 MG in DEXTROSE/WATER 1 250ML.BAG IV ONE; +NOREPINEPHRINE 4 MG in SODIUM CHLORIDE 0.9% 250 ML IV ONE; +PAPAVERINE 360 MG in SODIUM CHLORIDE 0.9% 90 ML IV ONE; +PHENYLEPHRINE 10 MG/ML VIAL IV ONE; +PHENYLEPHRINE 40 MG in SODIUM CHLORIDE 0.9% 250 ML IV ONE; +PROTAMINE SULFATE 10 MG/ML 25 ML VIAL IV ONE; +PROTAMINE SULFATE 250 MG in EMPTY BAG 1 BAG IV ONE; -RX INFO: IV CONTRAST WAS GIVEN 1 EACH MISC MISCELLANE PRN; +SODIUM BICARB 8.4% 50 ML SYR (1 MEQ/ML) IV ONE; +SODIUM CHLORIDE 0.9% 1,000 ML IV ONE; -SODIUM CHLORIDE 0.9% 1,000 ML IV SCH; -SODIUM CHLORIDE 0.9% 1,000 ML in EMPTY BAG 1 BAG IV SCH; -SPIRONOLACTONE 25 MG TAB PO SCH; +TRANEXAMIC ACID 2,000 MG in SODIUM CHLORIDE 0.9% 80 ML IV ONE; -VERAPAMIL SYRINGE (5 MG/10 ML) INTRAARTER ONE; +ceFAZolin 1,000 MG in SODIUM CHLORIDE 0.9% IRRIGATIO 1,000 ML IRRIGATION ONE; +ceFAZolin 3 GM in SODIUM CHLORIDE 0.9% 100 ML IVPB ONE; -fentaNYL (PF) 50 MCG/ML 2 ML AMP IVP ONE; -lisinopriL 10 MG TAB PO SCH; +propofoL 1,000 MG/100 ML VIAL IV ONE
[2023-05-10] MEDS ORDERED: SUCCINYLCHOLINE CHLORIDE 200 MG/10 ML VIAL IV ONE (08:16)
[2023-05-10] MEDS ORDERED: INSULIN REGULAR 100 UNIT/ML VIAL (IV) ONE (08:16)
[2023-05-10] MEDS ORDERED: PROPOFOL 10 MG/ML 20 ML VIAL IV ONE (08:16)
[2023-05-10] MEDS ORDERED: HEPARIN SODIUM,PORCINE 5,000 UNIT/ML 1 ML VIAL ONE (08:16)
[2023-05-10] MEDS ORDERED: MIDAZOLAM HCL 10 MG/10 ML VIAL ONE (08:16)
[2023-05-10] MEDS ORDERED: NITROGLYCERIN-D5W PMX 50 MG/250 ML BOTTLE IV ONE (08:16)
[2023-05-10] MEDS ORDERED: LIDOCAINE 2% INJ 20 MG/ML (2 ML VIAL) ONE (08:16)
[2023-05-10] MEDS ORDERED: VECURONIUM 10 MG VIAL IV ONE (08:16)
[2023-05-10] MEDS ORDERED: fentaNYL (PF) 50 MCG/ML 50 ML VIAL ONE (08:16)
[2023-05-10] MEDS ORDERED: HEPARIN SODIUM,PORCINE 10,000 UNIT/ML 1 ML VIAL ONE (08:16)
[2023-05-10] MEDS ORDERED: AMIODARONE 200 MG TAB ONE (08:16)
[2023-05-10] MEDS ORDERED: PROTAMINE SULFATE 10 MG/ML 5 ML VIAL ONE (08:16)
[2023-05-10] MEDS ORDERED: ALBUMIN HUMAN 5% (12.5gm) 250 ML BOTTLE IVPB ONE (08:16)
[2023-05-10] MEDS ORDERED: hydrALAZINE HCL 20 MG/ML 1 ML VIAL IVP PRN (12:23)
[2023-05-10] MEDS ORDERED: CALCIUM GLUCONATE IN NACL 2 GM in SALINE 1 100ML.BAG IVPB PRN (12:23)
[2023-05-10] MEDS ORDERED: ASPIRIN 300 MG SUPP RECTAL ONE (12:23)
[2023-05-10] MEDS ORDERED: ONDANSETRON 4 MG/2 ML VIAL IVP PRN (12:23)
[2023-05-10] MEDS ORDERED: DEXTROSE 5% IN WATER 100 ML with AMIODARONE 150 MG IV PRN (12:23)
[2023-05-10] MEDS ORDERED: MORPHINE SULFATE 2 MG/ML SYRINGE IVP PRN (12:23)
[2023-05-10] MEDS ORDERED: AMIODARONE 360 MG in DEXTROSE 5% IN WATER 200 ML IV PRN ×2 (12:23)
[2023-05-10] MEDS ORDERED: ALBUMIN HUMAN 5% 250 ML in EMPTY BAG 1 BAG IVPB PRN (12:23)
[2023-05-10] MEDS ORDERED: IPRATROPIUM-ALBUTEROL 3 ML NEB INHALATION PRN (12:23)
[2023-05-10] MEDS ORDERED: DEXMEDETOMIDINE/0.9% NACL(PMX) 400 MCG in EMPTY BAG 1 BAG IV SCH (12:23)
[2023-05-10] MEDS ORDERED: METOCLOPRAMIDE 5 MG/ML 2 ML VIAL IVP PRN (12:23)
[2023-05-10] MEDS ORDERED: ALPRAZolam 0.25 MG TAB PO PRN (12:23)
[2023-05-10] MEDS ORDERED: BENZOCAINE/MENTHOL LOZENG 1 EACH LOZENGE MUCOUS MEM PRN (12:23)
[2023-05-10] MEDS ORDERED: Magnesium Replacement Protocol 1 EACH MISC MISCELLANE PRN (12:23)
[2023-05-10] MEDS ORDERED: DEXTROSE 50% SYRINGE 50 ML IVP PRN ×2 (12:23)
[2023-05-10] MEDS ORDERED: Potassium Replacement Protocol 1 EACH MISC MISCELLANE PRN (12:23)
[2023-05-10] MEDS ORDERED: NITROGLYCERIN-D5W PMX 50 MG in DEXTROSE/WATER 1 250ML.BAG IV SCH (12:23)
[2023-05-10 12:42] LABS: Glucose,Whole Blood 162 mg/dL (70-110)
[2023-05-10] MEDS: INSULIN REGULAR 100 UNIT in SODIUM CHLORIDE 0.9% 100 ML IV SCH (12:53)
[2023-05-10 12:59] LABS: Basophils % (A) 0 %; Eosinophils # (A) 0.1 k/uL (0-0.7); Eosinophils % (A) 0 %; HCT 41.7 % (39.0-53.0); HGB 13.6 gm/dL (13.0-17.5); Lymphocytes % (A) 11 %; MCH 30.2 pg (25.0-35.0); MCHC 32.5 g/dL (31.0-37.0); MCV 92.7 fL (80.0-100.0); Mean Platelet Volume 7.4; Monocytes # (A) 1.1 k/uL (0-1.0); Monocytes % (A) 6 %; Neutrophils # (A) 15.3 k/uL (1.3-7.7); Neutrophils % (A) 83 %; Platelet Count 243 k/uL (150-450); RDW 12.1 % (11.5-15.5); WBC 18.5 k/uL (3.8-10.6)
[2023-05-10 13:01] LABS: ABG HCO3 24 mmol/L (21-25); ABG Oxygen Saturation 98.7 % (94-97); ABG PCO2 48 mmHg (35-45); ABG PO2 307 mmHg (83-108); ABG TCO2 25 mmol/L (19-24)
[2023-05-10 13:02] LABS: ALT 59 U/L (4-49); AST 33 U/L (17-59); African American GFR (CKD) 66 (>60 ml/min/1.73 sqM); Albumin 3.9 g/dL (3.5-5.0); Alkaline Phosphatase 54 U/L (38-126); Anion Gap 10 mmol/L; Blood Urea Nitrogen 26 mg/dL (9-20); Calcium 8.6 mg/dL (8.4-10.2); Carbon Dioxide 21 mmol/L (22-30); Chloride 105 mmol/L (98-107); Glucose 168 mg/dL (74-99); Magnesium 2.4 mg/dL (1.6-2.3); Non-African American GFR(CKD) 57 (>60 ml/min/1.73 sqM); Potassium 4.3 mmol/L (3.5-5.1); Sodium 136 mmol/L (137-145); Total Bilirubin 0.6 mg/dL (0.2-1.3); Total Protein 6.9 g/dL (6.3-8.2)
[2023-05-10 13:03] LABS: Allen Test Performed? no
[2023-05-10 13:11] LABS: Partial Thromboplastin Time 29.8 sec (22.0-30.0); Prothrombin Time 10.4 sec (9.0-12.0)
[2023-05-10] MEDS: CLEVIDIPINE BUTYRATE 25 MG in EMPTY BAG 1 BAG IV SCH ×5 (13:15→23:24)
[2023-05-10 13:24] LABS: Glucose,Whole Blood 185 mg/dL (70-110)
--- NOTE | 2023-05-10 13:26 | XR ---
EXAMINATION TYPE: XR chest 1V portable DATE OF EXAM: 05/10/2023 HISTORY: Post Operative Cardiac Surgery COMPARISON: 03/29/2023 TECHNIQUE: Single view of the chest is submitted. FINDINGS: Endotracheal tube is well-positioned with its distal tip approximately 9.4 cm from the mica. [place]-G anz catheter is noted to be in place. Left atrial clip is identified. Left basilar catheter is again noted as well as a right basilar catheter. Post operative changes of CABG. No sizeable pneumothorax. Scattered Pleural-parenchymal opacities may reflect atelectasis. The heart mildly enlarged. IMPRESSION: 1. Post operative changes of CABG.
[2023-05-10] MEDS: SODIUM CHLORIDE 0.9% 1,000 ML IV SCH (13:31)
[2023-05-10 13:40] LABS: Ionized Calcium 4.7 mg/dL (4.5-5.3)
--- NOTE | 2023-05-10 14:04 | P.CONS ---
History of Present Illness - Reason for Consult Consult date: 05/10/23 - History of Present Illness Patient is a 53-year-old male with history of CAD status post stent, recent c ardiac arrest, type 2 diabetes, hypertension, systolic heart failure, dyslipidemia presenting for elective CABG. [facility] physicians has been consulted for medical management. Patient is currently in medical ICU. Intubated and sedated. Pertinent positives and negatives as discussed in HPI, a complete review of systems was performed and all other systems are negative. Patient seen and examined at bedside. [] Vital signs reviewed General: nontoxic, no distress, appears at stated age, intubated and sedated Derm: warm, dry, [address], sternal dressing in place Head: atraumatic, normocephalic, symmetric Eyes: Anicteric sclera ENT: Nose and ears atraumatic Neck: No thyromegaly Mouth: no lip lesion, mucus membranes moist Cardiovascular: S1S2 reg, no murmur, no edema Lungs: clear to auscultation bilateral, no rhonchi, no rales, no wheeze, no accessory muscle use, intubated Abdominal: soft, nontender to palpation, no guarding, no appreciable organomegaly Ext: no gross muscle atrophy, muscle strength muscle strength 5 out of 5 in all 4 extremities, no contractures Neuro: Sedated Psych: Unable to assess Assessment/Plan: Status post CABG History of CAD History of cardiac arrest Type 2 diabetes Hypertension History of systolic heart failure Dyslipidemia Leukocytosis, expected outcome of surgery Chronic kidney disease stage 2-3 -Currently on aspirin, statin, Plavix -Cardiology and ICU also consulted -Chest x-ray independently interpreted, no evidence of pneumothorax -Continue insulin drip while patient remains intubated -We'll consider switching over to sliding scale insulin once oral intake increases -Strict I's and O's -Continue monitoring CBC and CMP -Rest of the care per primary surgical service Thank you for allowing us to participate in the care of this pleasant patient. Do not hesitate to contact us with questions. Someone can be reached from the [facility] hospitalist group all hours of the day at [phone] or via [employer]. Past Medical History Past Medical History: Coronary Artery Disease (CAD), Chest Pain / Angina, Diab etes Mellitus, Hyperlipidemia, Hypertension, Myocardial Infarction ([place]) Additional Past Medical History / Comment(s): CAME IN VIA EMS IN CARDIAC ARREST- WENT INTO V-FIB AND WAS INTUBATED 11/06/22 Last Myocardial Infarction Date:: 11/06/22 History of Any Multi-Drug Resistant Organisms: None Reported Past Surgical History: Heart Catheterization With Stent, Orthopedic Surgery Additional Past Surgical History / Comment(s): RT LITTLE FINGER REATTACHED Past Anesthesia/Blood Transfusion Reactions: No Reported Reaction Date of Last Stent Placement:: 11/06/22 Smoking Status: Former smoker - Past Family History Mother Family Medical History: Myocardial Infarction ([place]) Medications and Allergies Home Medications Medication Instructions Recorded Confirmed Type Aspirin [Adult Low Dose Aspirin EC] 81 mg PO DAILY #30 tab 11/11/22 05/10/23 Rx Atorvastatin [Lipitor] 80 mg PO HS #30 tab 11/11/22 05/10/23 Rx Nitroglycerin Sl Tabs [Nitrostat] 0.4 mg SUBLINGUAL Q5M PRN #30 tab 11/11/22 05/06/23 Rx Spironolactone [Aldactone] 25 mg PO DAILY #30 tab 11/11/22 05/10/23 Rx lisinopriL [Zestril] 10 mg PO HS #30 tab 11/11/22 05/10/23 Rx Dapagliflozin Propanediol [Farxiga] 10 mg PO DAILY 04/26/23 05/10/23 History Metoprolol Tartrate [Lopressor] 25 mg PO QAM 05/06/23 05/10/23 History Allergies Allergy/AdvReac Type Severity Reaction Status Date / Time stainless steel Allergy Rash/Hives Uncoded 05/06/23 11:54 Physical Exam Vitals: Vital Signs Temp Pulse Pulse Resp BP BP Pulse Ox 05/10/23 13:30 92 24 93 L 05/10/23 13:20 83 05/10/23 13:10 84 05/10/23 13:05 05/10/23 13:00 97.2 F L 05/10/23 12:50 78 05/10/23 12:40 77 14 05/10/23 12:30 96.8 F L 81 05/10/23 12:29 80 05/10/23 12:28 05/10/23 12:17 05/10/23 05:50 96.9 F L 69 18 122/59 122/63 97 FiO2 05/10/23 13:30 50 05/10/23 13:20 05/10/23 13:10 05/10/23 13:05 50 05/10/23 13:00 05/10/23 12:50 05/10/23 12:40 100 05/10/23 12:30 05/10/23 12:29 05/10/23 12:28 100 05/10/23 12:17 100 05/10/23 05:50 Intake and Output 05/09/23 05/10/23 05/10/23 22:59 06:59 14:59 Intake Total 100 157.580 Output Total 1100 Balance 100 -942.420 Intake: IV 100 103 Intake, IV Titration 54.580 Amount Clevidipine Butyrate 25 0.300 mg In Empty Bag 1 bag @ 1 MG/HR 2 mls/hr IV .Q24H [facility] Rx#:[id number] Insulin Regular 100 unit 1.515 In Sodium Chloride 0.9% 100 ml @ Per Protocol IV .Q0M [facility] Rx#:[id number] propofoL 1,000 mg In 52.765 Empty Bag 1 bag @ Titrate IV .Q0M [facility] Rx#: [id number] Output: Urine 850 Estimated Blood Loss 250 Other: Weight 147.8 kg ABP, PAP, CO, CI - Last 8 Hours Arterial Blood Pressure 141/60 Arterial Blood Pressure 164/73 Arterial Blood Pressure 169/74 Arterial Blood Pressure 158/73 Arterial Blood Pressure 143/68 Arterial Blood Pressure 142/67 Pulmonary Artery Pressure 35/30 Pulmonary Artery Pressure 41/25 Pulmonary Artery Pressure 37/27 Pulmonary Artery Pressure 40/27 Pulmonary Artery Pressure 36/26 Pulmonary Artery Pressure 39/24 Cardiac Output 9.1 Cardiac Output 8.3 Cardiac Index 3.5 Cardiac Index 3.2 Results CBC & Chem 7: 05/10/23 12:32 05/10/23 12:32 Labs: Abnormal Lab Results - Last 24 Hours (Table) 05/07/23 05/10/23 05/10/23 Range/Units 08:24 12:32 12:32 WBC 18.5 H (3.8-10.6) k/uL Neutrophils # 15.3 H (1.3-7.7) k/uL Monocytes # 1.1 H (0-1.0) k/uL ABG pH (7.35-7.45) ABG pCO2 (35-45) mmHg ABG pO2 (83-108) mmHg ABG Total CO2 (19-24) mmol/L ABG O2 Saturation (94-97) % Sodium 136 L (137-145) mmol/L Carbon Dioxide 21 L (22-30) mmol/L BUN 26 H (9-20) mg/dL Creatinine 1.42 H (0.66-1.25) mg/dL Glucose 168 H (74-99) mg/dL POC Glucose (mg/dL) (70-110) mg/dL Magnesium 2.4 H (1.6-2.3) mg/dL ALT 59 H (4-49) U/L Crossmatch See Detail 05/10/23 05/10/23 05/10/23 Range/Units 12:41 12:59 13:22 WBC (3.8-10.6) k/uL Neutrophils # (1.3-7.7) k/uL Monocytes # (0-1.0) k/uL ABG pH 7.30 L (7.35-7.45) ABG pCO2 48 H (35-45) mmHg ABG pO2 307 H (83-108) mmHg ABG Total CO2 25 H (19-24) mmol/L ABG O2 Saturation 98.7 H (94-97) % Sodium (137-145) mmol/L Carbon Dioxide (22-30) mmol/L BUN (9-20) mg/dL Creatinine (0.66-1.25) mg/dL Glucose (74-99) mg/dL POC Glucose (mg/dL) 162 H 185 H (70-110) mg/dL Magnesium (1.6-2.3) mg/dL ALT (4-49) U/L Crossmatch
[2023-05-10 14:10] LABS: Glucose,Whole Blood 195 mg/dL (70-110)
[2023-05-10 15:00] LABS: Glucose,Whole Blood 206 mg/dL (70-110)
[2023-05-10 15:33] LABS: ABG Base Excess -5.8 mmol/L; ABG HCO3 20 mmol/L (21-25); ABG Oxygen Saturation 94.7 % (94-97); ABG PCO2 36 mmHg (35-45); ABG PH 7.35 (7.35-7.45); ABG PO2 77 mmHg (83-108); ABG TCO2 21 mmol/L (19-24)
[2023-05-10 15:34] LABS: Allen Test Performed? no
[2023-05-10] MEDS ORDERED: IPRATROPIUM-ALBUTEROL 3 ML NEB INHALATION SCH (16:00)
[2023-05-10 16:15] LABS: Glucose,Whole Blood 229 mg/dL (70-110)
[2023-05-10 16:20] LABS: Basophils % (A) 0 %; Eosinophils % (A) 0 %; HCT 46.2 % (39.0-53.0); HGB 14.8 gm/dL (13.0-17.5); Lymphocytes # (A) 1.1 k/uL (1.0-4.8); Lymphocytes % (A) 7 %; MCH 29.7 pg (25.0-35.0); MCHC 32.1 g/dL (31.0-37.0); MCV 92.8 fL (80.0-100.0); Mean Platelet Volume 7.1; Monocytes # (A) 0.6 k/uL (0-1.0); Monocytes % (A) 4 %; Neutrophils # (A) 15.2 k/uL (1.3-7.7); Neutrophils % (A) 89 %; Platelet Count 274 k/uL (150-450); RBC 4.98 m/uL (4.30-5.90); RDW 11.9 % (11.5-15.5); WBC 17.1 k/uL (3.8-10.6)
[2023-05-10] MEDS: HEPARIN SODIUM,PORCINE 5,000 UNIT/ML 1 ML VIAL SQ SCH ×2 (16:27→23:08)
[2023-05-10] MEDS: ceFAZolin 3 GM in SODIUM CHLORIDE 0.9% 100 ML IVPB SCH (16:29)
[2023-05-10 17:00] LABS: Glucose,Whole Blood 202 mg/dL (70-110)
[2023-05-10] MEDS: ACETAMINOPHEN IV (For NPO) 1,000 MG in EMPTY BAG 1 BAG IVPB SCH ×2 (17:07→23:08)
[2023-05-10] MEDS: AMIODARONE 450 MG in DEXTROSE 5% IN WATER 250 ML IV PRN ×2 (17:36)
--- NOTE | 2023-05-10 17:36 | P.CNPUL ---
History of Present Illness Consult date: 05/10/23 Chief complaint: Bypass surgery History of present illness: 53-year-old male patient post bypass surgery. The patient underwent elective coronary artery bypass surgery with LUCERO to LAD. The patient is currently in the intensive care unit, intubated on a mechanical ventilator. The patient was seen in the ICU. The patient is currently on propofol running at 60 mcg/kg/m. The blood pressure is elevated and the patient is currently on chiropractic's at 8 mg an hour. Hemodynamic parameters included a cardiac output of 9.1 with an index of 3.5. PA pressures of 42/26. The patient is producing adequate amount of urine output. The patient has a left pleural and mediastinal chest tube, output has been 100 mL of bloody output from each chest tube. The chest x-ray showed adequate expansion of both lungs. ET tube and [place]-Victor Manuel catheter in good location. The patient is calm and comfortable and 6 is a mechanical ventilator. The blood gases were done on assist-control mode of 14, tidal volume of 600, FiO2 of 100% and a PEEP of 10 showed a pH of 7.29 with a pCO2 of 47 and pO2 of 307. FiO2 was dropped down to 50%. The patient is known to have CAD, previous cardiac arrest, diabetes mellitus type 2, systolic heart failure, hyperlipidemia and hypertension. Preoperative cardiac catheterization showed LAD disease that was totally occluded. The patient had also collaterals. No disease involving the circumflex or RCA. LV was mildly impaired. Review of Systems ROS unobtainable: due to endotracheal tube Past Medical History Past Medical History: Coronary Artery Disease (CAD), Chest Pain / Angina, Diabetes Mellitus, Hyperlipidemia, Hypertension, Myocardial Infarction ([place]) Additional Past Medical History / Comment(s): CAME IN VIA EMS IN CARDIAC ARREST- WENT INTO V-FIB AND WAS INTUBATED 11/06/22 Last Myocardial Infarction Date:: 11/06/22 History of Any Multi-Drug Resistant Organisms: None Reported Past Surgical History: Heart Catheterization With Stent, Orthopedic Surgery Additional Past Surgical History / Comment(s): RT LITTLE FINGER REATTACHED Past Anesthesia/Blood Transfusion Reactions: No Reported Reaction Date of Last Stent Placement:: 11/06/22 Smoking Status: Former smoker - Past Family History Mother Family Medical History: Myocardial Infarction ([place]) Medications and Allergies Home Medications Medication Instructions Recorded Confirmed Type Aspirin [Adult Low Dose Aspirin EC] 81 mg PO DAILY #30 tab 11/11/22 05/10/23 Rx Atorvastatin [Lipitor] 80 mg PO HS #30 tab 11/11/22 05/10/23 Rx Nitroglycerin Sl Tabs [Nitrostat] 0.4 mg SUBLINGUAL Q5M PRN #30 tab 11/11/22 05/06/23 Rx Spironolactone [Aldactone] 25 mg PO DAILY #30 tab 11/11/22 05/10/23 Rx lisinopriL [Zestril] 10 mg PO HS #30 tab 11/11/22 05/10/23 Rx Dapagliflozin Propanediol [Farxiga] 10 mg PO DAILY 04/26/23 05/10/23 History Metoprolol Tartrate [Lopressor] 25 mg PO QAM 05/06/23 05/10/23 History Allergies Allergy/AdvReac Type Severity Reaction Status Date / Time stainless steel Allergy Rash/Hives Uncoded 05/06/23 11:54 Physical Exam Vitals: Vital Signs Temp Pulse Pulse Resp BP BP Pulse Ox 05/10/23 16:00 82 96 05/10/23 15:30 100 05/10/23 15:05 05/10/23 15:00 98.2 F 96 20 94 L 05/10/23 14:30 100 24 94 L 05/10/23 14:00 97.9 F 93 24 98 05/10/23 13:30 92 24 93 L 05/10/23 13:20 83 05/10/23 13:10 84 05/10/23 13:05 05/10/23 13:00 97.2 F L 05/10/23 12:50 78 05/10/23 12:40 77 14 05/10/23 12:30 96.8 F L 81 05/10/23 12:29 80 05/10/23 12:28 05/10/23 12:17 05/10/23 05:50 96.9 F L 69 18 122/59 122/63 97 FiO2 05/10/23 16:00 05/10/23 15:30 05/10/23 15:05 50 05/10/23 15:00 05/10/23 14:30 05/10/23 14:00 50 05/10/23 13:30 50 05/10/23 13:20 05/10/23 13:10 05/10/23 13:05 50 05/10/23 13:00 05/10/23 12:50 05/10/23 12:40 100 05/10/23 12:30 100 05/10/23 12:29 05/10/23 12:28 100 05/10/23 12:17 100 05/10/23 05:50 Intake and Output 05/10/23 05/10/23 05/10/23 06:59 14:59 22:59 Intake Total 100 509.401 234.949 Output Total 1640 285 Balance 100 -1130.599 -50.051 Intake: IV 100 370 178 0.9 150 100 co/ci 90 60 pressure bags 27 18 Intake, IV Titration 139.401 56.949 Amount Clevidipine Butyrate 25 25.900 17.667 mg In Empty Bag 1 bag @ 1 MG/HR 2 mls/hr IV .Q24H [facility] Rx#:[id number] Dexmedetomidine/0.9% NaCl 10.1 (Pmx) 400 mcg In Empty Bag 1 bag @ Titrate IV . Q0M [facility] Rx#:[id number] Insulin Regular 100 unit 4.276 18.836 In Sodium Chloride 0.9% 100 ml @ Per Protocol IV .Q0M [facility] Rx#:[id number] propofoL 1,000 mg In 109.225 10.346 Empty Bag 1 bag @ Titrate IV .Q0M [facility] Rx#: [id number] Output: Chest Tube Drainage [address] 130 50 Urine 1120 225 Estimated Blood Loss 250 Other: Voiding Method Indwelling Catheter Indwelling Catheter Weight 147.8 kg ABP, PAP, CO, CI - Last 8 Hours Arterial Blood Pressure 116/56 Arterial Blood Pressure 104/64 Arterial Blood Pressure 125/62 Arterial Blood Pressure 133/69 Arterial Blood Pressure 142/61 Arterial Blood Pressure 141/60 Arterial Blood Pressure 164/73 Arterial Blood Pressure 169/74 Arterial Blood Pressure 158/73 Arterial Blood Pressure 143/68 Arterial Blood Pressure 142/67 Pulmonary Artery Pressure 25/17 Pulmonary Artery Pressure 30/22 Pulmonary Artery Pressure 34/26 Pulmonary Artery Pressure 38/31 Pulmonary Artery Pressure 31/24 Pulmonary Artery Pressure 35/30 Pulmonary Artery Pressure 41/25 Pulmonary Artery Pressure 37/27 Pulmonary Artery Pressure 40/27 Pulmonary Artery Pressure 36/26 Pulmonary Artery Pressure 39/24 Cardiac Output 9.5 Cardiac Output 10.9 Cardiac Output 9.1 Cardiac Output 9.1 Cardiac Output 8.3 Cardiac Index 3.7 Cardiac Index 4.2 Cardiac Index 3.5 Cardiac Index 3.5 Cardiac Index 3.2 Calm and comfortable, sedated, orotracheal and orogastric tube are both in place Head exam was generally normal. There was no scleral icterus or corneal arcus. Mucous membranes were moist. Neck was supple and without jugular venous distension, thyromegaly, or carotid bruits. Carotids were easily palpable bilaterally. There was no adenopathy. The patient is orogastric and orotracheal tube in place and the patient also has a right IJ [place]-Victor Manuel catheter in place with a Cordis in place Lungs were clear to auscultation and percussion, and with normal diaphragmatic excursion. No wheezes or rales were noted. The patient has to mediastinal/left pleural chest tube. No evidence of any air leak. Output was noted. Cardiac exam revealed the PMI to be normally situated and sized. The rhythm was regular and no extrasystoles were noted during several minutes of auscultation. The first and second heart sounds were normal and physiologic splitting of the second heart sound was noted. There were no murmurs, rubs, clicks, or gallops. Thoracotomy scar is dry clean and intact Abdominal exam revealed normal bowel sounds. The abdomen was soft, non-tender, and without masses, organomegaly, or appreciable enlargement of the abdominal aorta. Examination of the extremities revealed easily palpable radial, femoral and pedal pulses. There was no cyanosis, clubbing or edema. Examination of the skin revealed no evidence of significant rashes, suspicious appearing nevi or other concerning lesions. Neurologically, the patient is sedated on propofol Results - Laboratory Findings CBC and BMP: 05/10/23 16:00 05/10/23 12:32 ABG ABG pH 7.35 (7.35-7.45) 05/10/23 15:31 ABG pCO2 36 mmHg (35-45) 05/10/23 15:31 ABG pO2 77 mmHg (83-108) L 05/10/23 15:31 ABG O2 Saturation 94.7 % (94-97) 05/10/23 15:31 PT/INR, D-dimer PT 10.4 sec (9.0-12.0) 05/10/23 12:32 INR 1.0 (<1.2) 05/10/23 12:32 Abnormal lab findings: Abnormal Labs 05/07/23 05/10/23 05/10/23 08:24 12:32 12:32 WBC 18.5 H Neutrophils # 15.3 H Monocytes # 1.1 H ABG pH ABG pCO2 ABG pO2 ABG HCO3 ABG Total CO2 ABG O2 Saturation Sodium 136 L Carbon Dioxide 21 L BUN 26 H Creatinine 1.42 H Glucose 168 H POC Glucose (mg/dL) Magnesium 2.4 H ALT 59 H Crossmatch See Detail 05/10/23 05/10/23 05/10/23 12:41 12:59 13:22 WBC Neutrophils # Monocytes # ABG pH 7.30 L ABG pCO2 48 H ABG pO2 307 H ABG HCO3 ABG Total CO2 25 H ABG O2 Saturation 98.7 H Sodium Carbon Dioxide BUN Creatinine Glucose POC Glucose (mg/dL) 162 H 185 H Magnesium ALT Crossmatch 05/10/23 05/10/23 05/10/23 14:02 14:58 15:31 WBC Neutrophils # Monocytes # ABG pH ABG pCO2 ABG pO2 77 L ABG HCO3 20 L ABG Total CO2 ABG O2 Saturation Sodium Carbon Dioxide BUN Creatinine Glucose POC Glucose (mg/dL) 195 H 206 H Magnesium ALT Crossmatch 05/10/23 05/10/23 05/10/23 16:00 16:03 16:59 WBC 17.1 H Neutrophils # 15.2 H Monocytes # ABG pH ABG pCO2 ABG pO2 ABG HCO3 ABG Total CO2 ABG O2 Saturation Sodium Carbon Dioxide BUN Creatinine Glucose POC Glucose (mg/dL) 229 H 202 H Magnesium ALT Crossmatch - Diagnostic Findings Chest x-ray: image reviewed Assessment and Plan Plan: Coronary artery bypass surgery/LUCERO to LAD, patient is postop day #0. The patient is hemodynamically stable, intubated on a mechanical ventilator. Hemodynamically parameters are adequate. Chest x-ray was noted. Blood gas was noted. Necessary ventilator changes were done. Coronary artery disease [place] artery, status post PCI left anterior descending coronary artery in February 2023 History of ischemic cardiomyopathy, most recent transthoracic 2-D echocardiogram ejection fraction of 50-55% Hypertension, currently on Catapres infusion for blood pressure control History of cardiac arrest with ACLS and return of spontaneous circulation in October 2022 Hyperlipidemia Diabetes mellitus type 2 currently on insulin drip for blood sugar control Remote history of nicotine dependence, quit smoking in October 2022 Obesity with a BMI of 44.1 kg/m Plan Keep the patient sedated Dropped FiO2 down to 50% Increase aspirate of the 24 Monitor hemodynamics Gradually wean off sedation and check weaning parameters of the next hour or so Titrate chiropractic strep Patient should be able to extubate within next few hours We'll continue to follow.
[2023-05-10 18:00] LABS: Glucose,Whole Blood 174 mg/dL (70-110)
[2023-05-10] MEDS ORDERED: MUPIROCIN 2% OINT 22 GM TUBE NASAL ONE (18:15)
--- NOTE | 2023-05-10 18:36 | OP ---
OPERATIVE REPORT DATE OF SERVICE : 05/10/2023 ASSISTANTS: Axel Joshi and Adrianna Kennedy RN PREOPERATIVE DIAGNOSES: Status post prior ST-elevation myocardial infarction to the anterior wall that required LAD stenting in October 2022, occluded LAD stent currently, obesity, hypertension, hyperlipidemia, diabetes. POSTOPERATIVE DIAGNOSES: Status post prior ST-elevation myocardial infarction to the anterior wall that required LAD stenting in October 2022, occluded LAD stent currently, obesity, hypertension, hyperlipidemia, diabetes. PROCEDURES PERFORMED: 1. Off-pump single coronary artery bypass grafting using the skeletonized left internal mammary artery to the mid left anterior descending artery. 2. Occlusion of the left atrial appendage using a 40 mm AtriClip. 3. Graft flow measurements using the Medi-Stim system. INDICATION FOR SURGERY: The patient is a 53-year-old gentleman with the above comorbidities, who had an urgent LAD stent in October [address]-elevation myocardial infarction. The patient did well initially that had recurrent angina at this point unstable. Cardiac catheterization showed flush occlusion of the LAD stent by the ostium. He was deemed candidate for surgical revascularization. The SDS risk was discussed with him. He understood it and agreed to proceed. DESCRIPTION OF PROCEDURE: The patient in supine position, right internal jugular [place]-Victor Manuel catheter and left brachial arterial line were placed. The patient had normal PA pressure and good cardiac index. Subsequently, general endotracheal anesthesia was induced uneventfully. Moran catheter was inserted. The chest, abdomen, and both lower extremities were prepped and draped using ChloraPrep. Ioban was used to cover the skin. The patient received 3 g of cefazolin intravenously. MARCO showed no valvular abnormality and hypokinesia of the anteroapical wall. A midline sternotomy was performed and the bone was quite solid. No bone wax was used. The left hemisternum was elevated. The left internal mammary artery was harvested in a totally skeletonized fashion using low level cautery. The left pleura was intentionally opened in this process and was drained with a 19-[place]gu[place] Leonel drain. The patient was given 5000 units of heparin and the mammary artery was double clipped distally and transected, had an excellent pulsatile flow in it and was around 2 mm in diameter; however, quite spastic in its distal segment. Ankeney retractor was used. Mediastinal fat was transected between 2 ties, then pericardium was opened in an inverted T fashion. Finding included a normal soft aorta and a normal-sized heart with soft looking coronaries. The Acrobat system was used to perform the surgery on a beating heart. Additional heparin was given to achieve an ACT above 250 seconds. ACT was repeated every 20 minutes and additional heparin given if needed. The patient received 2 g of magnesium and 100 mg of lidocaine. We started by excluding the left atrial appendage by deploying a 40 mm AtriClip at its base. That triggered an atrial fibrillation that required single synchronized cardioversion with 10 joules to reestablish normal sinus rhythm. Subsequently, the left anterior descending artery was opened and had reasonable flow in it. It accepted a 1.5 mm shunt. Subsequently, the left internal mammary artery was anastomosed to the left anterior descending artery using running Prolene 7-0. The shunt was removed before completing the anastomosis, which was well tolerated. The mammary adventitia was affixed to this surrounding epicardium with 7-0 Prolene. There was no tension on the mammary. At this point, we proceeded at graft flow measurements using the Medi-Stim system. A 3 mm probe was selected. The flow into the left internal mammary artery to the left anterior descending artery was 53 mL/minute, pulsatility index of 3.9, diastolic filling of 67%, showing an excellent functioning graft. With that, half dose protamine was given and the final ACT was 170 seconds. One 19-[place]guillan Leonel drain was left substernally. Pericardial and mediastinal fat were approximated over the heart and the aorta. After ensuring adequate hemostasis and hemodynamic and after correct sponge, instrument, and needle count, the sternum was closed using 6 [id number] titanium cable as the patient is allergic to stainless steel. Thorough irrigation with cefazolin followed. The rest of the closure proceeded in layers. Skin glue was applied. The patient did not receive any blood products, but received 225 mL of Cell Saver blood. He was transferred to the ICU in stable condition with normal EKG and cardiac index of 3, mean artery pressure of 74, on nitroglycerin. MMODL / IJN: [id number] /
[2023-05-10 19:02] LABS: Glucose,Whole Blood 156 mg/dL (70-110)
[2023-05-10 19:06] LABS: Basophils % (A) 0 %; Eosinophils # (A) 0.1 k/uL (0-0.7); Eosinophils % (A) 1 %; HGB 14.5 gm/dL (13.0-17.5); Lymphocytes # (A) 0.6 k/uL (1.0-4.8); Lymphocytes % (A) 4 %; MCH 30.2 pg (25.0-35.0); MCV 91.6 fL (80.0-100.0); Mean Platelet Volume 6.8; Monocytes # (A) 0.6 k/uL (0-1.0); Monocytes % (A) 4 %; Neutrophils # (A) 13.9 k/uL (1.3-7.7); Neutrophils % (A) 91 %; Platelet Count 308 k/uL (150-450); RBC 4.81 m/uL (4.30-5.90); WBC 15.3 k/uL (3.8-10.6)
[2023-05-10 19:49] LABS: Glucose,Whole Blood 149 mg/dL (70-110)
[2023-05-10] MEDS: ATORVASTATIN 80 MG TAB PO SCH (20:02)
[2023-05-10] MEDS: SENNOSIDES-DOCUSATE SODIUM 1 EACH TAB PO SCH (20:02)
[2023-05-10] MEDS: IPRATROPIUM-ALBUTEROL 3 ML NEB INHALATION SCH (20:15)
[2023-05-10 20:47] LABS: Glucose,Whole Blood 152 mg/dL (70-110)
[2023-05-10] MEDS: METOPROLOL TARTRATE 25 MG TAB PO SCH (21:09)
[2023-05-10 22:00] LABS: Glucose,Whole Blood 151 mg/dL (70-110)
[2023-05-10 23:01] LABS: Glucose,Whole Blood 146 mg/dL (70-110)
[2023-05-11 00:01] LABS: Glucose,Whole Blood 134 mg/dL (70-110)
[2023-05-11] MEDS: ceFAZolin 3 GM in SODIUM CHLORIDE 0.9% 100 ML IVPB SCH ×2 (00:20→08:09)
[2023-05-11 01:06] LABS: Glucose,Whole Blood 119 mg/dL (70-110)
[2023-05-11 02:06] LABS: Glucose,Whole Blood 107 mg/dL (70-110)
[2023-05-11] MEDS: CLEVIDIPINE BUTYRATE 25 MG in EMPTY BAG 1 BAG IV SCH (02:25)
[2023-05-11 03:04] LABS: Glucose,Whole Blood 142 mg/dL (70-110)
[2023-05-11] MEDS: INSULIN REGULAR 100 UNIT in SODIUM CHLORIDE 0.9% 100 ML IV SCH (03:47)
[2023-05-11 04:06] LABS: Glucose,Whole Blood 136 mg/dL (70-110)
[2023-05-11 04:47] LABS: Basophils % (A) 0 %; Eosinophils % (A) 0 %; HCT 45.7 % (39.0-53.0); HGB 14.7 gm/dL (13.0-17.5); Lymphocytes % (A) 6 %; MCH 29.4 pg (25.0-35.0); MCV 91.8 fL (80.0-100.0); Mean Platelet Volume 7.2; Monocytes # (A) 0.7 k/uL (0-1.0); Monocytes % (A) 5 %; Neutrophils # (A) 13.8 k/uL (1.3-7.7); Neutrophils % (A) 88 %; Platelet Count 260 k/uL (150-450); RBC 4.98 m/uL (4.30-5.90); RDW 12.1 % (11.5-15.5); WBC 15.6 k/uL (3.8-10.6)
[2023-05-11 05:02] LABS: Glucose,Whole Blood 122 mg/dL (70-110)
[2023-05-11 05:05] LABS: ALT 49 U/L (4-49); AST 44 U/L (17-59); African American GFR (CKD) 62 (>60 ml/min/1.73 sqM); Alkaline Phosphatase 60 U/L (38-126); Anion Gap 14 mmol/L; Blood Urea Nitrogen 22 mg/dL (9-20); Carbon Dioxide 17 mmol/L (22-30); Chloride 102 mmol/L (98-107); Glucose 131 mg/dL (74-99); Magnesium 2.2 mg/dL (1.6-2.3); Non-African American GFR(CKD) 53 (>60 ml/min/1.73 sqM); Potassium 5.2 mmol/L (3.5-5.1); Sodium 133 mmol/L (137-145); Total Bilirubin 0.7 mg/dL (0.2-1.3); Total Protein 7.2 g/dL (6.3-8.2)
[2023-05-11 05:21] LABS: Ionized Calcium 4.9 mg/dL (4.5-5.3)
[2023-05-11 06:02] LABS: Glucose,Whole Blood 125 mg/dL (70-110)
[2023-05-11 06:52] LABS: Glucose,Whole Blood 122 mg/dL (70-110)
[2023-05-11] MEDS ORDERED: HYDROcodone/APAP 7.5-325MG 1 EACH TAB PO PRN (07:09)
--- NOTE | 2023-05-11 07:49 | P.PN ---
Subjective Progress Note Date: 05/11/23 Principal diagnosis: Coronary artery disease with previous STEMI and LAD stenting in October 2022, currently occluded LAD stent, unstable angina. Previous medical history of hypertension, hyperlipidemia, ischemic cardiomyopathy, type 2 diabetes, obesity, previous tobacco dependence POD #1 off-pump single coronary artery bypass grafting using this skeletonized left internal mammary artery to the mid left anterior descending artery, occlusion of the left atrial appendage using a 40 mm AtriClip, graft flow measurements using the [employer] system The patient was seen and examined this morning sitting up in a recliner in the intensive care unit in no acute distress. He was successfully extubated yesterday at 15:45. States pain is mostly controlled, denies shortness of gurjit th although he states he does feel congested. Remains in sinus rhythm, hemodynamically stable on no inotropes or pressors. He is on IV amiodarone for A. fib prophylaxis. Currently on room air with oxygen saturation in the high 90s, able to achieve 750 mL on his incentive spirometry. Chest x-ray, lab work reviewed. Right internal jugular Florence/Cordis, left brachial arterial line, mediastinal/left pleural chest tubes all present. No other new concerns. Objective - Vital Signs Vital signs: Vital Signs Temp 98.9 F 05/10/23 21:00 Pulse 81 05/11/23 07:00 Resp 14 05/11/23 07:00 BP 111/70 05/11/23 05:30 Pulse Ox 96 05/11/23 07:00 FiO2 50 05/10/23 15:05 Intake & Output 05/10/23 05/11/23 05/11/23 18:59 06:59 18:59 Intake Total 7634.783 9786.534 86.875 Output Total 2125 1280 80 Balance -881.318 449.534 6.875 Weight 149.3 kg Intake: IV 726 1328 59 0.9 350 570 50 ACETAMINOPHEN IV (For NPO 100 ) 1,000 mg In Empty Bag 1 bag @ 400 mls/hr IVPB Q6HR [facility] Rx#:[id number] Albumin Human 5% 250 ml 250 In Empty Bag 1 bag @ 250 mls/hr IVPB Q1HR PRN Rx#: [id number] ceFAZolin 3 gm In Sodium 100 Chloride 0.9% 100 ml @ Per Protocol 200 mls/hr IVPB ONCE ONE Rx#: [id number] co/ci 210 200 0 pressure bags 63 108 9 Intake, IV Titration 417.682 201.534 27.875 Amount Amiodarone 360 mg In 181.298 Dextrose 5% in Water 200 ml @ 1 MG/MIN 34.533 mls/ hr IV .Q6H PRN Rx#: [id number] Clevidipine Butyrate 25 75.900 150.766 mg In Empty Bag 1 bag @ 1 MG/HR 2 mls/hr IV .Q24H [facility] Rx#:[id number] Dexmedetomidine/0.9% NaCl 10.1 (Pmx) 400 mcg In Empty Bag 1 bag @ Titrate IV . Q0M [facility] Rx#:[id number] Insulin Regular 100 unit 30.813 50.768 In Sodium Chloride 0.9% 100 ml @ Per Protocol IV .Q0M [facility] Rx#:[id number] Nitroglycerin-D5w Pmx 50 27.875 mg In Dextrose/Water 1 250ml.bag @ 5 MCG/MIN 1.5 mls/hr IV .Q24H [facility] Rx#: [id number] propofoL 1,000 mg In 119.571 Empty Bag 1 bag @ Titrate IV .Q0M [facility] Rx#: [id number] Oral 100 200 Output: Chest Tube Drainage [address] 185 0 0 Urine 1520 900 50 Estimated Blood Loss 250 Other: Voiding Method Indwelling Catheter Indwelling Catheter ABP, PAP, CO, CI - Last Documented Arterial Blood Pressure 115/57 Pulmonary Artery Pressure 19/13 Cardiac Output 5.7 Cardiac Index 2.2 - Exam CONSTITUTIONAL: Appears comfortable, cooperative, no acute distress RESPIRATORY: Lungs sounds diminished bilaterally. Respirations even, nonlabored. Currently on room air with oxygen saturation 97%. Able to achieve 750 mL on incentive spirometry. Strong cough. CARDIOVASCULAR: S1, S2 present. Regular rate and rhythm, sinus rhythm on telemetry. Sternum stable. Palpable peripheral pulses bilaterally. Trace generalized edema present. No calf pain or tenderness noted. Heart hugger in place with patient demonstrating appropriate use. Antiembolism stockings, SCDs present. GASTROINTESTINAL: Abdomen soft, nontender, nondistended. Hypoactive bowel sounds present 4 quadrants. Tolerating clear liquids. Denies flatus GENITOURINARY: Moran present draining clear, yellow urine. Output overnight 40-125 mL per hour INTEGUMENTARY: Skin is warm and dry with evidence of good perfusion. Anterior chest incision well approximated and covered with dry intact dressing NEUROLOGIC: Cranial nerves II through XII intact MUSKULOSKELETAL: Able to move all extremities, strength equal bilaterally PSYCHIATRIC: Alert and oriented to person place and time, appropriate affect, intact judgment and insight INVASIVE LINES AND TUBES: Mediastinal/left pleural chest tubes present and connected to wall suction, no air leaks present. Mediastinal tube with no drainage overnight, 190 mL since surgery. Left pleural chest tube with 355 mL serosanguineous drainage overnight, 600 mL since surgery. Right internal jugular Florence/Cordis, left brachial arterial line present. Last CO/CI 5.7/2.2, PA 16/08, CVP 3. - Allied health notes Allied health notes reviewed: nursing - Labs CBC & Chem 7: 05/11/23 04:05 05/11/23 04:05 Labs: Abnormal Lab Results - Last 24 Hours (Table) 05/07/23 05/10/23 05/10/23 Range/Units 08:24 12:32 12:32 WBC 18.5 H (3.8-10.6) k/uL Neutrophils # 15.3 H (1.3-7.7) k/uL Lymphocytes # (1.0-4.8) k/uL Monocytes # 1.1 H (0-1.0) k/uL ABG pH (7.35-7.45) ABG pCO2 (35-45) mmHg ABG pO2 (83-108) mmHg ABG HCO3 (21-25) mmol/L ABG Total CO2 (19-24) mmol/L ABG O2 Saturation (94-97) % Sodium 136 L (137-145) mmol/L Potassium (3.5-5.1) mmol/L Carbon Dioxide 21 L (22-30) mmol/L BUN 26 H (9-20) mg/dL Creatinine 1.42 H (0.66-1.25) mg/dL Glucose 168 H (74-99) mg/dL POC Glucose (mg/dL) (70-110) mg/dL Magnesium 2.4 H (1.6-2.3) mg/dL ALT 59 H (4-49) U/L Crossmatch See Detail 05/10/23 05/10/23 05/10/23 Range/Units 12:41 12:59 13:22 WBC (3.8-10.6) k/uL Neutrophils # (1.3-7.7) k/uL Lymphocytes # (1.0-4.8) k/uL Monocytes # (0-1.0) k/uL ABG pH 7.30 L (7.35-7.45) ABG pCO2 48 H (35-45) mmHg ABG pO2 307 H (83-108) mmHg ABG HCO3 (21-25) mmol/L ABG Total CO2 25 H (19-24) mmol/L ABG O2 Saturation 98.7 H (94-97) % Sodium (137-145) mmol/L Potassium (3.5-5.1) mmol/L Carbon Dioxide (22-30) mmol/L BUN (9-20) mg/dL Creatinine (0.66-1.25) mg/dL Glucose (74-99) mg/dL POC Glucose (mg/dL) 162 H 185 H (70-110) mg/dL Magnesium (1.6-2.3) mg/dL ALT (4-49) U/L Crossmatch 05/10/23 05/10/23 05/10/23 Range/Units 14:02 14:58 15:31 WBC (3.8-10.6) k/uL Neutrophils # (1.3-7.7) k/uL Lymphocytes # (1.0-4.8) k/uL Monocytes # (0-1.0) k/uL ABG pH (7.35-7.45) ABG pCO2 (35-45) mmHg ABG pO2 77 L (83-108) mmHg ABG HCO3 20 L (21-25) mmol/L ABG Total CO2 (19-24) mmol/L ABG O2 Saturation (94-97) % Sodium (137-145) mmol/L Potassium (3.5-5.1) mmol/L Carbon Dioxide (22-30) mmol/L BUN (9-20) mg/dL Creatinine (0.66-1.25) mg/dL Glucose (74-99) mg/dL POC Glucose (mg/dL) 195 H 206 H (70-110) mg/dL Magnesium (1.6-2.3) mg/dL ALT (4-49) U/L Crossmatch 05/10/23 05/10/23 05/10/23 Range/Units 16:00 16:03 16:59 WBC 17.1 H (3.8-10.6) k/uL Neutrophils # 15.2 H (1.3-7.7) k/uL Lymphocytes # (1.0-4.8) k/uL Monocytes # (0-1.0) k/uL ABG pH (7.35-7.45) ABG pCO2 (35-45) mmHg ABG pO2 (83-108) mmHg ABG HCO3 (21-25) mmol/L ABG Total CO2 (19-24) mmol/L ABG O2 Saturation (94-97) % Sodium (137-145) mmol/L Potassium (3.5-5.1) mmol/L Carbon Dioxide (22-30) mmol/L BUN (9-20) mg/dL Creatinine (0.66-1.25) mg/dL Glucose (74-99) mg/dL POC Glucose (mg/dL) 229 H 202 H (70-110) mg/dL Magnesium (1.6-2.3) mg/dL ALT (4-49) U/L Crossmatch 05/10/23 05/10/23 05/10/23 Range/Units 17:59 19:00 19:00 WBC 15.3 H (3.8-10.6) k/uL Neutrophils # 13.9 H (1.3-7.7) k/uL Lymphocytes # 0.6 L (1.0-4.8) k/uL Monocytes # (0-1.0) k/uL ABG pH (7.35-7.45) ABG pCO2 (35-45) mmHg ABG pO2 (83-108) mmHg ABG HCO3 (21-25) mmol/L ABG Total CO2 (19-24) mmol/L ABG O2 Saturation (94-97) % Sodium (137-145) mmol/L Potassium (3.5-5.1) mmol/L Carbon Dioxide (22-30) mmol/L BUN (9-20) mg/dL Creatinine (0.66-1.25) mg/dL Glucose (74-99) mg/dL POC Glucose (mg/dL) 174 H 156 H (70-110) mg/dL Magnesium (1.6-2.3) mg/dL ALT (4-49) U/L Crossmatch 05/10/23 05/10/23 05/10/23 Range/Units 19:47 20:45 21:59 WBC (3.8-10.6) k/uL Neutrophils # (1.3-7.7) k/uL Lymphocytes # (1.0-4.8) k/uL Monocytes # (0-1.0) k/uL ABG pH (7.35-7.45) ABG pCO2 (35-45) mmHg ABG pO2 (83-108) mmHg ABG HCO3 (21-25) mmol/L ABG Total CO2 (19-24) mmol/L ABG O2 Saturation (94-97) % Sodium (137-145) mmol/L Potassium (3.5-5.1) mmol/L Carbon Dioxide (22-30) mmol/L BUN (9-20) mg/dL Creatinine (0.66-1.25) mg/dL Glucose (74-99) mg/dL POC Glucose (mg/dL) 149 H 152 H 151 H (70-110) mg/dL Magnesium (1.6-2.3) mg/dL ALT (4-49) U/L Crossmatch 05/10/23 05/10/23 05/11/23 Range/Units 23:00 23:58 01:04 WBC (3.8-10.6) k/uL Neutrophils # (1.3-7.7) k/uL Lymphocytes # (1.0-4.8) k/uL Monocytes # (0-1.0) k/uL ABG pH (7.35-7.45) ABG pCO2 (35-45) mmHg ABG pO2 (83-108) mmHg ABG HCO3 (21-25) mmol/L ABG Total CO2 (19-24) mmol/L ABG O2 Saturation (94-97) % Sodium (137-145) mmol/L Potassium (3.5-5.1) mmol/L Carbon Dioxide (22-30) mmol/L BUN (9-20) mg/dL Creatinine (0.66-1.25) mg/dL Glucose (74-99) mg/dL POC Glucose (mg/dL) 146 H 134 H 119 H (70-110) mg/dL Magnesium (1.6-2.3) mg/dL ALT (4-49) U/L Crossmatch 05/11/23 05/11/23 05/11/23 Range/Units 03:02 04:04 04:05 WBC 15.6 H (3.8-10.6) k/uL Neutrophils # 13.8 H (1.3-7.7) k/uL Lymphocytes # (1.0-4.8) k/uL Monocytes # (0-1.0) k/uL ABG pH (7.35-7.45) ABG pCO2 (35-45) mmHg ABG pO2 (83-108) mmHg ABG HCO3 (21-25) mmol/L ABG Total CO2 (19-24) mmol/L ABG O2 Saturation (94-97) % Sodium (137-145) mmol/L Potassium (3.5-5.1) mmol/L Carbon Dioxide (22-30) mmol/L BUN (9-20) mg/dL Creatinine (0.66-1.25) mg/dL Glucose (74-99) mg/dL POC Glucose (mg/dL) 142 H 136 H (70-110) mg/dL Magnesium (1.6-2.3) mg/dL ALT (4-49) U/L Crossmatch 05/11/23 05/11/23 05/11/23 Range/Units 04:05 05:01 05:59 WBC (3.8-10.6) k/uL Neutrophils # (1.3-7.7) k/uL Lymphocytes # (1.0-4.8) k/uL Monocytes # (0-1.0) k/uL ABG pH (7.35-7.45) ABG pCO2 (35-45) mmHg ABG pO2 (83-108) mmHg ABG HCO3 (21-25) mmol/L ABG Total CO2 (19-24) mmol/L ABG O2 Saturation (94-97) % Sodium 133 L (137-145) mmol/L Potassium 5.2 H (3.5-5.1) mmol/L Carbon Dioxide 17 L (22-30) mmol/L BUN 22 H (9-20) mg/dL Creatinine 1.49 H (0.66-1.25) mg/dL Glucose 131 H (74-99) mg/dL POC Glucose (mg/dL) 122 H 125 H (70-110) mg/dL Magnesium (1.6-2.3) mg/dL ALT (4-49) U/L Crossmatch 05/11/23 Range/Units 06:50 WBC (3.8-10.6) k/uL Neutrophils # (1.3-7.7) k/uL Lymphocytes # (1.0-4.8) k/uL Monocytes # (0-1.0) k/uL ABG pH (7.35-7.45) ABG pCO2 (35-45) mmHg ABG pO2 (83-108) mmHg ABG HCO3 (21-25) mmol/L ABG Total CO2 (19-24) mmol/L ABG O2 Saturation (94-97) % Sodium (137-145) mmol/L Potassium (3.5-5.1) mmol/L Carbon Dioxide (22-30) mmol/L BUN (9-20) mg/dL Creatinine (0.66-1.25) mg/dL Glucose (74-99) mg/dL POC Glucose (mg/dL) 122 H (70-110) mg/dL Magnesium (1.6-2.3) mg/dL ALT (4-49) U/L Crossmatch - Imaging and Cardiology Chest x-ray: image reviewed Assessment and Plan Assessment: Coronary artery disease with previous STEMI and LAD stenting in October 2022, currently occluded LAD stent, unstable angina, status post single-vessel CABG History of ischemic cardiomyopathy, EF 30-35% in October 2022, improvement in most recent echo with EF 50-55% History of hypertension Hyperlipidemia, treated, cholesterol 134, LDL 49, triglycerides 214 Type 2 diabetes, preoperative hemoglobin A1c 6.5% Obesity Previous tobacco dependence, preoperative FEV1 107% of predicted Plan: Continue to maximize medical therapy with aspirin, statin, Plavix, beta jono. Will increase beta jono therapy as tolerated. Discontinue IV nitro Continue amiodarone for A. fib prophylaxis, will transition to oral Encourage incentive spirometry use 10 times every hour while awake. Bronchodilators per pulmonology Increase activity, ambulate as tolerated. PT/OT/cardiac rehab consulted We'll monitor daily labs and x-rays. Electrolyte replacement per protocol GI/DVT prophylaxis Pain control with current medication regimen, will change from Oxy to [place], no Toradol due to elevated creatinine with normal GFR Insulin management per internal medicine. Patient is diabetic and needs tight blood culture control to prevent infection Discontinue Florence. Connect Cordis to continuous CVP monitoring Will discontinue mediastinal chest tube, keep left pleural chest tube for anothe r 24 hours Discontinue Moran catheter, may bladder scan and straight cath for >300 mL residual Continue to record strict accurate intake and output Daily weights More recommendations to follow
[2023-05-11 07:58] LABS: Glucose,Whole Blood 132 mg/dL (70-110)
[2023-05-11] MEDS ORDERED: METOCLOPRAMIDE 5 MG/ML 2 ML VIAL IVP STA (07:58)
[2023-05-11] MEDS: ASPIRIN 325 MG TAB PO SCH (08:08)
[2023-05-11] MEDS: HEPARIN SODIUM,PORCINE 5,000 UNIT/ML 1 ML VIAL SQ SCH ×3 (08:08→23:59)
[2023-05-11] MEDS: CLOPIDOGREL 75 MG TAB PO SCH (08:09)
[2023-05-11] MEDS: METOPROLOL TARTRATE 25 MG TAB PO SCH ×2 (08:09→20:17)
[2023-05-11] MEDS: HYDROcodone/APAP 10-325MG 1 EACH TAB PO PRN ×3 (08:09→15:05)
[2023-05-11] MEDS: AMIODARONE 450 MG in DEXTROSE 5% IN WATER 250 ML IV PRN ×2 (08:25)
[2023-05-11] MEDS: IPRATROPIUM-ALBUTEROL 3 ML NEB INHALATION SCH ×4 (08:28→20:54)
[2023-05-11] MEDS ORDERED: MAGNESIUM HYDROXIDE 2,400 MG/30 ML CUP PO PRN (09:00)
[2023-05-11] MEDS ORDERED: PANTOPRAZOLE 40 MG/10 ML VIAL IVP SCH (09:00)
[2023-05-11] MEDS ORDERED: METOPROLOL TARTRATE 12.5 MG TAB PO SCH (09:00)
[2023-05-11] MEDS ORDERED: bisacodyL 10 MG SUPP RECTAL PRN (09:00)
--- NOTE | 2023-05-11 09:18 | P.PN ---
Subjective Progress Note Date: 05/11/23 53-year-old male patient post bypass surgery. The patient underwent elective coronary artery bypass surgery with LUCERO to LAD. The patient is currently in the intensive care unit, intubated on a mechanical ventilator. The patient was seen in the ICU. The patient is currently on propofol running at 60 mcg/kg/m. The blood pressure is elevated and the patient is currently on chiropractic's at 8 mg an hour. Hemodynamic parameters included a cardiac output of 9.1 with an index of 3.5. PA pressures of 42/26. The patient is producing adequate amount of urine output. The patient has a left pleural and mediastinal chest tube, output has been 100 mL of bloody output from each chest tube. The chest x-ray showed adequate expansion of both lungs. ET tube and [place]-Victor Manuel catheter in good location. The patient is calm and comfortable and 6 is a mechanical ventilator. The blood gases were done on assist-control mode of 14, tidal volume of 600, FiO2 of 100% and a PEEP of 10 showed a pH of 7.29 with a pCO2 of 47 and pO2 of 307. FiO2 was dropped down to 50%. The patient is known to have CAD, previous cardiac arrest, diabetes mellitus type 2, systolic heart failure, hyperlipidemia and hypertension. Preoperative cardiac catheterization showed LAD disease that was totally occluded. The patient had also collaterals. No disease involving the circumflex or RCA. LV was mildly impaired. 05/11, the patient is being seen for a follow-up. The patient is currently postop day #1. Wean off the mechanical ventilator and the patient was extubated without any major difficulties. This morning, he is on room air oxygen. Sitting up on a chair. Using the incentive spirometer. Cardiac output is 0.1 with an index of 2.4. Pulmonary artery pressures of 23/17. Adequate urine output. Pulse ox 97% on room air oxygen. No focal neurological deficits. No respiratory difficulties. Is currently off thecleviprex drip. He is also on insulin drip at 4.5 units an hour. Cardiac rhythm is sinus. The chest x-ray from today showing adequate expansion of both lungs. No evidence of any pneu mothorax. The patient has a total and the left pleural and the mediastinal chest tube. Output from the chest tubes have been essentially minimal overnight. On his x-ray, he has a large gastric bubble. Atelectatic changes are seen in lung bases bilaterally. [place]-Victor Manuel catheter is in a good location. The blood work from today shows a hemoglobin of 14.7, white cell count of 15.6, sodium is at 133, potassium is at 5.2, BUN is at 24 with a creatinine of 1.49. LFTs are within normal limits. Objective - Vital Signs Vital signs: Vital Signs Temp 98.9 F 05/10/23 21:00 Pulse 82 05/11/23 08:41 Resp 14 05/11/23 07:00 BP 111/70 05/11/23 05:30 Pulse Ox 96 05/11/23 07:00 FiO2 50 05/10/23 15:05 Intake & Output 05/10/23 05/11/23 05/11/23 18:59 06:59 18:59 Intake Total 6151.988 6958.534 345.742 Output Total 2125 1280 80 Balance -881.318 449.534 265.742 Weight 149.3 kg Intake: IV 726 1328 59 0.9 350 570 50 ACETAMINOPHEN IV (For NPO 100 ) 1,000 mg In Empty Bag 1 bag @ 400 mls/hr IVPB Q6HR [facility] Rx#:[id number] Albumin Human 5% 250 ml 250 In Empty Bag 1 bag @ 250 mls/hr IVPB Q1HR PRN Rx#: [id number] ceFAZolin 3 gm In Sodium 100 Chloride 0.9% 100 ml @ Per Protocol 200 mls/hr IVPB ONCE ONE Rx#: [id number] co/ci 210 200 0 pressure bags 63 108 9 Intake, IV Titration 417.682 201.534 286.742 Amount Amiodarone 360 mg In 181.298 Dextrose 5% in Water 200 ml @ 1 MG/MIN 34.533 mls/ hr IV .Q6H PRN Rx#: [id number] Amiodarone 450 mg In 246.949 Dextrose 5% in Water 250 ml @ 0.5 MG/MIN 16.667 mls/hr IV .Q15H PRN Rx#: [id number] Clevidipine Butyrate 25 75.900 150.766 mg In Empty Bag 1 bag @ 1 MG/HR 2 mls/hr IV .Q24H [facility] Rx#:[id number] Dexmedetomidine/0.9% NaCl 10.1 (Pmx) 400 mcg In Empty Bag 1 bag @ Titrate IV . Q0M [facility] Rx#:[id number] Insulin Regular 100 unit 30.813 50.768 11.918 In Sodium Chloride 0.9% 100 ml @ Per Protocol IV .Q0M [facility] Rx#:[id number] Nitroglycerin-D5w Pmx 50 27.875 mg In Dextrose/Water 1 250ml.bag @ 5 MCG/MIN 1.5 mls/hr IV .Q24H [facility] Rx#: [id number] propofoL 1,000 mg In 119.571 Empty Bag 1 bag @ Titrate IV .Q0M [facility] Rx#: [id number] Oral 100 200 Output: Chest Tube Drainage [address] 185 0 0 Urine 1520 900 50 Estimated Blood Loss 250 Other: Voiding Method Indwelling Catheter Indwelling Catheter ABP, PAP, CO, CI - Last Documented Arterial Blood Pressure 115/57 Pulmonary Artery Pressure 19/13 Cardiac Output 5.7 Cardiac Index 2.2 - Exam Calm and comfortable, on RA 02 Head exam was generally normal. There was no scleral icterus or corneal arcus. Mucous membranes were moist. Neck was supple and without jugular venous distension, thyromegaly, or carotid bruits. Carotids were easily palpable bilaterally. There was no adenopathy. The patient is orogastric and orotracheal tube in place and the patient also has a right IJ [place]-Victor Manuel catheter in place with a Cordis in place Lungs were clear to auscultation and percussion, and with normal diaphragmatic excursion. No wheezes or rales were noted. The patient has to mediastinal/left pleural chest tube. No evidence of any air leak. Output was noted. Cardiac exam revealed the PMI to be normally situated and sized. The rhythm was regular and no extrasystoles were noted during several minutes of auscultation. The first and second heart sounds were normal and physiologic splitting of the second heart sound was noted. There were no murmurs, rubs, clicks, or gallops. Thoracotomy scar is dry clean and intact Abdominal exam revealed normal bowel sounds. The abdomen was soft, non-tender, and without masses, organomegaly, or appreciable enlargement of the abdominal aorta. Examination of the extremities revealed easily palpable radial, femoral and pedal pulses. There was no cyanosis, clubbing or edema. Examination of the skin revealed no evidence of significant rashes, suspicious a ppearing nevi or other concerning lesions. Neurologically, the patient is awake and alert - Labs CBC & Chem 7: 05/11/23 04:05 05/11/23 04:05 Labs: Abnormal Lab Results - Last 24 Hours (Table) 05/07/23 05/10/23 05/10/23 Range/Units 08:24 12:32 12:32 WBC 18.5 H (3.8-10.6) k/uL Neutrophils # 15.3 H (1.3-7.7) k/uL Lymphocytes # (1.0-4.8) k/uL Monocytes # 1.1 H (0-1.0) k/uL ABG pH (7.35-7.45) ABG pCO2 (35-45) mmHg ABG pO2 (83-108) mmHg ABG HCO3 (21-25) mmol/L ABG Total CO2 (19-24) mmol/L ABG O2 Saturation (94-97) % Sodium 136 L (137-145) mmol/L Potassium (3.5-5.1) mmol/L Carbon Dioxide 21 L (22-30) mmol/L BUN 26 H (9-20) mg/dL Creatinine 1.42 H (0.66-1.25) mg/dL Glucose 168 H (74-99) mg/dL POC Glucose (mg/dL) (70-110) mg/dL Magnesium 2.4 H (1.6-2.3) mg/dL ALT 59 H (4-49) U/L Crossmatch See Detail 05/10/23 05/10/23 05/10/23 Range/Units 12:41 12:59 13:22 WBC (3.8-10.6) k/uL Neutrophils # (1.3-7.7) k/uL Lymphocytes # (1.0-4.8) k/uL Monocytes # (0-1.0) k/uL ABG pH 7.30 L (7.35-7.45) ABG pCO2 48 H (35-45) mmHg ABG pO2 307 H (83-108) mmHg ABG HCO3 (21-25) mmol/L ABG Total CO2 25 H (19-24) mmol/L ABG O2 Saturation 98.7 H (94-97) % Sodium (137-145) mmol/L Potassium (3.5-5.1) mmol/L Carbon Dioxide (22-30) mmol/L BUN (9-20) mg/dL Creatinine (0.66-1.25) mg/dL Glucose (74-99) mg/dL POC Glucose (mg/dL) 162 H 185 H (70-110) mg/dL Magnesium (1.6-2.3) mg/dL ALT (4-49) U/L Crossmatch 05/10/23 05/10/23 05/10/23 Range/Units 14:02 14:58 15:31 WBC (3.8-10.6) k/uL Neutrophils # (1.3-7.7) k/uL Lymphocytes # (1.0-4.8) k/uL Monocytes # (0-1.0) k/uL ABG pH (7.35-7.45) ABG pCO2 (35-45) mmHg ABG pO2 77 L (83-108) mmHg ABG HCO3 20 L (21-25) mmol/L ABG Total CO2 (19-24) mmol/L ABG O2 Saturation (94-97) % Sodium (137-145) mmol/L Potassium (3.5-5.1) mmol/L Carbon Dioxide (22-30) mmol/L BUN (9-20) mg/dL Creatinine (0.66-1.25) mg/dL Glucose (74-99) mg/dL POC Glucose (mg/dL) 195 H 206 H (70-110) mg/dL Magnesium (1.6-2.3) mg/dL ALT (4-49) U/L Crossmatch 05/10/23 05/10/23 05/10/23 Range/Units 16:00 16:03 16:59 WBC 17.1 H (3.8-10.6) k/uL Neutrophils # 15.2 H (1.3-7.7) k/uL Lymphocytes # (1.0-4.8) k/uL Monocytes # (0-1.0) k/uL ABG pH (7.35-7.45) ABG pCO2 (35-45) mmHg ABG pO2 (83-108) mmHg ABG HCO3 (21-25) mmol/L ABG Total CO2 (19-24) mmol/L ABG O2 Saturation (94-97) % Sodium (137-145) mmol/L Potassium (3.5-5.1) mmol/L Carbon Dioxide (22-30) mmol/L BUN (9-20) mg/dL Creatinine (0.66-1.25) mg/dL Glucose (74-99) mg/dL POC Glucose (mg/dL) 229 H 202 H (70-110) mg/dL Magnesium (1.6-2.3) mg/dL ALT (4-49) U/L Crossmatch 05/10/23 05/10/23 05/10/23 Range/Units 17:59 19:00 19:00 WBC 15.3 H (3.8-10.6) k/uL Neutrophils # 13.9 H (1.3-7.7) k/uL Lymphocytes # 0.6 L (1.0-4.8) k/uL Monocytes # (0-1.0) k/uL ABG pH (7.35-7.45) ABG pCO2 (35-45) mmHg ABG pO2 (83-108) mmHg ABG HCO3 (21-25) mmol/L ABG Total CO2 (19-24) mmol/L ABG O2 Saturation (94-97) % Sodium (137-145) mmol/L Potassium (3.5-5.1) mmol/L Carbon Dioxide (22-30) mmol/L BUN (9-20) mg/dL Creatinine (0.66-1.25) mg/dL Glucose (74-99) mg/dL POC Glucose (mg/dL) 174 H 156 H (70-110) mg/dL Magnesium (1.6-2.3) mg/dL ALT (4-49) U/L Crossmatch 05/10/23 05/10/23 05/10/23 Range/Units 19:47 20:45 21:59 WBC (3.8-10.6) k/uL Neutrophils # (1.3-7.7) k/uL Lymphocytes # (1.0-4.8) k/uL Monocytes # (0-1.0) k/uL ABG pH (7.35-7.45) ABG pCO2 (35-45) mmHg ABG pO2 (83-108) mmHg ABG HCO3 (21-25) mmol/L ABG Total CO2 (19-24) mmol/L ABG O2 Saturation (94-97) % Sodium (137-145) mmol/L Potassium (3.5-5.1) mmol/L Carbon Dioxide (22-30) mmol/L BUN (9-20) mg/dL Creatinine (0.66-1.25) mg/dL Glucose (74-99) mg/dL POC Glucose (mg/dL) 149 H 152 H 151 H (70-110) mg/dL Magnesium (1.6-2.3) mg/dL ALT (4-49) U/L Crossmatch 05/10/23 05/10/23 05/11/23 Range/Units 23:00 23:58 01:04 WBC (3.8-10.6) k/uL Neutrophils # (1.3-7.7) k/uL Lymphocytes # (1.0-4.8) k/uL Monocytes # (0-1.0) k/uL ABG pH (7.35-7.45) ABG pCO2 (35-45) mmHg ABG pO2 (83-108) mmHg ABG HCO3 (21-25) mmol/L ABG Total CO2 (19-24) mmol/L ABG O2 Saturation (94-97) % Sodium (137-145) mmol/L Potassium (3.5-5.1) mmol/L Carbon Dioxide (22-30) mmol/L BUN (9-20) mg/dL Creatinine (0.66-1.25) mg/dL Glucose (74-99) mg/dL POC Glucose (mg/dL) 146 H 134 H 119 H (70-110) mg/dL Magnesium (1.6-2.3) mg/dL ALT (4-49) U/L Crossmatch 05/11/23 05/11/23 05/11/23 Range/Units 03:02 04:04 04:05 WBC 15.6 H (3.8-10.6) k/uL Neutrophils # 13.8 H (1.3-7.7) k/uL Lymphocytes # (1.0-4.8) k/uL Monocytes # (0-1.0) k/uL ABG pH (7.35-7.45) ABG pCO2 (35-45) mmHg ABG pO2 (83-108) mmHg ABG HCO3 (21-25) mmol/L ABG Total CO2 (19-24) mmol/L ABG O2 Saturation (94-97) % Sodium (137-145) mmol/L Potassium (3.5-5.1) mmol/L Carbon Dioxide (22-30) mmol/L BUN (9-20) mg/dL Creatinine (0.66-1.25) mg/dL Glucose (74-99) mg/dL POC Glucose (mg/dL) 142 H 136 H (70-110) mg/dL Magnesium (1.6-2.3) mg/dL ALT (4-49) U/L Crossmatch 05/11/23 05/11/23 05/11/23 Range/Units 04:05 05:01 05:59 WBC (3.8-10.6) k/uL Neutrophils # (1.3-7.7) k/uL Lymphocytes # (1.0-4.8) k/uL Monocytes # (0-1.0) k/uL ABG pH (7.35-7.45) ABG pCO2 (35-45) mmHg ABG pO2 (83-108) mmHg ABG HCO3 (21-25) mmol/L ABG Total CO2 (19-24) mmol/L ABG O2 Saturation (94-97) % Sodium 133 L (137-145) mmol/L Potassium 5.2 H (3.5-5.1) mmol/L Carbon Dioxide 17 L (22-30) mmol/L BUN 22 H (9-20) mg/dL Creatinine 1.49 H (0.66-1.25) mg/dL Glucose 131 H (74-99) mg/dL POC Glucose (mg/dL) 122 H 125 H (70-110) mg/dL Magnesium (1.6-2.3) mg/dL ALT (4-49) U/L Crossmatch 05/11/23 05/11/23 Range/Units 06:50 07:57 WBC (3.8-10.6) k/uL Neutrophils # (1.3-7.7) k/uL Lymphocytes # (1.0-4.8) k/uL Monocytes # (0-1.0) k/uL ABG pH (7.35-7.45) ABG pCO2 (35-45) mmHg ABG pO2 (83-108) mmHg ABG HCO3 (21-25) mmol/L ABG Total CO2 (19-24) mmol/L ABG O2 Saturation (94-97) % Sodium (137-145) mmol/L Potassium (3.5-5.1) mmol/L Carbon Dioxide (22-30) mmol/L BUN (9-20) mg/dL Creatinine (0.66-1.25) mg/dL Glucose (74-99) mg/dL POC Glucose (mg/dL) 122 H 132 H (70-110) mg/dL Magnesium (1.6-2.3) mg/dL ALT (4-49) U/L Crossmatch Assessment and Plan Plan: Coronary artery bypass surgery/LUCERO to LAD, patient is postop day #1. The patient is hemodynamically stable, extubated. Hemodynamically parameters are adequate. Chest x-ray was noted. Coronary artery disease [place] artery, status post PCI left anterior descending coronary artery in February 2023 History of ischemic cardiomyopathy, most recent transthoracic 2-D echocardiogram ejection fraction of 50-55% Hypertension, currently off the cleviprex infusion for blood pressure control History of cardiac arrest with ACLS and return of spontaneous circulation in October 2022 Hyperlipidemia Diabetes mellitus type 2 currently on insulin drip for blood sugar control Remote history of nicotine dependence, quit smoking in October 2022 Obesity with a BMI of 44.1 kg/m Acute kidney injury, creatinine is stable and the patient's urine output is adequate. His nonoliguric at this point in time. Plan She is currently on room air oxygen Monitor the output from the chest tube, the output is minimal at this point in time Monitor hemodynamics, [place]-Victor Manuel catheter can be removed today Patient is currently on aspirin, Plavix, and is also on metoprolol 25 mg by m outh twice a day. He is on amiodarone also for A. fib prophylaxis. IV fluids are currently of KVO. Is on [place] for pain control. We'll continue to follow.
[2023-05-11 09:55] LABS: Glucose,Whole Blood 132 mg/dL (70-110)
[2023-05-11] MEDS: AMIODARONE 200 MG TAB PO SCH ×2 (10:09→20:18)
--- NOTE | 2023-05-11 10:12 | XR ---
EXAMINATION TYPE: XR chest 1V portable DATE OF EXAM: 05/11/2023 5:41 AM CLINICAL INDICATION:Male, 53 years old with history of Post Operative Cardiac Surgery; [facility] COMPARISON: Chest radiographs from 05/10/2023 TECHNIQUE: XR chest 1V portable Frontal view of the chest. FINDINGS: Lungs/Pleura: No evidence of focal consolidation or pneumothorax. Blunting of the costophrenic angles is present. Pulmonary vascularity: Unremarkable. Heart/mediastinum: Cardiomediastinal silhouette is enlarged and stable. Left atrial appendage occlusi on device is present. Musculoskeletal: No acute osseous pathology. Midline sternotomy wires are noted. Other findings: None Lines/Tubes: Interval removal of the endotracheal tube. Left thoracotomy tube is present without evidence of pneumothorax. There is a [place]-Victor Manuel catheter with tip projecting over the spine. IMPRESSION: Postsurgical changes with lines and tubes as described above. Small bilateral pleural effusions.
[2023-05-11 11:18] LABS: Glucose,Whole Blood 115 mg/dL (70-110)
[2023-05-11] MEDS: SODIUM CHLORIDE 0.9% 1,000 ML IV SCH (11:20)
[2023-05-11 12:02] LABS: Glucose,Whole Blood 100 mg/dL (70-110)
[2023-05-11] MEDS: SIMETHICONE 40 MG/0.6 ML DROPS 2,000 MG/30 ML BOTTLE PO SCH ×3 (12:21→21:09)
[2023-05-11 12:57] LABS: Glucose,Whole Blood 159 mg/dL (70-110)
--- NOTE | 2023-05-11 13:32 | P.PN ---
Progress Note - Text Progress Note Date: 05/11/23 - History of Present Illness Patient is a 53-year-old male with history of CAD status post stent, recent cardiac arrest, type 2 diabetes, hypertension, systolic heart failure, dyslipidemia presenting for elective CABG. [facility] physicians has been consulted for medical management. Patient is currently in medical ICU. Intubated and sedated. May 11: I assumed care of the patient today. ICU. Sitting up in a recliner. Abdominal discomfort from a large gastric bubble. Try some aerated soda. simethicon drops.. Patient on clear liquids.. Sinus rhythm. 2 L nasal cannula. Patient taken off insulin drip this morning. Moran catheter in place. [address] Active Medications Acetaminophen (Acetaminophen Tab 325 Mg Tab) 650 mg PO Q4HR PRN PRN Reason: Fever and/ or Pain Hydrocodone Bitart/Acetaminophen (Hydrocodone/Apap 10-325mg 1 Each Tab) 1 each PO Q4HR PRN PRN Reason: Moderate to Severe Pain (4-10) Last Admin: 05/11/23 12:02 Dose: 1 each Hydrocodone Bitart/Acetaminophen (Hydrocodone/Apap 7.5-325mg 1 Each Tab) 1 each PO Q4HR PRN PRN Reason: Moderate Pain (Scale 4 to 6) Albuterol/Ipratropium (Ipratropium-Albuterol 3 Ml Neb) 3 ml INHALATION RT-Q2H PRN PRN Reason: Shortness Of Breath Or Wheezing Albuterol/Ipratropium (Ipratropium-Albuterol 3 Ml Neb) 3 ml INHALATION RT-QID [facility] [place] Last Admin: 05/11/23 11:24 Dose: 3 ml Amiodarone HCl (Amiodarone 200 Mg Tab) 400 mg PO BID [facility] [place] Last Admin: 05/11/23 10:09 Dose: 400 mg Aspirin (Aspirin 325 Mg Tab) 325 mg PO DAILY [facility] [place] Last Admin: 05/11/23 08:08 Dose: 325 mg Atorvastatin Calcium (Atorvastatin 80 Mg Tab) 80 mg PO HS [facility] [place] Last Admin: 05/10/23 20:02 Dose: 80 mg Benzocaine/Menthol (Benzocaine/Menthol Lozeng 1 Each Lozenge) 1 each MUCOUS MEM Q2H PRN PRN Reason: Sore Throat Bisacodyl (Bisacodyl 10 Mg Supp) 10 mg RECTAL DAILY PRN PRN Reason: Constipation Clopidogrel Bisulfate (Clopidogrel 75 Mg Tab) 75 mg PO DAILY [facility] [place] Last Admin: 05/11/23 08:09 Dose: 75 mg Dextrose/Water (Dextrose 50% Syringe 50 Ml) 25 ml IVP PER PROTOCOL PRN; Protocol PRN Reason: Hypoglycemia Dextrose/Water (Dextrose 50% Syringe 50 Ml) 50 ml IVP PER PROTOCOL PRN; Protocol PRN Reason: Hypoglycemia Heparin Sodium (Porcine) (Heparin Sodium,Porcine 5,000 Unit/Ml 1 Ml Vial) 5,000 unit SQ Q8HR [facility] [place] Last Admin: 05/11/23 08:08 Dose: 5,000 unit Amiodarone HCl 150 mg/ (Dextrose/Water) 103 mls @ 618 mls/hr IV .Q10M PRN; Protocol PRN Reason: A.FIB/FLUTTER Amiodarone HCl 450 mg/ (Dextrose/Water) 250 mls @ 16.667 mls/hr IV .Q15H PRN; Protocol PRN Reason: A.FIB/FLUTTER Last Titration: 05/11/23 12:11 Dose: 0 mg/min, 0 mls/hr Albumin Human 250 ml/ IV (Solution) 250 mls @ 250 mls/hr IVPB Q1HR PRN; Protocol PRN Reason: For Volume Stop: 05/12/23 12:24 Last Admin: 05/11/23 05:42 Dose: 250 mls/hr Calcium Gluconate/Sodium (Chloride 2 gm/ IV Solution) 100 mls @ 100 mls/hr IVPB ONCE PRN PRN Reason: Ionized Calcium less than 4.4 Stop: 05/17/23 12:24 Insulin Human Regular 100 unit (/ Sodium Chloride) 101 mls @ 0 mls/hr IV .Q0M [facility]; Protocol Last Titration: 05/11/23 12:57 Dose: 5 units/hr, 5.05 mls/hr Sodium Chloride (Saline 0.9%) 1,000 mls @ 20 mls/hr IV .Q24H [facility] [place] Last Admin: 05/11/23 11:20 Dose: 20 mls/hr Magnesium Hydroxide (Magnesium Hydroxide 2,400 Mg/30 Ml Cup) 2,400 mg PO BID PRN PRN Reason: Constipation Metoclopramide HCl (Metoclopramide 5 Mg/Ml 2 Ml Vial) 10 mg IVP Q4H PRN PRN Reason: Nausea And Vomiting Metoprolol Tartrate (Metoprolol Tartrate 25 Mg Tab) 25 mg PO BID [facility] [place] Last Admin: 05/11/23 08:09 Dose: 25 mg Miscellaneous Information (Magnesium Replacement Protocol 1 Each Misc) 1 each MISCELLANE DAILY PRN; Protocol PRN Reason: Per Protocol Miscellaneous Information (Potassium Replacement Protocol 1 Each Misc) 1 each MISCELLANE DAILY PRN; Protocol PRN Reason: Per Protocol Ondansetron HCl (Ondansetron 4 Mg/2 Ml Vial) 4 mg IVP Q6HR PRN PRN Reason: Nausea And Vomiting Pantoprazole Sodium (Pantoprazole 40 Mg Tablet) 40 mg PO AC-BRKFST [facility] [place] Senna/Docusate Sodium (Sennosides-Docusate Sodium 1 Each Tab) 2 each PO HS [facility] [place] Last Admin: 05/10/23 20:02 Dose: 2 each Simethicone (Simethicone 40 Mg/0.6 Ml Drops 2,000 Mg/30 Ml Bottle) 40 mg PO QID [facility] [place] Last Admin: 05/11/23 12:21 Dose: 40 mg Sodium Chloride (Sodium Chloride 0.9% Flush 10 Ml Syringe) 10 ml IV BID [facility] [place] Last Admin: 05/11/23 08:26 Dose: 10 ml On examination: VITAL SIGNS: [98.3, 86, 24, 123/58, 96% on 2 L] GENERAL APPEARANCE: BMI 44.6, in a recliner. A bit uncomfortable. 2 chest tubes HEENT: Normal external appearance of nose and ear. Oral cavity normal EYES: Pupils equal. Conjunctiva normal. NECK: JVD not raised. Mass not palpable. RESPIRATORY: Respiratory effort increased. Decreased breath sounds CARDIOVASCULAR: First and second sounds normal. No edema. ABDOMEN: Soft. Liver and spleen not palpable. No tenderness. No mass palpable. Moran catheter PSYCHIATRY: Alert and oriented x3. Mood and affect anxious INVESTIGATIONS, reviewed in the clinical context: May 11: White count 15.6 hemoglobin 14.7 platelets 260 sodium 133 potassium 5.2 BUN 22 creatinine 1.49 Previous labs: Creatinine 1.11 on 11/11/2022. Assessment and plan: - CABG on May 10. By Dr. Luis. [address] -CAD, with previous cardiac arrest Aspirin. Lipitor. Plavix. Lopressor. -Type 2 diabetes, on oral hypoglycemic Follow Accu-Cheks. Currently on clear liquid diet -Essential Hypertension Lopressor -Chronic congestive heart failure from systolic dysfunction EF 30 to-35% from underlying ischemic heart disease The present 25 mg twice a day. -Dyslipidemia -Leukocytosis, reactive expected outcome of surgery -Chronic kidney disease stage 3. Likely nephrosclerosis. Follow renal function closely -Large gastric bubble is seen on chest x-ray, Causing significant abdominal discomfort. Soda drinks. simethicone -Morbid obesity BMI 44.6 Weight loss measures Discussed with patient and the nurse. Thank you Past Medical History Past Medical History: Coronary Artery Disease (CAD), Chest Pain / Angina, Diabetes Mellitus, Hyperlipidemia, Hypertension, Myocardial Infarction ([place]) Additional Past Medical History / Comment(s): CAME IN VIA EMS IN CARDIAC ARREST- WENT INTO V-FIB AND WAS INTUBATED 11/06/22 Last Myocardial Infarction Date:: 11/06/22 History of Any Multi-Drug Resistant Organisms: None Reported Past Surgical History: Heart Catheterization With Stent, Orthopedic Surgery Additional Past Surgical History / Comment(s): RT LITTLE FINGER REATTACHED Past Anesthesia/Blood Transfusion Reactions: No Reported Reaction Date of Last Stent Placement:: 11/06/22 Smoking Status: Former smoker - Past Family History Mother Family Medical History: Myocardial Infarction ([place]) Medications and Allergies Home Medications Medication Instructions Recorded Confirmed Type Aspirin [Adult Low Dose Aspirin EC] 81 mg PO DAILY #30 tab 11/11/22 05/10/23 Rx Atorvastatin [Lipitor] 80 mg PO HS #30 tab 11/11/22 05/10/23 Rx Nitroglycerin Sl Tabs [Nitrostat] 0.4 mg SUBLINGUAL Q5M PRN #30 tab 11/11/22 05/06/23 Rx Spironolactone [Aldactone] 25 mg PO DAILY #30 tab 11/11/22 05/10/23 Rx lisinopriL [Zestril] 10 mg PO HS #30 tab 11/11/22 05/10/23 Rx Dapagliflozin Propanediol [Farxiga] 10 mg PO DAILY 04/26/23 05/10/23 History Metoprolol Tartrate [Lopressor] 25 mg PO QAM 05/06/23 05/10/23 History Allergies Allergy/AdvReac Type Severity Reaction Status Date / Time stainless steel Allergy Rash/Hives Uncoded 05/06/23 11:54
--- NOTE | 2023-05-11 13:40 | CONS ---
CONSULTATION HISTORY OF PRESENT ILLNESS: This is a 53-year-old gentleman, who underwent elective aortocoronary bypass surgery yesterday performed by Dr. Lanza. He had an ostial occlusion of LAD and underwent a single LUCERO to LAD graft. He had a prior ST-elevation [place] and had LAD stenting in October 2022. Subsequently, that vessel was occluded. He also has hypertension and hypercholesterolemia. Surgery was performed yesterday with an off-pump single coronary artery graft using left internal mammary artery graft to mid LAD. The patient has been extubated. He is hemodynamically stable, maintaining sinus rhythm, doing well. He has some incisional pain, but maintaining sinus rhythm, doing reasonably well on incentive spirometry. PAST MEDICAL HISTORY: Remarkable for, 1. CAD with prior ST-elevation [place] and stenting of LAD. 2. Hypertension. 3. Hyperlipidemia. 4. He also has type 2 diabetes mellitus, on Farxiga. HOME MEDICATIONS: Include, 1. Lisinopril. 2. Aldactone. 3. Metoprolol. 4. Farxiga. 5. Atorvastatin. 6. Aspirin. PHYSICAL EXAMINATION: VITAL SIGNS: Blood pressure is 130/70, pulse rate is 64, sinus. HEENT: Unremarkable. Fundus was not examined by me. NECK: Supple. There is no JVD. CARDIOVASCULAR: I do not hear a carotid bruit. HEART: Reveals S1, S2 heard normally. Heart sounds are heard somewhat distantly. No significant murmurs. LUNGS: Reveal fair air entry. ABDOMEN: Soft. LOWER EXTREMITIES: Reveal diminished pulses. CENTRAL NERVOUS SYSTEM: Grossly no focal deficits. IMPRESSION: 1. Status post aortocoronary bypass surgery. Progressing well. 2. History of anterior myocardial infarction and stent of the left anterior descending that was performed in the past. Repeat cardiac catheterization on April 28 revealed total occlusion of the ostium of the left anterior descending with some ipsilateral collaterals, but no significant disease in the circumflex or the dominant right coronary artery. RECOMMENDATIONS: Continue incentive spirometry, and pulmonary toilet. Same medications. We will continue to follow. MMODL / IJN: [id number] /
[2023-05-11 13:44] LABS: Glucose,Whole Blood 145 mg/dL (70-110)
[2023-05-11 14:04] VITALS: BMI 44.6
[2023-05-11 14:57] LABS: Glucose,Whole Blood 121 mg/dL (70-110)
[2023-05-11 15:54] LABS: Glucose,Whole Blood 131 mg/dL (70-110)
[2023-05-11 17:03] LABS: Glucose,Whole Blood 129 mg/dL (70-110)
[2023-05-11 18:18] LABS: Glucose,Whole Blood 121 mg/dL (70-110)
[2023-05-11 18:59] LABS: Glucose,Whole Blood 120 mg/dL (70-110)
[2023-05-11 20:09] LABS: Glucose,Whole Blood 127 mg/dL (70-110)
[2023-05-11] MEDS: ATORVASTATIN 80 MG TAB PO SCH (20:17)
[2023-05-11] MEDS: SENNOSIDES-DOCUSATE SODIUM 1 EACH TAB PO SCH (20:18)
[2023-05-11] MEDS: ACETAMINOPHEN TAB 325 MG TAB PO PRN (20:18)
[2023-05-11 20:59] LABS: Glucose,Whole Blood 139 mg/dL (70-110)
[2023-05-11 22:00] LABS: Glucose,Whole Blood 140 mg/dL (70-110)
[2023-05-11 23:05] LABS: Glucose,Whole Blood 133 mg/dL (70-110)
[2023-05-12 00:06] LABS: Glucose,Whole Blood 124 mg/dL (70-110)
[2023-05-12 01:04] LABS: Glucose,Whole Blood 129 mg/dL (70-110)
[2023-05-12 02:03] LABS: Glucose,Whole Blood 118 mg/dL (70-110)
[2023-05-12] MEDS: INSULIN REGULAR 100 UNIT in SODIUM CHLORIDE 0.9% 100 ML IV SCH (02:06)
[2023-05-12] MEDS: HYDROcodone/APAP 10-325MG 1 EACH TAB PO PRN ×3 (02:06→16:57)
[2023-05-12 03:02] LABS: Glucose,Whole Blood 113 mg/dL (70-110)
[2023-05-12 04:10] LABS: Glucose,Whole Blood 124 mg/dL (70-110)
[2023-05-12 04:20] LABS: Basophils % (A) 0 %; Eosinophils # (A) 0.1 k/uL (0-0.7); Eosinophils % (A) 1 %; HCT 41.9 % (39.0-53.0); HGB 13.8 gm/dL (13.0-17.5); Lymphocytes # (A) 1.4 k/uL (1.0-4.8); Lymphocytes % (A) 9 %; MCH 30.2 pg (25.0-35.0); MCHC 32.8 g/dL (31.0-37.0); Mean Platelet Volume 7.1; Monocytes # (A) 0.5 k/uL (0-1.0); Monocytes % (A) 3 %; Neutrophils # (A) 12.8 k/uL (1.3-7.7); Neutrophils % (A) 85 %; Platelet Count 200 k/uL (150-450); RBC 4.55 m/uL (4.30-5.90); WBC 15.1 k/uL (3.8-10.6)
[2023-05-12 04:29] LABS: Ionized Calcium 4.9 mg/dL (4.5-5.3)
[2023-05-12] MEDS: ACETAMINOPHEN TAB 325 MG TAB PO PRN ×2 (04:30→22:23)
[2023-05-12 04:35] LABS: ALT 28 U/L (4-49); AST 40 U/L (17-59); African American GFR (CKD) 69 (>60 ml/min/1.73 sqM); Albumin 3.4 g/dL (3.5-5.0); Alkaline Phosphatase 52 U/L (38-126); Anion Gap 11 mmol/L; Blood Urea Nitrogen 16 mg/dL (9-20); Calcium 9.1 mg/dL (8.4-10.2); Carbon Dioxide 17 mmol/L (22-30); Chloride 103 mmol/L (98-107); Glucose 125 mg/dL (74-99); Non-African American GFR(CKD) 60 (>60 ml/min/1.73 sqM); Potassium 4.7 mmol/L (3.5-5.1); Sodium 131 mmol/L (137-145); Total Bilirubin 1.2 mg/dL (0.2-1.3); Total Protein 6.5 g/dL (6.3-8.2)
[2023-05-12 05:06] LABS: Glucose,Whole Blood 123 mg/dL (70-110)
[2023-05-12 05:56] LABS: Glucose,Whole Blood 138 mg/dL (70-110)
[2023-05-12] MEDS: METOPROLOL TARTRATE 25 MG TAB PO SCH (06:29)
[2023-05-12] MEDS: PANTOPRAZOLE 40 MG TABLET PO SCH (06:30)
[2023-05-12] MEDS ORDERED: METOCLOPRAMIDE 5 MG/ML 2 ML VIAL IVP STA (06:43)
[2023-05-12 07:11] LABS: Glucose,Whole Blood 137 mg/dL (70-110)
[2023-05-12] MEDS ORDERED: METOPROLOL TARTRATE 25 MG TAB PO STA (07:36)
[2023-05-12] MEDS: IPRATROPIUM-ALBUTEROL 3 ML NEB INHALATION SCH ×4 (07:39→20:18)
[2023-05-12] MEDS ORDERED: FUROSEMIDE 10 MG/ML 2 ML VIAL IV ONE (07:45)
--- NOTE | 2023-05-12 07:52 | P.PN ---
Subjective Progress Note Date: 05/12/23 Principal diagnosis: Coronary artery disease with previous STEMI and LAD stenting in October 2022, currently occluded LAD stent, unstable angina. Previous medical history of hypertension, hyperlipidemia, ischemic cardiomyopathy, type 2 diabetes, obesity, previous tobacco dependence POD #2 off-pump single coronary artery bypass grafting using this skeletonized left internal mammary artery to the mid left anterior descending artery, occlusion of the left atrial appendage using a 40 mm AtriClip, graft flow measurements using the Medistim system The patient was seen and examined this morning sitting up in a recliner in the intensive care unit in no acute distress. States pain is mostly controlled, denies shortness of breath. Remains in sinus rhythm, hemodynamically stable on no inotropes or pressors. Currently on room air with oxygen saturation in the high 90s, able to achieve 1000 mL on his incentive spirometry. Chest x-ray, lab work reviewed. Left brachial arterial line, left pleural chest tubes present. Has been ambulatory out to the hallway. His only complaint is of pain at the chest tube site. No other new concerns. Objective - Vital Signs Vital signs: Vital Signs Temp 98.4 F 05/12/23 04:00 Pulse 93 05/12/23 07:41 Resp 05/12/23 07:00 BP 117/73 05/12/23 07:00 Pulse Ox 96 05/12/23 07:42 FiO2 05/12/23 07:42 Intake & Output 05/11/23 05/12/23 05/12/23 18:59 06:59 18:59 Intake Total 5393.050 2798.719 23 Output Total 740 895 Balance 573.302 190.719 23 Weight 149.3 kg 150 kg Intake: IV 722 296 23 0.9 520 40 Sodium Chloride 0.9% 1, 220 20 000 ml @ 20 mls/hr IV . Q24H [facility] Rx#:[id number] ceFAZolin 3 gm In Sodium 100 Chloride 0.9% 100 ml @ Per Protocol 200 mls/hr IVPB ONCE ONE Rx#: [id number] co/ci 30 pressure bags 72 36 3 Intake, IV Titration 391.302 39.719 Amount Amiodarone 450 mg In 309.728 Dextrose 5% in Water 250 ml @ 0.5 MG/MIN 16.667 mls/hr IV .Q15H [facility] Rx#: [id number] Insulin Regular 100 unit 53.699 39.719 In Sodium Chloride 0.9% 100 ml @ Per Protocol IV .Q0M [facility] Rx#:[id number] Nitroglycerin-D5w Pmx 50 27.875 mg In Dextrose/Water 1 250ml.bag @ 5 MCG/MIN 1.5 mls/hr IV .Q24H [facility] Rx#: [id number] Oral 200 750 Output: Chest Tube Drainage [address] 5 Urine 485 825 Other: Voiding Method Indwelling Catheter Urinal ABP, PAP, CO, CI - Last Documented Arterial Blood Pressure 116/59 Pulmonary Artery Pressure 22/15 Cardiac Output 6.3 Cardiac Index 2.5 - Exam CONSTITUTIONAL: Appears comfortable, cooperative, no acute distress RESPIRATORY: Lungs sounds diminished bilaterally. Respirations even, nonlabored. Currently on room air with oxygen saturation 96%. Able to achieve 1000 mL on incentive spirometry. Strong cough. CARDIOVASCULAR: S1, S2 present. Regular rate and rhythm, sinus rhythm on telemetry. Sternum stable. Palpable peripheral pulses bilaterally. Trace gen eralized edema present. No calf pain or tenderness noted. Heart hugger in place with patient demonstrating appropriate use. Antiembolism stockings, SCDs present. GASTROINTESTINAL: Abdomen soft, nontender, nondistended. Hypoactive bowel sounds present 4 quadrants. Tolerating diet. Positive belching, denies flatus GENITOURINARY: Moran discontinued yesterday, continues to void, output 1310 mL in the last 24 hours INTEGUMENTARY: Skin is warm and dry with evidence of good perfusion. Anterior chest incision well approximated and covered with dry intact dressing NEUROLOGIC: Cranial nerves II through XII intact MUSKULOSKELETAL: Able to move all extremities, strength equal bilaterally PSYCHIATRIC: Alert and oriented to person place and time, appropriate affect, intact judgment and insight INVASIVE LINES AND TUBES: Left pleural chest tubes present and connected to wall suction, no air leaks present, 50 mL serosanguineous drainage overnight, 350 mL in the last 24 hours. Left brachial arterial line present - Allied health notes Allied health notes reviewed: nursing - Labs CBC & Chem 7: 05/12/23 04:05 05/12/23 04:05 Labs: Abnormal Lab Results - Last 24 Hours (Table) 05/11/23 05/11/23 05/11/23 Range/Units 07:57 09:53 11:17 WBC (3.8-10.6) k/uL Neutrophils # (1.3-7.7) k/uL Sodium (137-145) mmol/L Carbon Dioxide (22-30) mmol/L Creatinine (0.66-1.25) mg/dL Glucose (74-99) mg/dL POC Glucose (mg/dL) 132 H 132 H 115 H (70-110) mg/dL Albumin (3.5-5.0) g/dL 05/11/23 05/11/23 05/11/23 Range/Units 12:56 13:42 14:56 WBC (3.8-10.6) k/uL Neutrophils # (1.3-7.7) k/uL Sodium (137-145) mmol/L Carbon Dioxide (22-30) mmol/L Creatinine (0.66-1.25) mg/dL Glucose (74-99) mg/dL POC Glucose (mg/dL) 159 H 145 H 121 H (70-110) mg/dL Albumin (3.5-5.0) g/dL 05/11/23 05/11/23 05/11/23 Range/Units 15:52 17:02 18:16 WBC (3.8-10.6) k/uL Neutrophils # (1.3-7.7) k/uL Sodium (137-145) mmol/L Carbon Dioxide (22-30) mmol/L Creatinine (0.66-1.25) mg/dL Glucose (74-99) mg/dL POC Glucose (mg/dL) 131 H 129 H 121 H (70-110) mg/dL Albumin (3.5-5.0) g/dL 05/11/23 05/11/23 05/11/23 Range/Units 18:57 20:07 20:58 WBC (3.8-10.6) k/uL Neutrophils # (1.3-7.7) k/uL Sodium (137-145) mmol/L Carbon Dioxide (22-30) mmol/L Creatinine (0.66-1.25) mg/dL Glucose (74-99) mg/dL POC Glucose (mg/dL) 120 H 127 H 139 H (70-110) mg/dL Albumin (3.5-5.0) g/dL 05/11/23 05/11/23 05/12/23 Range/Units 21:58 23:03 00:03 WBC (3.8-10.6) k/uL Neutrophils # (1.3-7.7) k/uL Sodium (137-145) mmol/L Carbon Dioxide (22-30) mmol/L Creatinine (0.66-1.25) mg/dL Glucose (74-99) mg/dL POC Glucose (mg/dL) 140 H 133 H 124 H (70-110) mg/dL Albumin (3.5-5.0) g/dL 05/12/23 05/12/23 05/12/23 Range/Units 01:03 02:02 03:01 WBC (3.8-10.6) k/uL Neutrophils # (1.3-7.7) k/uL Sodium (137-145) mmol/L Carbon Dioxide (22-30) mmol/L Creatinine (0.66-1.25) mg/dL Glucose (74-99) mg/dL POC Glucose (mg/dL) 129 H 118 H 113 H (70-110) mg/dL Albumin (3.5-5.0) g/dL 05/12/23 05/12/23 05/12/23 Range/Units 04:05 04:05 04:08 WBC 15.1 H (3.8-10.6) k/uL Neutrophils # 12.8 H (1.3-7.7) k/uL Sodium 131 L (137-145) mmol/L Carbon Dioxide 17 L (22-30) mmol/L Creatinine 1.35 H (0.66-1.25) mg/dL Glucose 125 H (74-99) mg/dL POC Glucose (mg/dL) 124 H (70-110) mg/dL Albumin 3.4 L (3.5-5.0) g/dL 05/12/23 05/12/23 05/12/23 Range/Units 05:05 05:55 07:10 WBC (3.8-10.6) k/uL Neutrophils # (1.3-7.7) k/uL Sodium (137-145) mmol/L Carbon Dioxide (22-30) mmol/L Creatinine (0.66-1.25) mg/dL Glucose (74-99) mg/dL POC Glucose (mg/dL) 123 H 138 H 137 H (70-110) mg/dL Albumin (3.5-5.0) g/dL - Imaging and Cardiology Chest x-ray: image reviewed Assessment and Plan Assessment: Coronary artery disease with previous STEMI and LAD stenting in October 2022, currently occluded LAD stent, unstable angina, status post single-vessel CABG History of ischemic cardiomyopathy, EF 30-35% in October 2022, improvement in most recent echo with EF 50-55% History of hypertension Hyperlipidemia, treated, cholesterol 134, LDL 49, triglycerides 214 Type 2 diabetes, preoperative hemoglobin A1c 6.5% Obesity Previous tobacco dependence, preoperative FEV1 107% of predicted Plan: Continue to maximize medical therapy with aspirin, statin, Plavix, beta jono. Will increase beta jono therapy as tolerated, increased to 50 mg BID today Continue amiodarone for A. fib prophylaxis Encourage incentive spirometry use 10 times every hour while awake. Bronchodilators per pulmonology Increase activity, ambulate as tolerated. PT/OT/cardiac rehab consulted We'll monitor daily labs and x-rays. Electrolyte replacement per protocol. Will give IV lasix today GI/DVT prophylaxis Pain control with current medication regimen Insulin management per internal medicine. Patient is diabetic and needs tight blood culture control to prevent infection Will discontinue left pleural chest tube Continue to record strict accurate intake and output Daily weights Will place transfer orders for [facility], may transfer when bed available More recommendations to follow
--- NOTE | 2023-05-12 08:03 | XR ---
EXAMINATION TYPE: XR chest 1V portable DATE OF EXAM: 05/12/2023 HISTORY: Post Operative Cardiac Surgery COMPARISON: 05/11/2023 TECHNIQUE: Single view of the chest is submitted. FINDINGS: Demonstrated are scattered senescent parenchymal change. Basilar atelectasis or infiltrates persist. Lung volumes are diminished. No sizable pneumothorax. Lef t basilar pleural catheter noted. The heart is stable. Hilar and mediastinal structures are within normal limits. Degenerative changes are seen of the dorsal spine. IMPRESSION: 1. Basilar atelectasis or infiltrates persist. Lung volumes are diminished. No sizable pneumothorax. Left basilar pleural catheter noted.
[2023-05-12 08:20] LABS: Glucose,Whole Blood 125 mg/dL (70-110)
[2023-05-12] MEDS: HEPARIN SODIUM,PORCINE 5,000 UNIT/ML 1 ML VIAL SQ SCH ×3 (08:20→23:57)
[2023-05-12] MEDS: AMIODARONE 200 MG TAB PO SCH ×2 (08:21→20:35)
[2023-05-12] MEDS: CLOPIDOGREL 75 MG TAB PO SCH (08:21)
[2023-05-12] MEDS: ASPIRIN 325 MG TAB PO SCH (08:21)
[2023-05-12] MEDS: SIMETHICONE 40 MG/0.6 ML DROPS 2,000 MG/30 ML BOTTLE PO SCH ×4 (08:50→20:36)
--- NOTE | 2023-05-12 10:21 | P.PN ---
Subjective Progress Note Date: 05/12/23 53-year-old male patient post bypass surgery. The patient underwent elective coronary artery bypass surgery with LUCERO to LAD. The patient is currently in the intensive care unit, intubated on a mechanical ventilator. The patient was seen in the ICU. The patient is currently on propofol running at 60 mcg/kg/m. The blood pressure is elevated and the patient is currently on chiropractic's at 8 mg an hour. Hemodynamic parameters included a cardiac output of 9.1 with an index of 3.5. PA pressures of 42/26. The patient is producing adequate amount of urine output. The patient has a left pleural and mediastinal chest tube, output has been 100 mL of bloody output from each chest tube. The chest x-ray showed adequate expansion of both lungs. ET tube and [place] catheter in good location. The patient is calm and comfortable and 6 is a mechanical ventilator. The blood gases were done on assist-control mode of 14, tidal volume of 600, FiO2 of 100% and a PEEP of 10 showed a pH of 7.29 with a pCO2 of 47 and pO2 of 307. FiO2 was dropped down to 50%. The patient is known to have CAD, previous cardiac arrest, diabetes mellitus type 2, systolic heart failure, hyperlipidemia and hypertension. Preoperative cardiac catheterization showed LAD disease that was totally occluded. The patient had also collaterals. No disease involving the circumflex or RCA. LV was mildly impaired. 05/11, the patient is being seen for a follow-up. The patient is currently postop day #1. Wean off the mechanical ventilator and the patient was extubated without any major difficulties. This morning, he is on room air oxygen. Sitting up on a chair. Using the incentive spirometer. Cardiac output is 0.1 with an index of 2.4. Pulmonary artery pressures of 23/17. Adequate urine output. Pulse ox 97% on room air oxygen. No focal neurological deficits. No respiratory difficulties. Is currently off thecleviprex drip. He is also on insulin drip at 4.5 units an hour. Cardiac rhythm is sinus. The chest x-ray from today showing adequate expansion of both lungs. No evidence of any pneu mothorax. The patient has a total and the left pleural and the mediastinal chest tube. Output from the chest tubes have been essentially minimal overnight. On his x-ray, he has a large gastric bubble. Atelectatic changes are seen in lung bases bilaterally. [place]Vc[place] Manuel catheter is in a good location. The blood work from today shows a hemoglobin of 14.7, white cell count of 15.6, sodium is at 133, potassium is at 5.2, BUN is at 24 with a creatinine of 1.49. LFTs are within normal limits. 05/12 2023, the patient is postop day #2. The patient remains on room air oxygen. The mediastinal chest tube was removed yesterday and a tortuous are to be removed today. Using incentive spirometer. Still on insulin drip and this will be transitioned to a sliding scale coverage. No other new complaints. No cardiac arrhythmias. The cardiac rhythm Is sinus. Surgical 1 site is dry and clean. No focal neurological deficits at this point in time. He is achieving approximately thousand on his incentive spirometer. Urine output is adequate. Blood work from today shows a white cell count of 15.1, hemoglobin 15.8, BMs at 60 with a creatinine of 1.3 which is stable. Objective - Vital Signs Vital signs: Vital Signs Temp 98.4 F 05/12/23 04:00 Pulse 92 05/12/23 07:53 Resp 23 05/12/23 07:00 BP 117/73 05/12/23 07:00 Pulse Ox 96 05/12/23 07:42 FiO2 21 05/12/23 07:42 Intake & Output 05/11/23 05/12/23 05/12/23 18:59 06:59 18:59 Intake Total 2509.796 0832.719 32.629 Output Total 740 895 Balance 573.302 190.719 32.629 Weight 149.3 kg 150 kg Intake: IV 722 296 23 0.9 520 40 Sodium Chloride 0.9% 1, 220 20 000 ml @ 20 mls/hr IV . Q24H [facility] Rx#:[id number] ceFAZolin 3 gm In Sodium 100 Chloride 0.9% 100 ml @ Per Protocol 200 mls/hr IVPB ONCE ONE Rx#: [id number] co/ci 30 pressure bags 72 36 3 Intake, IV Titration 391.302 39.719 9.629 Amount Amiodarone 450 mg In 309.728 Dextrose 5% in Water 250 ml @ 0.5 MG/MIN 16.667 mls/hr IV .Q15H PRN Rx#: [id number] Insulin Regular 100 unit 53.699 39.719 9.629 In Sodium Chloride 0.9% 100 ml @ Per Protocol IV .Q0M [facility] Rx#:[id number] Nitroglycerin-D5w Pmx 50 27.875 mg In Dextrose/Water 1 250ml.bag @ 5 MCG/MIN 1.5 mls/hr IV .Q24H [facility] Rx#: [id number] Oral 200 750 Output: Chest Tube Drainage [address] 5 Urine 485 825 Other: Voiding Method Indwelling Catheter Urinal ABP, PAP, CO, CI - Last Documented Arterial Blood Pressure 116/59 Pulmonary Artery Pressure 22/15 Cardiac Output 6.3 Cardiac Index 2.5 - Exam CONSTITUTIONAL: Appears comfortable, cooperative, no acute distress RESPIRATORY: Lungs sounds diminished bilaterally. Respirations even, nonlabored. Currently on room air with oxygen saturation 96%. Able to achieve 1000 mL on incentive spirometry. Strong cough. CARDIOVASCULAR: S1, S2 present. Regular rate and rhythm, sinus rhythm on telemetry. Sternum stable. Palpable peripheral pulses bilaterally. Trace generalized edema present. No calf pain or tenderness noted. Heart hugger in place with patient demonstrating appropriate use. Antiembolism stockings, SCDs present. GASTROINTESTINAL: Abdomen soft, nontender, nondistended. Hypoactive bowel so unds present 4 quadrants. Tolerating diet. Positive belching, denies flatus GENITOURINARY: Moran discontinued yesterday, continues to void, output 1310 mL in the last 24 hours INTEGUMENTARY: Skin is warm and dry with evidence of good perfusion. Anterior chest incision well approximated and covered with dry intact dressing NEUROLOGIC: Cranial nerves II through XII intact MUSKULOSKELETAL: Able to move all extremities, strength equal bilaterally PSYCHIATRIC: Alert and oriented to person place and time, appropriate affect, intact judgment and insight INVASIVE LINES AND TUBES: Left pleural chest tubes present and connected to wall suction, no air leaks present, 50 mL serosanguineous drainage overnight, 350 mL in the last 24 hours. Left brachial arterial line present - Labs CBC & Chem 7: 05/12/23 04:05 05/12/23 04:05 Labs: Abnormal Lab Results - Last 24 Hours (Table) 05/11/23 05/11/23 05/11/23 Range/Units 09:53 11:17 12:56 WBC (3.8-10.6) k/uL Neutrophils # (1.3-7.7) k/uL Sodium (137-145) mmol/L Carbon Dioxide (22-30) mmol/L Creatinine (0.66-1.25) mg/dL Glucose (74-99) mg/dL POC Glucose (mg/dL) 132 H 115 H 159 H (70-110) mg/dL Albumin (3.5-5.0) g/dL 05/11/23 05/11/23 05/11/23 Range/Units 13:42 14:56 15:52 WBC (3.8-10.6) k/uL Neutrophils # (1.3-7.7) k/uL Sodium (137-145) mmol/L Carbon Dioxide (22-30) mmol/L Creatinine (0.66-1.25) mg/dL Glucose (74-99) mg/dL POC Glucose (mg/dL) 145 H 121 H 131 H (70-110) mg/dL Albumin (3.5-5.0) g/dL 05/11/23 05/11/23 05/11/23 Range/Units 17:02 18:16 18:57 WBC (3.8-10.6) k/uL Neutrophils # (1.3-7.7) k/uL Sodium (137-145) mmol/L Carbon Dioxide (22-30) mmol/L Creatinine (0.66-1.25) mg/dL Glucose (74-99) mg/dL POC Glucose (mg/dL) 129 H 121 H 120 H (70-110) mg/dL Albumin (3.5-5.0) g/dL 05/11/23 05/11/23 05/11/23 Range/Units 20:07 20:58 21:58 WBC (3.8-10.6) k/uL Neutrophils # (1.3-7.7) k/uL Sodium (137-145) mmol/L Carbon Dioxide (22-30) mmol/L Creatinine (0.66-1.25) mg/dL Glucose (74-99) mg/dL POC Glucose (mg/dL) 127 H 139 H 140 H (70-110) mg/dL Albumin (3.5-5.0) g/dL 05/11/23 05/12/23 05/12/23 Range/Units 23:03 00:03 01:03 WBC (3.8-10.6) k/uL Neutrophils # (1.3-7.7) k/uL Sodium (137-145) mmol/L Carbon Dioxide (22-30) mmol/L Creatinine (0.66-1.25) mg/dL Glucose (74-99) mg/dL POC Glucose (mg/dL) 133 H 124 H 129 H (70-110) mg/dL Albumin (3.5-5.0) g/dL 05/12/23 05/12/23 05/12/23 Range/Units 02:02 03:01 04:05 WBC 15.1 H (3.8-10.6) k/uL Neutrophils # 12.8 H (1.3-7.7) k/uL Sodium (137-145) mmol/L Carbon Dioxide (22-30) mmol/L Creatinine (0.66-1.25) mg/dL Glucose (74-99) mg/dL POC Glucose (mg/dL) 118 H 113 H (70-110) mg/dL Albumin (3.5-5.0) g/dL 05/12/23 05/12/23 05/12/23 Range/Units 04:05 04:08 05:05 WBC (3.8-10.6) k/uL Neutrophils # (1.3-7.7) k/uL Sodium 131 L (137-145) mmol/L Carbon Dioxide 17 L (22-30) mmol/L Creatinine 1.35 H (0.66-1.25) mg/dL Glucose 125 H (74-99) mg/dL POC Glucose (mg/dL) 124 H 123 H (70-110) mg/dL Albumin 3.4 L (3.5-5.0) g/dL 05/12/23 05/12/23 05/12/23 Range/Units 05:55 07:10 08:18 WBC (3.8-10.6) k/uL Neutrophils # (1.3-7.7) k/uL Sodium (137-145) mmol/L Carbon Dioxide (22-30) mmol/L Creatinine (0.66-1.25) mg/dL Glucose (74-99) mg/dL POC Glucose (mg/dL) 138 H 137 H 125 H (70-110) mg/dL Albumin (3.5-5.0) g/dL Assessment and Plan Plan: Coronary artery bypass surgery/LUCERO to LAD, patient is postop day #2. The patient is hemodynamically stable, extubated. Hemodynamically parameters are adequate. Chest x-ray was noted. Patient is currently on room air oxygen. Coronary artery disease [place] artery, status post PCI left anterior descending coronary artery in February 2023 History of ischemic cardiomyopathy, most recent transthoracic 2-D echocardiogram ejection fraction of 50-55% Hypertension, currently off the cleviprex infusion for blood pressure control History of cardiac arrest with ACLS and return of spontaneous circulation in October 2022 Hyperlipidemia Diabetes mellitus type 2 currently on insulin drip for blood sugar control Remote history of nicotine dependence, quit smoking in October 2022 Obesity with a BMI of 44.1 kg/m Acute kidney injury, creatinine is stable and the patient's urine output is adequate. His nonoliguric at this point in time. Plan She is currently on room air oxygen, rest or status is stable and he is using the incentive spirometer. Chest x-ray shows no evidence of any pneumothorax We'll remove the left pleural chest tube Monitor hemodynamics, [place] catheter already removed Patient is currently on aspirin, Plavix, and is also on metoprolol 25 mg by mouth twice a day. He is on amiodarone also for A. fib prophylaxis. IV fluids are currently of KVO. Is on [place] for pain control. We'll continue to follow.
--- NOTE | 2023-05-12 10:32 | P.PN ---
Progress Note - Text Progress Note Date: 05/10/23 Late note: 5 meter walk test completed the morning of surgery 05/10/23: #1 3.93 sec #2 3.58 sec #3 3.58 sec Patient tolerated well.
[2023-05-12 11:18] LABS: Glucose,Whole Blood 116 mg/dL (70-110)
[2023-05-12] MEDS: INSULIN ASPART (NovoLOG) 100 UNIT/ML VIAL SQ SCH ×3 (11:42→20:24)
--- NOTE | 2023-05-12 12:51 | P.PN ---
Progress Note - Text Progress Note Date: 05/12/23 - History of Present Illness Patient is a 53-year-old male with history of CAD status post stent, recent cardiac arrest, type 2 diabetes, hypertension, systolic heart failure, dyslipidemia presenting for elective CABG. [facility] physicians has been consulted for medical management. Patient is currently in medical ICU. Intubated and sedated. May 11: I assumed care of the patient today. ICU. Sitting up in a recliner. Abdominal discomfort from a large gastric bubble. Try some aerated soda. simethicon drops.. Patient on clear liquids.. Sinus rhythm. 2 L nasal cannula. Patient taken off insulin drip this morning. Moran catheter in place. [address] May 12: Sitting up in a chair. Chest tubes have been pulled out. On room air. Did walk about 10:15 steps. Moran has been taken out. Eating better. Breathing stable. Active Medications Acetaminophen (Acetaminophen Tab 325 Mg Tab) 650 mg PO Q4HR PRN PRN Reason: Fever and/ or Pain Last Admin: 05/12/23 04:30 Dose: 650 mg Hydrocodone Bitart/Acetaminophen (Hydrocodone/Apap 10-325mg 1 Each Tab) 1 each PO Q4HR PRN PRN Reason: Moderate to Severe Pain (4-10) Last Admin: 05/12/23 11:42 Dose: 1 each Hydrocodone Bitart/Acetaminophen (Hydrocodone/Apap 7.5-325mg 1 Each Tab) 1 each PO Q4HR PRN PRN Reason: Moderate Pain (Scale 4 to 6) Albuterol/Ipratropium (Ipratropium-Albuterol 3 Ml Neb) 3 ml INHALATION RT-Q2H PRN PRN Reason: Shortness Of Breath Or Wheezing Albuterol/Ipratropium (Ipratropium-Albuterol 3 Ml Neb) 3 ml INHALATION RT-QID [facility] Last Admin: 05/12/23 11:24 Dose: 3 ml Amiodarone HCl (Amiodarone 200 Mg Tab) 400 mg PO BID [facility] Last Admin: 05/12/23 08:21 Dose: 400 mg Aspirin (Aspirin 325 Mg Tab) 325 mg PO DAILY [facility] Last Admin: 05/12/23 08:21 Dose: 325 mg Atorvastatin Calcium (Atorvastatin 80 Mg Tab) 80 mg PO HS [facility] Last Admin: 05/11/23 20:17 Dose: 80 mg Benzocaine/Menthol (Benzocaine/Menthol Lozeng 1 Each Lozenge) 1 each MUCOUS MEM Q2H PRN PRN Reason: Sore Throat Bisacodyl (Bisacodyl 10 Mg Supp) 10 mg RECTAL DAILY PRN PRN Reason: Constipation Clopidogrel Bisulfate (Clopidogrel 75 Mg Tab) 75 mg PO DAILY [facility] Last Admin: 05/12/23 08:21 Dose: 75 mg Dextrose/Water (Dextrose 50% Syringe 50 Ml) 25 ml IVP PER PROTOCOL PRN; Protocol PRN Reason: Hypoglycemia Dextrose/Water (Dextrose 50% Syringe 50 Ml) 50 ml IVP PER PROTOCOL PRN; Protocol PRN Reason: Hypoglycemia Heparin Sodium (Porcine) (Heparin Sodium,Porcine 5,000 Unit/Ml 1 Ml Vial) 5,000 unit SQ Q8HR [facility] Last Admin: 05/12/23 08:20 Dose: 5,000 unit Amiodarone HCl 150 mg/ (Dextrose/Water) 103 mls @ 618 mls/hr IV .Q10M PRN; Protocol PRN Reason: A.FIB/FLUTTER Insulin Aspart (Insulin Aspart (Novolog) 100 Unit/Ml Vial) 0 unit SQ ACHS [facility]; Protocol Last Admin: 05/12/23 11:42 Dose: Not Given Magnesium Hydroxide (Magnesium Hydroxide 2,400 Mg/30 Ml Cup) 2,400 mg PO BID PRN PRN Reason: Constipation Metoprolol Tartrate (Metoprolol Tartrate 50 Mg Tab) 50 mg PO BID [facility] Miscellaneous Information (Magnesium Replacement Protocol 1 Each Misc) 1 each MISCELLANE DAILY PRN; Protocol PRN Reason: Per Protocol Miscellaneous Information (Potassium Replacement Protocol 1 Each Misc) 1 each MISCELLANE DAILY PRN; Protocol PRN Reason: Per Protocol Ondansetron HCl (Ondansetron 4 Mg/2 Ml Vial) 4 mg IVP Q6HR PRN PRN Reason: Nausea And Vomiting Pantoprazole Sodium (Pantoprazole 40 Mg Tablet) 40 mg PO AC-BRKFST [facility] Last Admin: 05/12/23 06:30 Dose: 40 mg Senna/Docusate Sodium (Sennosides-Docusate Sodium 1 Each Tab) 2 each PO HS [facility] Last Admin: 05/11/23 20:18 Dose: 2 each Simethicone (Simethicone 40 Mg/0.6 Ml Drops 2,000 Mg/30 Ml Bottle) 40 mg PO QID [facility] Last Admin: 05/12/23 08:50 Dose: 40 mg Sodium Chloride (Sodium Chloride 0.9% Flush 10 Ml Syringe) 10 ml IV BID [facility] Last Admin: 05/12/23 08:22 Dose: Not Given On examination: VITAL SIGNS: 99.7, 92, 19, 111/57, 96% room air GENERAL APPEARANCE: BMI 44.6, up in a recliner. No chest tubes. HEENT: Normal external appearance of nose and ear. Oral cavity normal EYES: Pupils equal. Conjunctiva normal. NECK: JVD not raised. Mass not palpable. RESPIRATORY: Respiratory effort increased. Decreased breath sounds CARDIOVASCULAR: First and second sounds normal. No edema. ABDOMEN: Soft. Liver and spleen not palpable. No tenderness. No mass palpable. PSYCHIATRY: Alert and oriented x3. Mood and affect normal INVESTIGATIONS, reviewed in the clinical context: May 12: White count 15.1 hemoglobin 13.8 platelets 200 sodium 131 potassium 4.7 BUN 16 creatinine 1.35 May 11: White count 15.6 hemoglobin 14.7 platelets 260 sodium 133 potassium 5.2 BUN 22 creatinine 1.49 Previous labs: Creatinine 1.11 on 11/11/2022. Assessment and plan: - CABG on May 10. By Dr. Luis. Chest tubes discontinued -CAD, with previous cardiac arrest Aspirin. Lipitor. Plavix. Lopressor. -Type 2 diabetes, on oral hypoglycemic Follow Accu-Cheks. Diet advanced -Essential Hypertension Lopressor -Chronic congestive heart failure from systolic dysfunction EF 30 to-35% from underlying ischemic heart disease Lopressor 25 mg twice a day. -Dyslipidemia Lipitor -Leukocytosis, reactive, expected outcome of surgery -Chronic kidney disease stage 3. Likely nephrosclerosis. Follow renal function closely -Large gastric bubble is seen on chest x-ray, Causing significant abdominal discomfort.: Improved -Morbid obesity BMI 44.6 Weight loss measures -Full code Increase activity as tolerated. Discussed. Thank you Past Medical History Past Medical History: Coronary Artery Disease (CAD), Chest Pain / Angina, Diabetes Mellitus, Hyperlipidemia, Hypertension, Myocardial Infarction ([place]) Additional Past Medical History / Comment(s): CAME IN VIA EMS IN CARDIAC ARREST- WENT INTO V-FIB AND WAS INTUBATED 11/06/22 Last Myocardial Infarction Date:: 11/06/22 History of Any Multi-Drug Resistant Organisms: None Reported Past Surgical History: Heart Catheterization With Stent, Orthopedic Surgery Additional Past Surgical History / Comment(s): RT LITTLE FINGER REATTACHED Past Anesthesia/Blood Transfusion Reactions: No Reported Reaction Date of Last Stent Placement:: 11/06/22 Smoking Status: Former smoker - Past Family History Mother Family Medical History: Myocardial Infarction ([place]) Medications and Allergies Home Medications Medication Instructions Recorded Confirmed Type Aspirin [Adult Low Dose Aspirin EC] 81 mg PO DAILY #30 tab 11/11/22 05/10/23 Rx Atorvastatin [Lipitor] 80 mg PO HS #30 tab 11/11/22 05/10/23 Rx Nitroglycerin Sl Tabs [Nitrostat] 0.4 mg SUBLINGUAL Q5M PRN #30 tab 11/11/22 05/06/23 Rx Spironolactone [Aldactone] 25 mg PO DAILY #30 tab 11/11/22 05/10/23 Rx lisinopriL [Zestril] 10 mg PO HS #30 tab 11/11/22 05/10/23 Rx Dapagliflozin Propanediol [Farxiga] 10 mg PO DAILY 04/26/23 05/10/23 History Metoprolol Tartrate [Lopressor] 25 mg PO QAM 05/06/23 05/10/23 History Allergies Allergy/AdvReac Type Severity Reaction Status Date / Time stainless steel Allergy Rash/Hives Uncoded 05/06/23 11:54
--- NOTE | 2023-05-12 13:51 | P.PN ---
Subjective Progress Note Date: 05/12/23 ASSESSMENT CAD status post CABG Type 2 diabetes Essential hypertension Systolic heart failure PLAN Continue his current cardiac medications Recommendations as per cardiac surgery We'll continue to follow SUBJECTIVE Patient is doing well from cardiovascular standpoint. He denies having any chest pain chest pressure or shortness of breath. He is off IV drips this morning. Blood pressure 120/71, heart rate 71 bpm Labs hemoglobin 13.8, BUNs 60, creatinine 1.35. Creatinine is at baseline PHYSICAL EXAMINATION Vital signs reviewed. CONSTITUTIONAL: No apparent distress. HEENT: Pupils are reactive to light. No pallor, no icterus. HEART EXAMINATION: Regular rate and rhythm. S1, S2 heard. No murmurs, gallops or rub. Chest incision is intact and healing well. CHEST EXAMINATION: Lungs are clear to auscultation. No crackles, wheezing or ronchi. VASCULAR and EXTREMITIES: No swelling. ABDOMEN: Soft, nontender. Positive bowel sounds. NEUROLOGIC EXAMINATION: No focal neurological deficit. Detialed neuro exam was not performed. Objective - Vital Signs Vital signs: Vital Signs Temp 100.5 F H 05/12/23 12:00 Pulse 90 05/12/23 12:00 Resp 24 05/12/23 12:00 BP 120/71 05/12/23 12:00 Pulse Ox 94 L 05/12/23 12:00 FiO2 21 05/12/23 07:42 Intake & Output 05/11/23 05/12/23 05/12/23 18:59 06:59 18:59 Intake Total 3039.429 5060.719 105.629 Output Total 740 895 850 Balance 573.302 190.719 -744.371 Weight 149.3 kg 150 kg Intake: IV 722 296 96 0.9 520 40 Sodium Chloride 0.9% 1, 220 90 000 ml @ 20 mls/hr IV . Q24H [facility] Rx#:[id number] ceFAZolin 3 gm In Sodium 100 Chloride 0.9% 100 ml @ Per Protocol 200 mls/hr IVPB ONCE ONE Rx#: [id number] co/ci 30 pressure bags 72 36 6 Intake, IV Titration 391.302 39.719 9.629 Amount Amiodarone 450 mg In 309.728 Dextrose 5% in Water 250 ml @ 0.5 MG/MIN 16.667 mls/hr IV .Q15H PRN Rx#: [id number] Insulin Regular 100 unit 53.699 39.719 9.629 In Sodium Chloride 0.9% 100 ml @ Per Protocol IV .Q0M [facility] Rx#:[id number] Nitroglycerin-D5w Pmx 50 27.875 mg In Dextrose/Water 1 250ml.bag @ 5 MCG/MIN 1.5 mls/hr IV .Q24H [facility] Rx#: [id number] Oral 200 750 Output: Chest Tube Drainage [address] 5 Urine 485 825 850 Other: Voiding Method Indwelling Catheter Urinal Urinal # Voids 1 ABP, PAP, CO, CI - Last Documented Arterial Blood Pressure 116/61 Pulmonary Artery Pressure 22/15 Cardiac Output 6.3 Cardiac Index 2.5 - Labs CBC & Chem 7: 05/12/23 04:05 05/12/23 04:05 Labs: Abnormal Lab Results - Last 24 Hours (Table) 05/11/23 05/11/23 05/11/23 Range/Units 14:56 15:52 17:02 WBC (3.8-10.6) k/uL Neutrophils # (1.3-7.7) k/uL Sodium (137-145) mmol/L Carbon Dioxide (22-30) mmol/L Creatinine (0.66-1.25) mg/dL Glucose (74-99) mg/dL POC Glucose (mg/dL) 121 H 131 H 129 H (70-110) mg/dL Albumin (3.5-5.0) g/dL 05/11/23 05/11/23 05/11/23 Range/Units 18:16 18:57 20:07 WBC (3.8-10.6) k/uL Neutrophils # (1.3-7.7) k/uL Sodium (137-145) mmol/L Carbon Dioxide (22-30) mmol/L Creatinine (0.66-1.25) mg/dL Glucose (74-99) mg/dL POC Glucose (mg/dL) 121 H 120 H 127 H (70-110) mg/dL Albumin (3.5-5.0) g/dL 05/11/23 05/11/23 05/11/23 Range/Units 20:58 21:58 23:03 WBC (3.8-10.6) k/uL Neutrophils # (1.3-7.7) k/uL Sodium (137-145) mmol/L Carbon Dioxide (22-30) mmol/L Creatinine (0.66-1.25) mg/dL Glucose (74-99) mg/dL POC Glucose (mg/dL) 139 H 140 H 133 H (70-110) mg/dL Albumin (3.5-5.0) g/dL 05/12/23 05/12/23 05/12/23 Range/Units 00:03 01:03 02:02 WBC (3.8-10.6) k/uL Neutrophils # (1.3-7.7) k/uL Sodium (137-145) mmol/L Carbon Dioxide (22-30) mmol/L Creatinine (0.66-1.25) mg/dL Glucose (74-99) mg/dL POC Glucose (mg/dL) 124 H 129 H 118 H (70-110) mg/dL Albumin (3.5-5.0) g/dL 05/12/23 05/12/23 05/12/23 Range/Units 03:01 04:05 04:05 WBC 15.1 H (3.8-10.6) k/uL Neutrophils # 12.8 H (1.3-7.7) k/uL Sodium 131 L (137-145) mmol/L Carbon Dioxide 17 L (22-30) mmol/L Creatinine 1.35 H (0.66-1.25) mg/dL Glucose 125 H (74-99) mg/dL POC Glucose (mg/dL) 113 H (70-110) mg/dL Albumin 3.4 L (3.5-5.0) g/dL 05/12/23 05/12/23 05/12/23 Range/Units 04:08 05:05 05:55 WBC (3.8-10.6) k/uL Neutrophils # (1.3-7.7) k/uL Sodium (137-145) mmol/L Carbon Dioxide (22-30) mmol/L Creatinine (0.66-1.25) mg/dL Glucose (74-99) mg/dL POC Glucose (mg/dL) 124 H 123 H 138 H (70-110) mg/dL Albumin (3.5-5.0) g/dL 05/12/23 05/12/23 05/12/23 Range/Units 07:10 08:18 11:17 WBC (3.8-10.6) k/uL Neutrophils # (1.3-7.7) k/uL Sodium (137-145) mmol/L Carbon Dioxide (22-30) mmol/L Creatinine (0.66-1.25) mg/dL Glucose (74-99) mg/dL POC Glucose (mg/dL) 137 H 125 H 116 H (70-110) mg/dL Albumin (3.5-5.0) g/dL
[2023-05-12 16:04] LABS: Glucose,Whole Blood 120 mg/dL (70-110)
[2023-05-12 20:21] LABS: Glucose,Whole Blood 134 mg/dL (70-110)
[2023-05-12] MEDS: ATORVASTATIN 80 MG TAB PO SCH (20:35)
[2023-05-12] MEDS: METOPROLOL TARTRATE 50 MG TAB PO SCH (20:36)
[2023-05-12] MEDS: SENNOSIDES-DOCUSATE SODIUM 1 EACH TAB PO SCH (20:36)
[2023-05-13] MEDS: HYDROcodone/APAP 10-325MG 1 EACH TAB PO PRN (05:56)
[2023-05-13] MEDS: PANTOPRAZOLE 40 MG TABLET PO SCH (05:57)
[2023-05-13 06:50] LABS: HCT 43.9 % (39.0-53.0); MCH 29.9 pg (25.0-35.0); MCHC 31.9 g/dL (31.0-37.0); MCV 93.7 fL (80.0-100.0); Mean Platelet Volume 8.5; Platelet Count 225 k/uL (150-450); RBC 4.68 m/uL (4.30-5.90); RDW 12.3 % (11.5-15.5); WBC 13.9 k/uL (3.8-10.6)
[2023-05-13 06:53] LABS: Glucose,Whole Blood 131 mg/dL (70-110)
[2023-05-13 06:59] LABS: African American GFR (CKD) 68 (>60 ml/min/1.73 sqM); Anion Gap 12 mmol/L; Blood Urea Nitrogen 19 mg/dL (9-20); Calcium 9.3 mg/dL (8.4-10.2); Carbon Dioxide 19 mmol/L (22-30); Chloride 103 mmol/L (98-107); Glucose 126 mg/dL (74-99); Non-African American GFR(CKD) 59 (>60 ml/min/1.73 sqM); Sodium 134 mmol/L (137-145)
[2023-05-13] MEDS: INSULIN ASPART (NovoLOG) 100 UNIT/ML VIAL SQ SCH ×4 (07:12→20:16)
[2023-05-13] MEDS: IPRATROPIUM-ALBUTEROL 3 ML NEB INHALATION SCH ×4 (07:32→20:21)
--- NOTE | 2023-05-13 07:47 | P.PN ---
Subjective Progress Note Date: 05/13/23 Principal diagnosis: Coronary artery disease with previous STEMI and LAD stenting in October 2022, currently occluded LAD stent, unstable angina. Previous medical history of hypertension, hyperlipidemia, ischemic cardiomyopathy, type 2 diabetes, obesity, previous tobacco dependence POD #3 off-pump single coronary artery bypass grafting using this skeletonized left internal mammary artery to the mid left anterior descending artery, occlusion of the left atrial appendage using a 40 mm AtriClip, graft flow measurements using the [employer] system The patient was seen and examined this morning sitting up in a recliner in the intensive care unit in no acute distress. States pain is mostly controlled, denies shortness of breath. Remains in sinus rhythm, hemodynamically stable. Patient had low grad temp overnight, likely need more aggressive pulmonary toileting, WBC went down. Currently on room air with oxygen saturation in the mid 90s, able to achieve 7166-0468 mL on his incentive spirometry. Chest x-ray, lab work reviewed. Has been ambulatory out to the hallway. Transfer orders placed yesterday, no beds available. No other new concerns. Objective - Vital Signs Vital signs: Vital Signs Temp 99.2 F 05/13/23 04:00 Pulse 100 05/13/23 07:32 Resp 17 05/13/23 04:00 BP 134/79 05/13/23 04:00 Pulse Ox 96 05/13/23 04:00 FiO2 21 05/12/23 07:42 Intake & Output 05/12/23 05/13/23 05/13/23 18:59 06:59 18:59 Intake Total 105.629 540 Output Total 1200 525 Balance -1094.371 15 Weight 148.8 kg Intake: IV 96 Sodium Chloride 0.9% 1, 90 000 ml @ 20 mls/hr IV . Q24H [facility] Rx#:[id number] pressure bags 6 Intake, IV Titration 9.629 Amount Insulin Regular 100 unit 9.629 In Sodium Chloride 0.9% 100 ml @ Per Protocol IV .Q0M [facility] Rx#:[id number] Oral 540 Output: Urine 1200 525 Other: Voiding Method Urinal Urinal # Voids 1 ABP, PAP, CO, CI - Last Documented Arterial Blood Pressure 116/61 Pulmonary Artery Pressure 22/15 Cardiac Output 6.3 Cardiac Index 2.5 - Exam CONSTITUTIONAL: Appears comfortable, cooperative, no acute distress RESPIRATORY: Lungs sounds diminished bilaterally. Respirations even, nonlabored. Currently on room air with oxygen saturation 96%. Able to achieve 0575-1082 mL on incentive spirometry. Strong cough. CARDIOVASCULAR: S1, S2 present. Regular rate and rhythm, sinus rhythm on telemetry. Sternum stable. Palpable peripheral pulses bilaterally. Trace generalized edema present. No calf pain or tenderness noted. Heart hugger in place with patient demonstrating appropriate use. Antiembolism stockings, SCDs present. GASTROINTESTINAL: Abdomen soft, nontender, nondistended. Active bowel sounds present 4 quadrants. Tolerating diet. Positive flatus GENITOURINARY: Continues to void, output 1725 mL in the last 24 hours INTEGUMENTARY: Skin is warm and dry with evidence of good perfusion. Anterior chest incision well approximated and covered with dry intact dressing NEUROLOGIC: Cranial nerves II through XII intact MUSKULOSKELETAL: Able to move all extremities, strength equal bilaterally PSYCHIATRIC: Alert and oriented to person place and time, appropriate affect, intact judgment and insight - Allied health notes Allied health notes reviewed: nursing - Labs CBC & Chem 7: 05/13/23 06:17 05/13/23 06:17 Labs: Abnormal Lab Results - Last 24 Hours (Table) 05/12/23 05/12/23 05/12/23 Range/Units 08:18 11:17 16:02 WBC (3.8-10.6) k/uL Sodium (137-145) mmol/L Carbon Dioxide (22-30) mmol/L Creatinine (0.66-1.25) mg/dL Glucose (74-99) mg/dL POC Glucose (mg/dL) 125 H 116 H 120 H (70-110) mg/dL 05/12/23 05/13/23 05/13/23 Range/Units 20:20 06:17 06:17 WBC 13.9 H (3.8-10.6) k/uL Sodium 134 L (137-145) mmol/L Carbon Dioxide 19 L (22-30) mmol/L Creatinine 1.38 H (0.66-1.25) mg/dL Glucose 126 H (74-99) mg/dL POC Glucose (mg/dL) 134 H (70-110) mg/dL 05/13/23 Range/Units 06:51 WBC (3.8-10.6) k/uL Sodium (137-145) mmol/L Carbon Dioxide (22-30) mmol/L Creatinine (0.66-1.25) mg/dL Glucose (74-99) mg/dL POC Glucose (mg/dL) 131 H (70-110) mg/dL - Imaging and Cardiology Chest x-ray: image reviewed Assessment and Plan Assessment: Coronary artery disease with previous STEMI and LAD stenting in October 2022, currently occluded LAD stent, unstable angina, status post single-vessel CABG History of ischemic cardiomyopathy, EF 30-35% in October 2022, improvement in most recent echo with EF 50-55% History of hypertension Hyperlipidemia, treated, cholesterol 134, LDL 49, triglycerides 214 Type 2 diabetes, preoperative hemoglobin A1c 6.5% Obesity Previous tobacco dependence, preoperative FEV1 107% of predicted Plan: Continue to maximize medical therapy with aspirin, statin, Plavix, beta jono. Will increase beta jono therapy as tolerated, increased to 50 mg TID today Continue amiodarone for A. fib prophylaxis Encourage incentive spirometry use 10 times every hour while awake. Bronchodilators per pulmonology Increase activity, ambulate as tolerated. PT/OT/cardiac rehab consulted We'll monitor daily labs and x-rays. Electrolyte replacement per protocol. Will give IV lasix today GI/DVT prophylaxis Pain control with current medication regimen Insulin management per internal medicine. Patient is diabetic and needs tight blood culture control to prevent infection Continue to record strict accurate intake and output Daily weights Will give another dose of IV reglan as well as suppository today Transfer orders placed yesterday for [facility], may transfer when bed available Discharge planning in progress, anticipate discharge to home with home care in the next 24-48 hours More recommendations to follow
--- NOTE | 2023-05-13 08:19 | XR ---
EXAMINATION TYPE: XR chest 2V DATE OF EXAM: 05/13/2023 COMPARISON: 05/12/2023 HISTORY: post cardiac surgery TECHNIQUE: Frontal and lateral views of the chest are obtained. FINDINGS: Scattered senescent parenchymal changes noted. Persistent basilar atelectasis and/or infiltrates with small effusions. Postoperative changes of CABG . No sizable pneumothorax seen. Left basilar catheter appears to have been removed. Heart size is stable. Mediastinal structures are stable and grossly unremarkable. No evidence for hilar prominence. Degenerative changes dorsal spine. IMPRESSION: 1. Persistent basilar atelectasis and/or infiltrates with small effusions. Postoperative changes of C ABG. No sizable pneumothorax seen.
[2023-05-13] MEDS ORDERED: FUROSEMIDE 10 MG/ML 2 ML VIAL IV ONE (09:00)
[2023-05-13] MEDS: METOPROLOL TARTRATE 50 MG TAB PO SCH ×3 (09:00→23:28)
[2023-05-13] MEDS: AMIODARONE 200 MG TAB PO SCH ×2 (09:00→20:17)
[2023-05-13] MEDS: CLOPIDOGREL 75 MG TAB PO SCH (09:00)
[2023-05-13] MEDS: HEPARIN SODIUM,PORCINE 5,000 UNIT/ML 1 ML VIAL SQ SCH ×3 (09:00→23:28)
[2023-05-13] MEDS: ASPIRIN 325 MG TAB PO SCH (09:00)
[2023-05-13] MEDS: SIMETHICONE 40 MG/0.6 ML DROPS 2,000 MG/30 ML BOTTLE PO SCH ×4 (09:00→20:17)
[2023-05-13] MEDS: bisacodyL 10 MG SUPP RECTAL SCH (09:04)
[2023-05-13] MEDS ORDERED: METOCLOPRAMIDE 5 MG/ML 2 ML VIAL IVP STA (09:58)
[2023-05-13 11:18] LABS: Glucose,Whole Blood 165 mg/dL (70-110)
--- NOTE | 2023-05-13 11:40 | P.PN ---
Subjective Progress Note Date: 05/13/23 53-year-old male patient post bypass surgery. The patient underwent elective coronary artery bypass surgery with LUCERO to LAD. The patient is currently in the intensive care unit, intubated on a mechanical ventilator. The patient was seen in the ICU. The patient is currently on propofol running at 60 mcg/kg/m. The blood pressure is elevated and the patient is currently on chiropractic's at 8 mg an hour. Hemodynamic parameters included a cardiac output of 9.1 with an index of 3.5. PA pressures of 42/26. The patient is producing adequate amount of urine output. The patient has a left pleural and mediastinal chest tube, output has been 100 mL of bloody output from each chest tube. The chest x-ray showed adequate expansion of both lungs. ET tube and [place] catheter in good location. The patient is calm and comfortable and 6 is a mechanical ventilator. The blood gases were done on assist-control mode of 14, tidal volume of 600, FiO2 of 100% and a PEEP of 10 showed a pH of 7.29 with a pCO2 of 47 and pO2 of 307. FiO2 was dropped down to 50%. The patient is known to have CAD, previous cardiac arrest, diabetes mellitus type 2, systolic heart failure, hyperlipidemia and hypertension. Preoperative cardiac catheterization showed LAD disease that was totally occluded. The patient had also collaterals. No disease involving the circumflex or RCA. LV was mildly impaired. 05/11, the patient is being seen for a follow-up. The patient is currently postop day #1. Wean off the mechanical ventilator and the patient was extubated without any major difficulties. This morning, he is on room air oxygen. Sitting up on a chair. Using the incentive spirometer. Cardiac output is 0.1 with an index of 2.4. Pulmonary artery pressures of 23/17. Adequate urine output. Pulse ox 97% on room air oxygen. No focal neurological deficits. No respiratory difficulties. Is currently off thecleviprex drip. He is also on insulin drip at 4.5 units an hour. Cardiac rhythm is sinus. The chest x-ray from today showing adequate expansion of both lungs. No evidence of any pneu mothorax. The patient has a total and the left pleural and the mediastinal chest tube. Output from the chest tubes have been essentially minimal overnight. On his x-ray, he has a large gastric bubble. Atelectatic changes are seen in lung bases bilaterally. [place] catheter is in a good location. The blood work from today shows a hemoglobin of 14.7, white cell count of 15.6, sodium is at 133, potassium is at 5.2, BUN is at 24 with a creatinine of 1.49. LFTs are within normal limits. 05/12 2023, the patient is postop day #2. The patient remains on room air oxygen. The mediastinal chest tube was removed yesterday and a tortuous are to be removed today. Using incentive spirometer. Still on insulin drip and this will be transitioned to a sliding scale coverage. No other new complaints. No cardiac arrhythmias. The cardiac rhythm Is sinus. Surgical 1 site is dry and clean. No focal neurological deficits at this point in time. He is achieving approximately thousand on his incentive spirometer. Urine output is adequate. Blood work from today shows a white cell count of 15.1, hemoglobin 15.8, BMs at 60 with a creatinine of 1.3 which is stable. 05/13/2023, the patient is postop day #3. The patient is on room air oxygen. All of the chest is admitted removed. Chest x-ray shows some mild pulmonary vascular congestion. Gastric bubble is less distended. He is passing flatness and bowel movements. His tolerating his diet. No chest pain. Surgical 1 site is dry clean and intact. The patient is afebrile. The white cell count is at 13.9 with a hemoglobin of 14 and a platelet count of 225. Creatinine is stable at 1.38 with a BUN of 19 and a sodium level is at 134. Glucose at 126. No neurological deficits. Awake and alert and ambulating. Objective - Vital Signs Vital signs: Vital Signs Temp 99.2 F 05/13/23 04:00 Pulse 94 05/13/23 07:45 Resp 17 05/13/23 04:00 BP 134/79 05/13/23 04:00 Pulse Ox 96 05/13/23 04:00 FiO2 21 05/12/23 07:42 Intake & Output 05/12/23 05/13/23 05/13/23 18:59 06:59 18:59 Intake Total 105.629 540 Output Total 1200 525 Balance -1094.371 15 Weight 148.8 kg Intake: IV 96 Sodium Chloride 0.9% 1, 90 000 ml @ 20 mls/hr IV . Q24H [facility] Rx#:[id number] pressure bags 6 Intake, IV Titration 9.629 Amount Insulin Regular 100 unit 9.629 In Sodium Chloride 0.9% 100 ml @ Per Protocol IV .Q0M [facility] Rx#:[id number] Oral 540 Output: Urine 1200 525 Other: Voiding Method Urinal Urinal # Voids 1 ABP, PAP, CO, CI - Last Documented Arterial Blood Pressure 116/61 Pulmonary Artery Pressure 22/15 Cardiac Output 6.3 Cardiac Index 2.5 - Exam CONSTITUTIONAL: Appears comfortable, cooperative, no acute distress RESPIRATORY: Lungs sounds diminished bilaterally. Respirations even, nonlabored. Currently on room air with oxygen saturation 96%. Able to achieve 6388-1380 mL on incentive spirometry. Strong cough. CARDIOVASCULAR: S1, S2 present. Regular rate and rhythm, sinus rhythm on telemetry. Sternum stable. Palpable peripheral pulses bilaterally. Trace generalized edema present. No calf pain or tenderness noted. Heart hugger in place with patient demonstrating appropriate use. Antiembolism stockings, SCDs present. GASTROINTESTINAL: Abdomen soft, nontender, nondistended. Active bowel sounds present 4 quadrants. Tolerating diet. Positive flatus GENITOURINARY: Continues to void, output 1725 mL in the last 24 hours INTEGUMENTARY: Skin is warm and dry with evidence of good perfusion. Anterior chest incision well approximated and covered with dry intact dressing NEUROLOGIC: Cranial nerves II through XII intact MUSKULOSKELETAL: Able to move all extremities, strength equal bilaterally PSYCHIATRIC: Alert and oriented to person place and time, appropriate affect, intact judgment and insight - Labs CBC & Chem 7: 05/13/23 06:17 05/13/23 06:17 Labs: Abnormal Lab Results - Last 24 Hours (Table) 05/12/23 05/12/23 05/12/23 Range/Units 11:17 16:02 20:20 WBC (3.8-10.6) k/uL Sodium (137-145) mmol/L Carbon Dioxide (22-30) mmol/L Creatinine (0.66-1.25) mg/dL Glucose (74-99) mg/dL POC Glucose (mg/dL) 116 H 120 H 134 H (70-110) mg/dL 05/13/23 05/13/23 05/13/23 Range/Units 06:17 06:17 06:51 WBC 13.9 H (3.8-10.6) k/uL Sodium 134 L (137-145) mmol/L Carbon Dioxide 19 L (22-30) mmol/L Creatinine 1.38 H (0.66-1.25) mg/dL Glucose 126 H (74-99) mg/dL POC Glucose (mg/dL) 131 H (70-110) mg/dL Assessment and Plan Plan: Coronary artery bypass surgery/LUCERO to LAD, patient is postop day #3. The patient is hemodynamically stable, extubated. Hemodynamically parameters are adequate. Chest x-ray was noted. Patient is currently on room air oxygen. All of the chest was admitted removed Postthoracotomy, currently on room air oxygen. Surgical one-sided dry clean and intact. Coronary artery disease [place] artery, status post PCI left anterior descending coronary artery in February 2023 History of ischemic cardiomyopathy, most recent transthoracic 2-D echocardiogram ejection fraction of 50-55% Hypertension, currently off the cleviprex infusion for blood pressure control History of cardiac arrest with ACLS and return of spontaneous circulation in October 2022 Hyperlipidemia Diabetes mellitus type 2 currently on insulin drip for blood sugar control Remote history of nicotine dependence, quit smoking in October 2022 Obesity with a BMI of 44.1 kg/m Acute kidney injury, creatinine is stable and the patient's urine output is adequate. His nonoliguric at this point in time. Plan She is currently on room air oxygen, rest or status is stable and he is using the incentive spirometer. Chest x-ray shows no evidence of any pneumothorax All of the chest is admitted removed Continue aspirin and Plavix Continue amiodarone for A. fib prophylaxis The patient is also on beta blockers and he'll be placed on metoprolol 50 mg by mouth 3 times a day IV fluids are currently of KVO. Is on [place] for pain control. We'll continue to follow.
[2023-05-13] MEDS: HYDROcodone/APAP 5-325MG 1 EACH TAB PO PRN (12:43)
--- NOTE | 2023-05-13 15:47 | P.PN ---
Progress Note - Text Progress Note Date: 05/13/23 - History of Present Illness Patient is a 53-year-old male with history of CAD status post stent, recent cardiac arrest, type 2 diabetes, hypertension, systolic heart failure, dyslipidemia presenting for elective CABG. [facility] physicians has been consulted for medical management. Patient is currently in medical ICU. Intubated and sedated. May 11: I assumed care of the patient today. ICU. Sitting up in a recliner. Abdominal discomfort from a large gastric bubble. Try some aerated soda. simethicon drops.. Patient on clear liquids.. Sinus rhythm. 2 L nasal cannula. Patient taken off insulin drip this morning. Moran catheter in place. [address] May 12: Sitting up in a chair. Chest tubes have been pulled out. On room air. Did walk about 10:15 steps. Moran has been taken out. Eating better. Breathing stable. May 13: Doing better. Eating better. Did walk in the hallway. On room air. Breathing stable. Active Medications Acetaminophen (Acetaminophen Tab 325 Mg Tab) 650 mg PO Q4HR PRN PRN Reason: Fever and/ or Pain Last Admin: 05/12/23 22:23 Dose: 650 mg Hydrocodone Bitart/Acetaminophen (Hydrocodone/Apap 5-325mg 1 Each Tab) 1 each PO Q6HR PRN PRN Reason: Pain Last Admin: 05/13/23 12:43 Dose: 1 each Albuterol/Ipratropium (Ipratropium-Albuterol 3 Ml Neb) 3 ml INHALATION RT-Q2H PRN PRN Reason: Shortness Of Breath Or Wheezing Albuterol/Ipratropium (Ipratropium-Albuterol 3 Ml Neb) 3 ml INHALATION RT-QID [facility] Last Admin: 05/13/23 15:20 Dose: 3 ml Amiodarone HCl (Amiodarone 200 Mg Tab) 400 mg PO BID [facility] Last Admin: 05/13/23 09:00 Dose: 400 mg Aspirin (Aspirin 325 Mg Tab) 325 mg PO DAILY [facility] Last Admin: 05/13/23 09:00 Dose: 325 mg Atorvastatin Calcium (Atorvastatin 80 Mg Tab) 80 mg PO HS [facility] Last Admin: 05/12/23 20:35 Dose: 80 mg Benzocaine/Menthol (Benzocaine/Menthol Lozeng 1 Each Lozenge) 1 each MUCOUS MEM Q2H PRN PRN Reason: Sore Throat Bisacodyl (Bisacodyl 10 Mg Supp) 10 mg RECTAL DAILY [facility] Last Admin: 05/13/23 09:04 Dose: Not Given Clopidogrel Bisulfate (Clopidogrel 75 Mg Tab) 75 mg PO DAILY [facility] Last Admin: 05/13/23 09:00 Dose: 75 mg Dextrose/Water (Dextrose 50% Syringe 50 Ml) 25 ml IVP PER PROTOCOL PRN; Protocol PRN Reason: Hypoglycemia Dextrose/Water (Dextrose 50% Syringe 50 Ml) 50 ml IVP PER PROTOCOL PRN; Protocol PRN Reason: Hypoglycemia Heparin Sodium (Porcine) (Heparin Sodium,Porcine 5,000 Unit/Ml 1 Ml Vial) 5,000 unit SQ Q8HR [facility] Last Admin: 05/13/23 09:00 Dose: 5,000 unit Amiodarone HCl 150 mg/ (Dextrose/Water) 103 mls @ 618 mls/hr IV .Q10M PRN; Protocol PRN Reason: A.FIB/FLUTTER Insulin Aspart (Insulin Aspart (Novolog) 100 Unit/Ml Vial) 0 unit SQ ACHS [facility]; Protocol Last Admin: 05/13/23 11:46 Dose: 2 unit Magnesium Hydroxide (Magnesium Hydroxide 2,400 Mg/30 Ml Cup) 2,400 mg PO BID PRN PRN Reason: Constipation Metoprolol Tartrate (Metoprolol Tartrate 50 Mg Tab) 50 mg PO Q8HR [facility] Miscellaneous Information (Magnesium Replacement Protocol 1 Each Misc) 1 each MISCELLANE DAILY PRN; Protocol PRN Reason: Per Protocol Miscellaneous Information (Potassium Replacement Protocol 1 Each Misc) 1 each MISCELLANE DAILY PRN; Protocol PRN Reason: Per Protocol Ondansetron HCl (Ondansetron 4 Mg/2 Ml Vial) 4 mg IVP Q6HR PRN PRN Reason: Nausea And Vomiting Pantoprazole Sodium (Pantoprazole 40 Mg Tablet) 40 mg PO AC-BRKFST [facility] Last Admin: 05/13/23 05:57 Dose: 40 mg Senna/Docusate Sodium (Sennosides-Docusate Sodium 1 Each Tab) 2 each PO HS [facility] Last Admin: 05/12/23 20:36 Dose: 2 each Simethicone (Simethicone 40 Mg/0.6 Ml Drops 2,000 Mg/30 Ml Bottle) 40 mg PO QID [facility] Last Admin: 05/13/23 13:58 Dose: 40 mg Sodium Chloride (Sodium Chloride 0.9% Flush 10 Ml Syringe) 10 ml IV BID [facility] Last Admin: 05/13/23 10:50 Dose: 10 ml On examination: VITAL SIGNS: 99.6, 99, 16, 100 MLS/65, 90 GENERAL APPEARANCE: Sitting up in a recliner. Comfortable HEENT: Normal external appearance of nose and ear. Oral cavity normal EYES: Pupils equal. Conjunctiva normal. NECK: JVD not raised. Mass not palpable. RESPIRATORY: Respiratory effort increased. Decreased breath sounds CARDIOVASCULAR: First and second sounds normal. No edema. ABDOMEN: Soft. Liver and spleen not palpable. No tenderness. No mass palpable. PSYCHIATRY: Alert and oriented x3. Mood and affect normal INVESTIGATIONS, reviewed in the clinical context: May 13: White count 3.9 hemoglobin 14 potassium 5 creatinine 1.38 May 12: White count 15.1 hemoglobin 13.8 platelets 200 sodium 131 potassium 4.7 BUN 16 creatinine 1.35 May 11: White count 15.6 hemoglobin 14.7 platelets 260 sodium 133 potassium 5.2 BUN 22 creatinine 1.49 Previous labs: Creatinine 1.11 on 11/11/2022. Assessment and plan: - CABG on May 10. By Dr. Luis. Chest tubes discontinued -CAD, with previous cardiac arrest Aspirin. Lipitor. Plavix. Lopressor. -Type 2 diabetes, on oral hypoglycemic Follow Accu-Cheks. Diet advanced -Essential Hypertension Lopressor -Chronic congestive heart failure from systolic dysfunction EF 30 to-35% from underlying ischemic heart disease Lopressor 25 mg twice a day. -Dyslipidemia Lipitor -Leukocytosis, reactive, expected outcome of surgery -Chronic kidney disease stage 3. Likely nephrosclerosis. Follow renal function closely -Large gastric bubble is seen on chest x-ray, Causing significant abdominal discomfort.: Improved -Morbid obesity BMI 44.6 Weight loss measures -Full code Stable. Activity as tolerated. Discussed. Thank you Past Medical History Past Medical History: Coronary Artery Disease (CAD), Chest Pain / Angina, Diabetes Mellitus, Hyperlipidemia, Hypertension, Myocardial Infarction (MD) Additional Past Medical History / Comment(s): CAME IN VIA EMS IN CARDIAC ARREST- WENT INTO V-FIB AND WAS INTUBATED 11/06/22 Last Myocardial Infarction Date:: 11/06/22 History of Any Multi-Drug Resistant Organisms: None Reported Past Surgical History: Heart Catheterization With Stent, Orthopedic Surgery Additional Past Surgical History / Comment(s): RT LITTLE FINGER REATTACHED Past Anesthesia/Blood Transfusion Reactions: No Reported Reaction Date of Last Stent Placement:: 11/06/22 Smoking Status: Former smoker - Past Family History Mother Family Medical History: Myocardial Infarction (MD) Medications and Allergies Home Medications Medication Instructions Recorded Confirmed Type Aspirin [Adult Low Dose Aspirin EC] 81 mg PO DAILY #30 tab 11/11/22 05/10/23 Rx Atorvastatin [Lipitor] 80 mg PO HS #30 tab 11/11/22 05/10/23 Rx Nitroglycerin Sl Tabs [Nitrostat] 0.4 mg SUBLINGUAL Q5M PRN #30 tab 11/11/22 05/06/23 Rx Spironolactone [Aldactone] 25 mg PO DAILY #30 tab 11/11/22 05/10/23 Rx lisinopriL [Zestril] 10 mg PO HS #30 tab 11/11/22 05/10/23 Rx Dapagliflozin Propanediol [Farxiga] 10 mg PO DAILY 04/26/23 05/10/23 History Metoprolol Tartrate [Lopressor] 25 mg PO QAM 05/06/23 05/10/23 History Allergies Allergy/AdvReac Type Severity Reaction Status Date / Time stainless steel Allergy Rash/Hives Uncoded 05/06/23 11:54
[2023-05-13 16:24] LABS: Glucose,Whole Blood 158 mg/dL (70-110)
[2023-05-13 20:10] LABS: Glucose,Whole Blood 141 mg/dL (70-110)
[2023-05-13] MEDS: SENNOSIDES-DOCUSATE SODIUM 1 EACH TAB PO SCH (20:16)
[2023-05-13] MEDS: ATORVASTATIN 80 MG TAB PO SCH (20:17)
[2023-05-14] MEDS: HYDROcodone/APAP 5-325MG 1 EACH TAB PO PRN (01:45)
[2023-05-14] MEDS: ACETAMINOPHEN TAB 325 MG TAB PO PRN ×2 (03:19→10:15)
[2023-05-14 05:55] LABS: Glucose,Whole Blood 133 mg/dL (70-110)
[2023-05-14] MEDS: INSULIN ASPART (NovoLOG) 100 UNIT/ML VIAL SQ SCH (05:59)
[2023-05-14] MEDS: PANTOPRAZOLE 40 MG TABLET PO SCH (06:06)
--- NOTE | 2023-05-14 08:18 | P.PN ---
Subjective Progress Note Date: 05/14/23 Principal diagnosis: Coronary artery disease with previous STEMI and LAD stenting in October 2022, currently occluded LAD stent, unstable angina. Previous medical history of hypertension, hyperlipidemia, ischemic cardiomyopathy, type 2 diabetes, obesity, previous tobacco dependence POD #4 off-pump single coronary artery bypass grafting using this skeletonized left internal mammary artery to the mid left anterior descending artery, occlusion of the left atrial appendage using a 40 mm AtriClip, graft flow measurements using the Sinnetstim system The patient was seen and examined this morning sitting up in a recliner on the cardiac stepdown unit in no acute distress. States pain is mostly controlled, denies shortness of breath. Remains in sinus rhythm, hemodynamically stable. Patient had low grad temp overnight, likely need more aggressive pulmonary toileting. Currently on room air with oxygen saturation in the mid 90s, able to achieve 1500 mL on his incentive spirometry. Chest x-ray reviewed, labs pending. Was ambulatory in the hallway yesterday. Showered yesterday. No other new concerns. Objective - Vital Signs Vital signs: Vital Signs Temp 99.2 F 05/14/23 04:33 Pulse 88 05/14/23 03:00 Resp 20 05/14/23 03:00 BP 125/81 05/14/23 03:00 Pulse Ox 93 L 05/14/23 03:00 FiO2 21 05/12/23 07:42 Intake & Output 05/13/23 05/14/23 05/14/23 18:59 06:59 18:59 Intake Total 1000 Output Total 1200 Balance 1000 -1200 Weight 148.4 kg Intake: Oral 1000 Output: Urine 1200 Other: Voiding Method Urinal Urinal # Voids 1 1 # Bowel Movements 1 ABP, PAP, CO, CI - Last Documented Arterial Blood Pressure 116/61 Pulmonary Artery Pressure 22/15 Cardiac Output 6.3 Cardiac Index 2.5 - Exam CONSTITUTIONAL: Appears comfortable, cooperative, no acute distress RESPIRATORY: Lungs sounds diminished bilaterally. Respirations even, nonlabored. Currently on room air with oxygen saturation 93%. Able to achieve 1500 mL on incentive spirometry. Strong cough. CARDIOVASCULAR: S1, S2 present. Regular rate and rhythm, sinus rhythm on telemetry. Sternum stable. Palpable peripheral pulses bilaterally. Trace generalized edema present. No calf pain or tenderness noted. Heart hugger in place with patient demonstrating appropriate use. Antiembolism stockings, SCDs present. GASTROINTESTINAL: Abdomen soft, nontender, nondistended. Active bowel sounds present 4 quadrants. Tolerating diet. Positive bowel movement 05/13/23 GENITOURINARY: Continues to void, output 1200 mL in the last 24 hours INTEGUMENTARY: Skin is warm and dry with evidence of good perfusion. Anterior chest incision well approximated NEUROLOGIC: Cranial nerves II through XII intact MUSKULOSKELETAL: Able to move all extremities, strength equal bilaterally PSYCHIATRIC: Alert and oriented to person place and time, appropriate affect, intact judgment and insight - Allied health notes Allied health notes reviewed: nursing - Labs CBC & Chem 7: 05/14/23 08:17 05/14/23 08:17 Labs: Abnormal Lab Results - Last 24 Hours (Table) 05/13/23 05/13/23 05/13/23 Range/Units 11:17 16:22 20:09 POC Glucose (mg/dL) 165 H 158 H 141 H (70-110) mg/dL 05/14/23 Range/Units 05:53 POC Glucose (mg/dL) 133 H (70-110) mg/dL - Imaging and Cardiology Chest x-ray: image reviewed Assessment and Plan Assessment: Coronary artery disease with previous STEMI and LAD stenting in October 2022, currently occluded LAD stent, unstable angina, status post single-vessel CABG History of ischemic cardiomyopathy, EF 30-35% in October 2022, improvement in most recent echo with EF 50-55% History of hypertension Hyperlipidemia, treated, cholesterol 134, LDL 49, triglycerides 214 Type 2 diabetes, preoperative hemoglobin A1c 6.5% Obesity Previous tobacco dependence, preoperative FEV1 107% of predicted Plan: Continue to maximize medical therapy with aspirin, statin, Plavix, beta jono. Will add HEATHER for afterload reduction Continue amiodarone for A. fib prophylaxis, will taper dose per protocol Encourage incentive spirometry use 10 times every hour while awake. Bronchodilators per pulmonology Increase activity, ambulate as tolerated. PT/OT/cardiac rehab consulted Will monitor daily labs and x-rays. Electrolyte replacement per protocol GI/DVT prophylaxis Pain control with current medication regimen Insulin management per internal medicine. Patient is diabetic and needs tight blood culture control to prevent infection Continue to record strict accurate intake and output Daily weightsvs tomorrow morning More recommendations to follow
--- NOTE | 2023-05-14 08:20 | XR ---
EXAMINATION TYPE: XR chest 2V DATE OF EXAM: 05/14/2023 COMPARISON: 05/13/2023 HISTORY: Shortness of breath TECHNIQUE: Frontal and lateral views of the chest are obtained. FINDINGS: Scattered senescent parenchymal changes noted. Patchy and strandy basilar opacities with diminished lung volumes may reflect underlying atelectasis and/or pneumonia. Small right-sided pleural effusion. Heart size is stable. Mediastinal structures are stable and grossly unremarkable. No evidence for hilar prominence. Degenerative changes dorsal spine. IMPRESSION: 1. Patchy and strandy basilar opacities with diminished lung volumes may reflect underlying atelectas is and/or pneumonia. Small right-sided pleural effusion.
[2023-05-14 08:44] LABS: HCT 35.7 % (39.0-53.0); HGB 11.6 gm/dL (13.0-17.5); MCH 30.4 pg (25.0-35.0); MCHC 32.6 g/dL (31.0-37.0); MCV 93.2 fL (80.0-100.0); Mean Platelet Volume 7.6; Platelet Count 242 k/uL (150-450); RBC 3.83 m/uL (4.30-5.90); RDW 12.1 % (11.5-15.5); WBC 13.4 k/uL (3.8-10.6)
[2023-05-14 08:56] LABS: African American GFR (CKD) 67 (>60 ml/min/1.73 sqM); Anion Gap 9 mmol/L; Blood Urea Nitrogen 23 mg/dL (9-20); Calcium 8.5 mg/dL (8.4-10.2); Carbon Dioxide 22 mmol/L (22-30); Chloride 101 mmol/L (98-107); Glucose 148 mg/dL (74-99); Non-African American GFR(CKD) 58 (>60 ml/min/1.73 sqM); Potassium 4.6 mmol/L (3.5-5.1); Sodium 132 mmol/L (137-145)
[2023-05-14] MEDS: IPRATROPIUM-ALBUTEROL 3 ML NEB INHALATION SCH (09:10)
[2023-05-14] MEDS: HEPARIN SODIUM,PORCINE 5,000 UNIT/ML 1 ML VIAL SQ SCH (10:14)
[2023-05-14] MEDS: METOPROLOL TARTRATE 50 MG TAB PO SCH (10:15)
[2023-05-14] MEDS: AMIODARONE 200 MG TAB PO SCH (10:15)
[2023-05-14] MEDS: CLOPIDOGREL 75 MG TAB PO SCH (10:15)
[2023-05-14] MEDS: ASPIRIN 325 MG TAB PO SCH (10:15)
[2023-05-14] MEDS: SIMETHICONE 40 MG/0.6 ML DROPS 2,000 MG/30 ML BOTTLE PO SCH ×2 (10:16→12:37)
[2023-05-14] MEDS ORDERED: lisinopriL 10 MG TAB PO STA (10:34)
[2023-05-14] MEDS: bisacodyL 10 MG SUPP RECTAL SCH (10:44)
[2023-05-14] MEDS ORDERED: DAPAGLIFLOZIN PROPANEDIOL 10 MG TABLET PO SCH (10:45)
[2023-05-14 11:38] VITALS: BP 103/61; PULSE 82; RESP 16; TEMP 99.7
[2023-05-14 11:45] LABS: Glucose,Whole Blood 130 mg/dL (70-110)
--- NOTE | 2023-05-14 11:54 | P.PN ---
Subjective Progress Note Date: 05/14/23 53-year-old male patient post bypass surgery. The patient underwent elective coronary artery bypass surgery with LUCERO to LAD. The patient is currently in the intensive care unit, intubated on a mechanical ventilator. The patient was seen in the ICU. The patient is currently on propofol running at 60 mcg/kg/m. The blood pressure is elevated and the patient is currently on chiropractic's at 8 mg an hour. Hemodynamic parameters included a cardiac output of 9.1 with an index of 3.5. PA pressures of 42/26. The patient is producing adequate amount of urine output. The patient has a left pleural and mediastinal chest tube, output has been 100 mL of bloody output from each chest tube. The chest x-ray showed adequate expansion of both lungs. ET tube and [place] catheter in good location. The patient is calm and comfortable and 6 is a mechanical ventilator. The blood gases were done on assist-control mode of 14, tidal volume of 600, FiO2 of 100% and a PEEP of 10 showed a pH of 7.29 with a pCO2 of 47 and pO2 of 307. FiO2 was dropped down to 50%. The patient is known to have CAD, previous cardiac arrest, diabetes mellitus type 2, systolic heart failure, hyperlipidemia and hypertension. Preoperative cardiac catheterization showed LAD disease that was totally occluded. The patient had also collaterals. No disease involving the circumflex or RCA. LV was mildly impaired. 05/11, the patient is being seen for a follow-up. The patient is currently postop day #1. Wean off the mechanical ventilator and the patient was extubated without any major difficulties. This morning, he is on room air oxygen. Sitting up on a chair. Using the incentive spirometer. Cardiac output is 0.1 with an index of 2.4. Pulmonary artery pressures of 23/17. Adequate urine output. Pulse ox 97% on room air oxygen. No focal neurological deficits. No respiratory difficulties. Is currently off thecleviprex drip. He is also on insulin drip at 4.5 units an hour. Cardiac rhythm is sinus. The chest x-ray from today showing adequate expansion of both lungs. No evidence of any pneu mothorax. The patient has a total and the left pleural and the mediastinal chest tube. Output from the chest tubes have been essentially minimal overnight. On his x-ray, he has a large gastric bubble. Atelectatic changes are seen in lung bases bilaterally. [place] catheter is in a good location. The blood work from today shows a hemoglobin of 14.7, white cell count of 15.6, sodium is at 133, potassium is at 5.2, BUN is at 24 with a creatinine of 1.49. LFTs are within normal limits. 05/12 2023, the patient is postop day #2. The patient remains on room air oxygen. The mediastinal chest tube was removed yesterday and a tortuous are to be removed today. Using incentive spirometer. Still on insulin drip and this will be transitioned to a sliding scale coverage. No other new complaints. No cardiac arrhythmias. The cardiac rhythm Is sinus. Surgical 1 site is dry and clean. No focal neurological deficits at this point in time. He is achieving approximately thousand on his incentive spirometer. Urine output is adequate. Blood work from today shows a white cell count of 15.1, hemoglobin 15.8, BMs at 60 with a creatinine of 1.3 which is stable. 05/13/2023, the patient is postop day #3. The patient is on room air oxygen. All of the chest is admitted removed. Chest x-ray shows some mild pulmonary vascular congestion. Gastric bubble is less distended. He is passing flatness and bowel movements. His tolerating his diet. No chest pain. Surgical 1 site is dry clean and intact. The patient is afebrile. The white cell count is at 13.9 with a hemoglobin of 14 and a platelet count of 225. Creatinine is stable at 1.38 with a BUN of 19 and a sodium level is at 134. Glucose at 126. No neurological deficits. Awake and alert and ambulating. On 05/14/2023, the patient's postop day #4. The patient was transferred out of the intensive care unit yesterday and the patient is doing well. No respiratory difficulties. He is on room air oxygen. Chest x-ray showed atelectatic changes bilaterally. Cardiac rhythm is sinus. He is ambulating. Surgical wound is clean. Using incentive spirometer. The BUN is at 23 with a creatinine of 1.4 and a hemoglobin is 11.6 with a white cell count of 13.4 Objective - Vital Signs Vital signs: Vital Signs Temp 99.2 F 05/14/23 04:33 Pulse 88 05/14/23 03:00 Resp 20 05/14/23 03:00 BP 125/81 05/14/23 03:00 Pulse Ox 93 L 05/14/23 03:00 FiO2 21 05/12/23 07:42 Intake & Output 05/13/23 05/14/23 05/14/23 18:59 06:59 18:59 Intake Total 1000 180 Output Total 1200 Balance 1000 -1200 180 Weight 148.4 kg Intake: Oral 1000 180 Output: Urine 1200 Other: Voiding Method Urinal Urinal # Voids 1 1 # Bowel Movements 1 ABP, PAP, CO, CI - Last Documented Arterial Blood Pressure 116/61 Pulmonary Artery Pressure 22/15 Cardiac Output 6.3 Cardiac Index 2.5 - Exam CONSTITUTIONAL: Appears comfortable, cooperative, no acute distress RESPIRATORY: Lungs sounds diminished bilaterally. Respirations even, nonlabored. Currently on room air with oxygen saturation 96%. Able to achieve 4858-8842 mL on incentive spirometry. Strong cough. CARDIOVASCULAR: S1, S2 present. Regular rate and rhythm, sinus rhythm on t elemetry. Sternum stable. Palpable peripheral pulses bilaterally. Trace generalized edema present. No calf pain or tenderness noted. Heart hugger in place with patient demonstrating appropriate use. Antiembolism stockings, SCDs present. GASTROINTESTINAL: Abdomen soft, nontender, nondistended. Active bowel sounds present 4 quadrants. Tolerating diet. Positive flatus GENITOURINARY: Continues to void, output 1725 mL in the last 24 hours INTEGUMENTARY: Skin is warm and dry with evidence of good perfusion. Anterior chest incision well approximated and covered with dry intact dressing NEUROLOGIC: Cranial nerves II through XII intact MUSKULOSKELETAL: Able to move all extremities, strength equal bilaterally PSYCHIATRIC: Alert and oriented to person place and time, appropriate affect, intact judgment and insight - Labs CBC & Chem 7: 05/14/23 08:17 05/14/23 08:17 Labs: Abnormal Lab Results - Last 24 Hours (Table) 05/13/23 05/13/23 05/13/23 Range/Units 11:17 16:22 20:09 WBC (3.8-10.6) k/uL RBC (4.30-5.90) m/uL Hgb (13.0-17.5) gm/dL Hct (39.0-53.0) % Sodium (137-145) mmol/L BUN (9-20) mg/dL Creatinine (0.66-1.25) mg/dL Glucose (74-99) mg/dL POC Glucose (mg/dL) 165 H 158 H 141 H (70-110) mg/dL 05/14/23 05/14/23 05/14/23 Range/Units 05:53 08:17 08:17 WBC 13.4 H (3.8-10.6) k/uL RBC 3.83 L (4.30-5.90) m/uL Hgb 11.6 L (13.0-17.5) gm/dL Hct 35.7 L (39.0-53.0) % Sodium 132 L (137-145) mmol/L BUN 23 H (9-20) mg/dL Creatinine 1.40 H (0.66-1.25) mg/dL Glucose 148 H (74-99) mg/dL POC Glucose (mg/dL) 133 H (70-110) mg/dL Assessment and Plan Plan: Coronary artery bypass surgery/LUCERO to LAD, patient is postop day #4. The patient is hemodynamically stable, extubated. Hemodynamically parameters are adequate. Chest x-ray was noted. Patient is currently on room air oxygen. All of the chest was admitted removed Postthoracotomy, currently on room air oxygen. Surgical one-sided dry clean and intact. Coronary artery disease [place] artery, status post PCI left anterior descending coronary artery in February 2023 History of ischemic cardiomyopathy, most recent transthoracic 2-D echocardiogram ejection fraction of 50-55% Hypertension, currently off the cleviprex infusion for blood pressure control History of cardiac arrest with ACLS and return of spontaneous circulation in October 2022 Hyperlipidemia Diabetes mellitus type 2 currently on insulin drip for blood sugar control Remote history of nicotine dependence, quit smoking in October 2022 Obesity with a BMI of 44.1 kg/m Acute kidney injury, creatinine is stable and the patient's urine output is adequate. His nonoliguric at this point in time. Plan She is currently on room air oxygen, rest or status is stable and he is using the incentive spirometer. Chest x-ray shows no evidence of any pneumothorax, there is bilateral atelectatic changes and the patient is to concentrate on using the [employer] spirometer more aggressively. Continue aspirin and Plavix Continue amiodarone for A. fib prophylaxis The patient is also on beta blockers and he'll be placed on metoprolol 50 mg by mouth 3 times a day IV fluids are currently of KVO. Is on [place] for pain control. We'll continue to follow. Patient is currently on a medical floor.
--- NOTE | 2023-05-14 11:55 | P.DS ---
Providers Date of admission: 05/10/23 05:38 Expected date of discharge: 05/14/23 Attending physician: Del Lanza Consults: 05/10/23 12:23 Consult Physician Routine Consulting Provider: Memo Medina Consult Reason/Comments: Volcanology Teacher Consult: post cardiac surgery Do you want consulting provider notified?: Yes Placement Type Exists?: Yes Consult Physician Routine Consulting Provider: Didier Lewis Consult Reason/Comments: Community Support Professional Consult: post cardiac surgery Do you want consulting provider notified?: Yes Placement Type Exists?: Yes 05/11/23 07:07 Consult Physician Routine Consulting Provider: Jonathan Esquivel Consult Reason/Comments: med mgmt;[place] patient Do you want consulting provider notified?: Already Contacted Primary care physician: Matt Feng Hospital Course: FINAL DIAGNOSIS: 1. Coronary artery disease with previous STEMI and LAD stenting in October 2022, currently occluded LAD stent, unstable angina 2. Cardiac arrest in October 2022 3. History of ischemic cardiomyopathy, EF 30-35% in October 2022, improvement on most recent echo with EF 50-55% currently 4. History of hypertension 5. Hyperlipidemia, treated, cholesterol 134, LDL 49, triglycerides 214 6. Type 2 diabetes, preoperative hemoglobin A1c is 6.5% 7. Obesity 8. Previous tobacco dependence, preoperative FEV1 107% of predicted PRINCIPAL PROCEDURE: 1. Off pump single coronary artery bypass grafting using skeletonized left internal mammary artery to the mid left anterior descending artery 2. Occlusion of the left atrial appendage using a 40 mm AtriClip 3. Graft flow measurements using the Medist[employer] system HISTORY OF PRESENT ILLNESS: This is a 53-year-old gentleman who follows up patient with [facility] Arteaga for primary care and Dr. Anaya for cardiology. This gentleman had a cardiac arrest with myocardial infarction and subsequent stent placement to the LAD in October 2022. Since his stent placement he has been compliant with maximized medical therapy, however he continued to have complaints of angina with physical activity. He had a Lexiscan stress test in March suggestive of stress-induced ischemia in the LAD territory. He was recommended to undergo repeat heart catheterization which demonstrated total occlusion of the ostium of the LAD with ipsilateral collaterals. The patient was referred to Dr. Lanza from cardiothoracic surgery. He was recommended to undergo off-pump surgical revascularization with the left internal mammary artery to the left anterior descending artery. The usual perioperative course was discussed in detail with the patient and his family, all risks and benefits were explained, all questions were answered, and consent was obtained to proceed with surgery. The patient was scheduled for elective surgery at the earliest possible date. HOSPITAL COURSE: The patient was brought to the hospital on 05/10/23, taken to the preoperative area, prepared in the usual fashion, and subsequently taken to the operating room where Dr. Lanza performed single vessel off-pump CABG. Upon completion of surgery the patient was transferred to the cardiovascular intensive care unit where he was recovered and monitored hemodynamically. He was extubated, all lines, tubes, and drips were discontinued when appropriate, and he was transferred to 3 S cardiac stepdown unit for further monitoring and rehabilitation. His oxygen was titrated down, he continued to work with physical and occupational therapy, he was tolerating oral diet, his pain was controlled, and he was ready to be discharged to home with [facility] on postoperative day #6. He received written and verbal instruction regarding his medications, activity restrictions, signs and symptoms requiring physician notification, and follow-up appointments. Patient Condition at Discharge: Stable Plan - Discharge Summary Discharge Rx Participant: Yes New Discharge Prescriptions: New Metoprolol Tartrate [Lopressor] 50 mg PO Q8HR #90 tab Clopidogrel [Plavix] 75 mg PO DAILY #30 tab Amiodarone [Cordarone] 400 mg PO BID #36 tab Pantoprazole [Protonix] 40 mg PO AC-BRKFST #30 tab Sennosides-Docusate Sodium [Senokot-S] 2 each PO HS PRN tab PRN Reason: Constipation Acetaminophen Tab [Tylenol] 650 mg PO Q4HR PRN tab PRN Reason: Fever And/ Or Pain Continue Aspirin [Adult Low Dose Aspirin EC] 81 mg PO DAILY #30 tab Dapagliflozin Propanediol [Farxiga] 10 mg PO DAILY lisinopriL [Zestril] 10 mg PO HS #30 tab Atorvastatin [Lipitor] 80 mg PO HS #30 tab Discontinued Spironolactone [Aldactone] 25 mg PO DAILY #30 tab Nitroglycerin Sl Tabs [Nitrostat] 0.4 mg SUBLINGUAL Q5M PRN #30 tab PRN Reason: Chest Pain Metoprolol Tartrate [Lopressor] 25 mg PO QAM Discharge Medication List Aspirin [Adult Low Dose Aspirin EC] 81 mg PO DAILY #30 tab 11/11/22 [Rx] Atorvastatin [Lipitor] 80 mg PO HS #30 tab 11/11/22 [Rx] Dapagliflozin Propanediol [Farxiga] 10 mg PO DAILY 04/26/23 [History] Acetaminophen Tab [Tylenol] 650 mg PO Q4HR PRN tab 05/14/23 [Rx] Amiodarone [Cordarone] 400 mg PO BID #36 tab 05/14/23 [Rx] Clopidogrel [Plavix] 75 mg PO DAILY #30 tab 05/14/23 [Rx] Metoprolol Tartrate [Lopressor] 50 mg PO Q8HR #90 tab 05/14/23 [Rx] Pantoprazole [Protonix] 40 mg PO AC-BRKFST #30 tab 05/14/23 [Rx] Sennosides-Docusate Sodium [Senokot-S] 2 each PO HS PRN tab 05/14/23 [Rx] lisinopriL [Zestril] 10 mg PO HS #30 tab 05/14/23 [Rx] Follow up Appointment(s)/Referral(s): Flor Vee NPC [Nurse Practitioner] - 05/18/23 11:30 am (You will be seen in the surgeon's office behind the hospital in [facility], [address] Office phone number is ) Jonn Anaya MD [STAFF PHYSICIAN] - 2 Weeks (Will call you on Tuesday with appointment time) Rehab Hilda ,Cardiac [NON-STAFF] - 4 Weeks (You will receive a phone call in approximately 4-6 weeks for evaluation for cardiac rehab) Matt Feng DO [Primary Care Provider] - 2 Weeks (Will call you on Tuesday with appointment time) Del Lanza MD [STAFF PHYSICIAN] - 06/03/23 10:00 am Memo Medina MD [STAFF PHYSICIAN] - 2 Weeks (Will call you on Tuesday with appointment time) [facility] Visiting Nurse, [NON-STAFF] - 1-2 Days (Patient to be seen the day after discharge, then 2-3 times per week until starting cardiac rehab) Ambulatory/Diagnostic Orders: Complete Blood Count w/diff [LAB.AMB] Time Frame: 3 Days, Location: None Selected Comprehensive Metabolic Panel [LAB.AMB] Time Frame: 3 Days, Location: None Selected Activity/Diet/Wound Care/Special Instructions: DISCHARGE INSTRUCTIONS: 1. No driving for 4 weeks, or until physician gives their ok. 2. The patient should sleep in their own bed, no medical bed needed. 3. Stairs are not an issue. If the bedroom is upstairs, it is advised that the patient go up at night and down in the morning for the first week. Go slowly, using handrail and take 1 step at a time. 4. NICO hose are to be worn for 30 days post surgery or until physician discontinues. 5. Heart hugger is to be worn 100% of the time until physician discontinues.(except when showering) 6. No lifting, pushing, or pulling more than 10 pounds for 12 weeks. The physician will advise of any restriction changes. 7. The patient is expected to continue the prescribed walking program. 8. Continue pain control per as needed orders. 9. Continue with incentive spirometry and splinting/heart hugger until otherwise directed by the physician. 10. Must shower daily using liquid antibacterial soap 11. Routine sternal incision care. No powders, lotions, ointments on incisions. No dressings are necessary on incisions unless they are draining. Dermabond tape is to remain on sternal incision until surgeon follow-up. 12. Please call surgeon/SECOND MILLER for temp greater than 101 F or purulent drainage from incisions. 13. You should weigh yourself daily, record and bring log with you to follow up appointments. 14. All prescriptions given by surgeon for 30 days. Refills need to be filled through assistant manager trainee/primary care physician. 15. A Red armband has been placed on the patient. It should be worn for 30 days post discharge from surgery and will be removed by the cardiac surgeons. If an ER visit is necessary, please make sure the number on the Red armband is called before going to ER. 16. You have been referred to and are expected to begin Cardiac Rehab in approximately 4-6 weeks. 17. Quitting smoking is the most important step you can take to improve your health. For additional information and assistance to quit smoking, please call the [employer] tobacco quit line (9-071-ZQAD-NOW/ ) or online: [email or web address] [email or web address]/[email or web address]-[email or web address]-ijyj-tobacco HOME HEALTH SERVICES TO PROVIDE: RN SKILLED HOME CARE SERVICES FOR POST-OP SURGICAL PATIENTS WITH THE FOLLOWING: Coronary Artery Bypass Surgery (CABG), Mitral Valve Replacement/Repair ( MVR), Aortic Valve Replacement/Repair (AVR) RN TO CONTINUE EDUCATION FROM ``ROAD TO A HEALTH HEART PATIENT EDUCATION MANUAL (GIVEN TO PATIENT IN THE HOSPITAL) MEDICATION RECONCILIATION WITH EDUCATION NEEDED ON FIRST HOME VISIT EMPHASIZE IMPORTANCE OF WEARING BREAST SUPPORT/HEART HUGGER ENCOURAGE USE OF INCENTIVE SPIROMETER 10 X EVERY HOUR WHILE AWAKE ENCOURAGE UTILIZATION OF LOWER EXTREMITY COMPRESSION STOCKINGS/NICO HOSE and ELEVATE LEGS ABOVE LEVEL OF HEART WHILE AT REST. ENCOURAGE AMBULATION 3-5x/day INCREASING TOLERATES, WHILE AVOIDING EXTREMES IN TEMPERATURE FREQUENCY: RN TO OPEN THE PATIENT WITHIN 24 HOURS OF DISCHARGE FROM THE HOSPITAL WITH TELEHEALTH INSTALLED AT [facility] [place], RN TO VISIT 2-3 X A WEEK FOR 4 WEEKS ESTABLISHED BY PATIENT NEEDS. LABORATORY: CBC, CMP TO BE DRAWN ON THE THIRD DAY HOME, (RAN STAT) FAX RESULTS TO [phone]. TELEHEALTH PARAMETERS: WEIGHT: NOTIFY MD OF WEIGHT GAIN OF 2 LBS IN 24 HOURS OR 5 LBS IN ONE WEEK HR: NOTIFY MD OF HR <55 BPM OR HR>100 BPM BP: NOTIFY MD IF BP <90/55 OR BP>140/100 O2 SAT: NOTIFY MD IF PO2<93% ON ROOM AIR SEND TELEHEALTH REPORT TO MEDICAL CHIEF TECHNICIAN AND CARDIOVASCULAR SURGEON THE FIRST WEEK OF CARE AND THEN BI-WEEKLY. PLEASE ADDITIONALLY COMMUNICATE ANY ABNORMALS AND NEW FINDINGS TO THE SURGEONS OFFICE. Discharge Disposition: HOME WITH HOME HEALTH SERVICES
--- NOTE | 2023-05-14 18:26 | P.PN ---
Progress Note - Text Progress Note Date: 05/14/23 - History of Present Illness Patient is a 53-year-old male with history of CAD status post stent, recent cardiac arrest, type 2 diabetes, hypertension, systolic heart failure, dyslipidemia presenting for elective CABG. [facility] physicians has been consulted for medical management. Patient is currently in medical ICU. Intubated and sedated. May 11: I assumed care of the patient today. ICU. Sitting up in a recliner. Abdominal discomfort from a large gastric bubble. Try some aerated soda. simethicon drops.. Patient on clear liquids.. Sinus rhythm. 2 L nasal cannula. Patient taken off insulin drip this morning. Moran catheter in place. [address]. May 12: Sitting up in a chair. Chest tubes have been pulled out. On room air. Did walk about 10:15 steps. Moran has been taken out. Eating better. Breathing stable. May 13: Doing better. Eating better. Did walk in the hallway. On room air. Breathing stable. May 14: Patient doing well. Had a BM. Has been ambulating. Breathing stable. Questions answered. Follow-up with PCP.. Incision healing well. No respiratory urinary symptoms. No other source of any infection noted. On examination: VITAL SIGNS: 99.7, 82, 16, 10 3 x 61, 96% room air GENERAL APPEARANCE: Sitting up in a recliner. Comfortable HEENT: Normal external appearance of nose and ear. Oral cavity normal EYES: Pupils equal. Conjunctiva normal. NECK: JVD not raised. Mass not palpable. RESPIRATORY: Respiratory effort increased. Decreased breath sounds CARDIOVASCULAR: First and second sounds normal. No edema. ABDOMEN: Soft. Liver and spleen not palpable. No tenderness. No mass palpable. PSYCHIATRY: Alert and oriented x3. Mood and affect normal INVESTIGATIONS, reviewed in the clinical context: May 13: White count 3.9 hemoglobin 14 potassium 5 creatinine 1.38 May 12: White count 15.1 hemoglobin 13.8 platelets 200 sodium 131 potassium 4.7 BUN 16 creatinine 1.35 May 11: White count 15.6 hemoglobin 14.7 platelets 260 sodium 133 potassium 5.2 BUN 22 creatinine 1.49 Previous labs: Creatinine 1.11 on 11/11/2022. Assessment and plan: - CABG on May 10. By Dr. Luis. Chest tubes discontinued -CAD, with previous cardiac arrest Aspirin. Lipitor. Plavix. Lopressor. -Type 2 diabetes, on oral hypoglycemic Follow Accu-Cheks. Diet advanced -Essential Hypertension Lopressor -Chronic congestive heart failure from systolic dysfunction EF 30 to-35% from underlying ischemic heart disease Lopressor 25 mg twice a day. -Dyslipidemia Lipitor -Leukocytosis, reactive, expected outcome of surgery -Chronic kidney disease stage 3. Likely nephrosclerosis. Follow renal function closely -Large gastric bubble is seen on chest x-ray, Causing significant abdominal disc omfort.: Improved -Morbid obesity BMI 44.6 Weight loss measures -Full code Skin the patient. Questions answered. Follow-up with PCP. Thank you Past Medical History Past Medical History: Coronary Artery Disease (CAD), Chest Pain / Angina, Diabetes Mellitus, Hyperlipidemia, Hypertension, Myocardial Infarction ([place]) Additional Past Medical History / Comment(s): CAME IN VIA EMS IN CARDIAC ARREST- WENT INTO V-FIB AND WAS INTUBATED 11/06/22 Last Myocardial Infarction Date:: 11/06/22 History of Any Multi-Drug Resistant Organisms: None Reported Past Surgical History: Heart Catheterization With Stent, Orthopedic Surgery Additional Past Surgical History / Comment(s): RT LITTLE FINGER REATTACHED Past Anesthesia/Blood Transfusion Reactions: No Reported Reaction Date of Last Stent Placement:: 11/06/22 Smoking Status: Former smoker - Past Family History Mother Family Medical History: Myocardial Infarction ([place])
== END 2023-05-14 14:54 | disposition home health service (06) | DRG 236 ==
LOC: 2ORMAIN 05:38 → 2SICU 11:40 → 3SCARD 05-13 17:47
PROVIDERS: ADMIT Surgery; ATTEND Surgery
PROC: 4A0305C Measurement of Arterial Flow, Coronary, Open Approach (ICD-10-PCS; 2023-05-10)
PROC: B24BZZ4 Ultrasonography of Heart with Aorta, Transesophageal (ICD-10-PCS; 2023-05-10)
PROC: 02100Z9 Bypass Coronary Artery, One Artery from Left Internal Mammary, Open Approach (ICD-10-PCS; principal; 2023-05-10 08:00)
PROC: 02L74CK Occlusion of Left Atrial Appendage with Extraluminal Device, Percutaneous Endoscopic Approach (ICD-10-PCS; 2023-05-10 08:00)
DX: T82.855A Stenosis of coronary artery stent, initial encounter (principal); Z68.41 Body mass index [BMI] 40.0-44.9, adult; I13.0 Hypertensive heart and chronic kidney disease with heart failure and stage 1 through stage 4 chronic kidney disease, or unspecified chronic kidney disease; I25.110 Atherosclerotic heart disease of native coronary artery with unstable angina pectoris; I50.22 Chronic systolic (congestive) heart failure; E11.22 Type 2 diabetes mellitus with diabetic chronic kidney disease; N18.30 Chronic kidney disease, stage 3 unspecified; E66.01 Morbid (severe) obesity due to excess calories; D72.828 Other elevated white blood cell count; I25.5 Ischemic cardiomyopathy; Y71.1 Therapeutic (nonsurgical) and rehabilitative cardiovascular devices associated with adverse incidents; E78.00 Pure hypercholesterolemia, unspecified; Z86.74 Personal history of sudden cardiac arrest; I25.2 Old myocardial infarction; Z87.891 Personal history of nicotine dependence; Z95.5 Presence of coronary angioplasty implant and graft; Z82.49 Family history of ischemic heart disease and other diseases of the circulatory system; Z79.82 Long term (current) use of aspirin; Z79.899 Other long term (current) drug therapy; Z79.84 Long term (current) use of oral hypoglycemic drugs
CPT/HCPCS: 71045; 71046; 80048; 80053; 82330; 82805; 83735; 85025; 85027; 85520; 85610; 85730; 86850; 86900; 86901; 86920; 94002; 94640